=== PATIENT | female | born 1955 | race Caucasian/White ===

== ENCOUNTER → 2016-10-19 | Outpatient (CLI) | payer OTHER ==
[~2016-10-19] MED LIST: ADVIN25/60 INH; ALBU1AER9 INH; ASPI81TA28 PO; CHOL100010 PO; COEN1CAP PO; LEVO50TA6 PO; LOSA1TAB38 PO; METF-383 PO; MONT1TAB3 PO; POTA20TA16 PO; PRAV80TA2 PO; TRIATAB3 PO
--- NOTE | 2016-10-19 13:24 | MAMMOGRAPHY REPORT ---
BILATERAL DIGITAL SCREENING MAMMOGRAM TOMOSYNTHESIS WITH CAD: 10/19/2016 CLINICAL HISTORY: Routine screening examination. TECHNIQUE: Breast tomosynthesis in addition to standard 2D mammography was performed. Current study was also evaluated with a Computer Aided Detection (CAD) system. COMPARISON: Comparison is made to exams dated: 06/24/2015 mammogram, 03/24/2014 mammogram, 05/26/2010 [facility], and 11/28/2007. BREAST COMPOSITION: The tissue of both breasts is heterogeneously dense, which may obscure small mas ses. FINDINGS: There are stable asymmetries in the medial and lateral left breast, medial right breast an d subareolar right breast. No new suspicious mass, architectural distortion or cluster of microcalcif ications is seen. IMPRESSION: ACR BI-RADS CATEGORY 2: BENIGN There is no mammographic evidence of malignancy. A 1 year screening mammogram is recommended. The pa tient will receive written notification of the results. Approximately 10% of breast cancers are not detected with mammography. A negative mammographic report should not delay biopsy if a clinically suggestive mass is present. Stephanie Worrell M.D. ay/:10/19/2016 09:33:59 Riverboat Captain: Salima REYES(Ej)(M), [facility] letter sent: Normal 1/2 BI-RADS Code: ACR BI-RADS Category 2: Benign
== END | disposition home or self-care (01) ==
LOC: C.MAMM 08:49
PROVIDERS: ATTEND Obstetrics & Gynecology
DX: Z12.31 Encounter for screening mammogram for malignant neoplasm of breast (principal)

== ENCOUNTER → 2017-02-05 | Outpatient (CLI) | payer OTHER | END | disposition home or self-care (01) | LOC: C.PAPS 18:27 | PROVIDERS: ATTEND Obstetrics & Gynecology | DX: Z01.419 Encounter for gynecological examination (general) (routine) without abnormal findings (principal) ==

== ENCOUNTER 2020-01-09 09:20 | Inpatient (IN) ==
[2020-01-09] MEDS ORDERED: LORazepam 1 MG TAB PO STA (09:40)
[2020-01-09 10:14] LABS: Basophils # (auto) 0.02 K/uL (0-0.2); Basophils % (auto) 0.4 %; Eosinophils # (auto) 0.04 K/uL (0-0.5); Eosinophils % (auto) 0.8 %; Hemoglobin 14.4 g/dL (12.0-16.0); Lymphocytes # (auto) 1.24 K/uL (1.2-3.4); Lymphocytes % (auto) 24.2 %; Mean Corpuscular Hemoglobin 29.8 pg (25-34); Mean Corpuscular Hgb Conc 32.7 g/dL (32-36); Mean Corpuscular Volume 91.1 fL (80-100); Mean Platelet Volume 9.2 fL (7.4-10.4); Monocytes # (auto) 0.54 K/uL (0.11-0.59); Monocytes % (auto) 10.5 %; Neutrophils # (auto) 3.29 K/uL (1.4-6.5); Neutrophils % (auto) 64.1 %; Platelet Count 331 K/uL (130-400); RDW Coefficient of Variation 14.1 % (11.5-14.5); RDW Standard Deviation 47.4 fL (36.4-46.3); Red Blood Count 4.83 M/uL (4.2-5.4); White Blood Count 5.13 K/uL (4.8-10.8)
[2020-01-09 10:48] LABS: Acetaminophen < 2 ug/ml (10-30)
[2020-01-09 10:49] LABS: Salicylate < 1.7 mg/dl (2.8-20)
[2020-01-09 10:55] LABS: Albumin Level 3.4 gm/dl (3.4-5.0); BUN Creatinine Ratio 9.2 (10-20); Calcium 9.8 mg/dl (8.5-10.1); Creatinine Clr Calc Pharmacy 48.7 ml/min; Est GFR (African American) 68.1; Est GFR (Non-African American) 58.8; Potassium 3.8 mmol/L (3.5-5.1)
[2020-01-09 11:02] LABS: Appearance Urine Cloudy (Clear); Bacteria Urine Automated 4+ (Negative); Blood Urine Negative (Negative); Color Urine Dark Yellow; Epithelial Cell Urine Auto >30 /lpf (0-5); Glucose Urine UA Negative (Negative); Ketones Urine Negative (Negative); Leukocyte Esterase Urine 2+ (Negative); Nitrite Urine Negative (Negative); Protein Urine Negative (Negative); Specific Gravity Urine 1.021 (1.000-1.030); Urobilinogen Urine Negative (Negative); WBC Urine Automated >30 /hpf (0-5); pH Urine 5.5 (4.5-7.5)
[2020-01-09 11:06] LABS: Bilirubin Urine Negative (Negative); Ictotest Urine Negative (Negative)
[2020-01-09 11:16] LABS: Bilirubin,Total 0.7 mg/dl (0.2-1); Globulin 3.3 gm/dl (2.5-4.0); Thyroid Stimulating Hormone 0.522 uIu/ml (0.300-4.500); Total Protein 6.7 gm/dl (6.4-8.2)
[2020-01-09] MEDS ORDERED: CEFDINIR 300 MG CAP PO STA (11:48)
[2020-01-09 12:54] LABS: Amphetamines+Metham, Urine Neg (Neg); Barbiturates, Urine Neg (Neg); Benzodiazepine, Urine Neg (Neg); Cocaine, Urine Neg (Neg); MDMA (Ecstacy), Urine Neg (Neg); Methadone, Urine Neg (Neg); Opiate, Urine Neg (Neg); Phencyclidine, Urine Neg (Neg)
--- NOTE | 2020-01-09 13:29 | Emergency Department Note ---
History of Present Illness General Chief complaint: Mental Health Evaluation Stated complaint: DEPRESSION Time Seen by Provider: 01/09/20 09:28 Source: patient, family (), RN notes reviewed and old records reviewed Mode of arrival: ambulatory Limitations: no limitations History of Present Illness Provider complaint: Not taking medications, depressed, pacing Onset (ago): month(s) 1 Associated symptoms: + denies other symptoms; no chest pain, no diaphoresis, no fever/chills, no headaches, no loss of appetite, no nausea/vomiting and no shortness of breath Treatments prior to arrival: none This is a 64-year-old female who was sent in by her PCPs office directly to the emergency department over concerns that the patient has not been taking her medications for the past month. In addition to that the patient is not sleeping at night. The patient's reports that the patient is pacing around her house nonstop. Upon arrival to the emergency department the patient only says that she is sad. Most of the interview was conducted with the patient's as the patient is reluctant to answer questions. The patient continues to pace around the room while the interview was conducted. Home Medications Home Medications Medication Instructions Recorded Confirmed Type pyridoxine (vitamin B6) 50 mg 50 mg PO DAILY 04/17/19 01/09/20 History capsule albuterol sulfate [ProAir HFA] 2 puff INHALATION QID PRN 01/09/20 01/09/20 History amlodipine 10 mg PO DAILY 01/09/20 01/09/20 History aripiprazole 5 mg PO BID 01/09/20 01/09/20 History aspirin [Aspir-81] 81 mg PO DAILY 01/09/20 01/09/20 History cholecalciferol (vitamin D3) 25 mcg PO DAILY 01/09/20 01/09/20 History ciclopirox 1 applic TOPICAL HS 01/09/20 01/09/20 History coenzyme Q10 [CoQ-10] 90 mg PO DAILY 01/09/20 01/09/20 History fluticasone propion-salmeterol 1 inh INHALATION BID 01/09/20 01/09/20 History [Advair Diskus] fluticasone propionate [Flonase] 1 spray INTRANASAL DAILY 01/09/20 01/09/20 History metformin 500 mg PO BID 01/09/20 01/09/20 History montelukast 10 mg PO HS 01/09/20 01/09/20 History mupirocin 1 applic TOPICAL TID 01/09/20 01/09/20 History nortriptyline 50 mg PO HS 01/09/20 01/09/20 History pravastatin 80 mg PO HS 01/09/20 01/09/20 History telmisartan 80 mg PO DAILY 01/09/20 01/09/20 History Allergies Allergy/AdvReac Type Severity Reaction Status Date / Time atorvastatin Allergy Unknown GI UPSET Verified 04/17/19 08:47 Past Med/Surg History Medical History Callus of foot Diabetic peripheral neuropathy associated with type 2 diabetes mellitus Dysesthesia History of asthma History of diabetes mellitus History of hyperlipidemia History of hypertension History of hypothyroidism History of postmenopausal bleeding Surgical History Hx of colonoscopy S/P dilation and curettage Status post hysteroscopy with resection for intrauterine polyp removal- 1999 Family History Mother Cervical dysplasia Colonic polyp Brother Colonic polyp Sister Endometriosis Social History Smoking Status: Never smoker Hx Alcohol Use: No Hx Substance Use: No Preferred Language: Cypriot Communication Ability: Effective Piping Drafter Required: No Beliefs That Will Affect Care: Taoist (Patient indicates that she was raised [facility], but she and her have recently attended a [facility] latter-day.) marital status: Feels Safe at Home: Yes Assistive Devices: Glasses Review of Systems A total of 10 systems reviewed and were otherwise negative Physical Exam Vital Signs Vital Signs - 24 hr 01/09/20 12:16 Pulse Rate [Radial] 74 Pulse Rhythm [Radial] Regular Pulse Strength [Radial] Normal Respiratory Rate 18 Respiratory Effort / Characteristics Non-Labored Spontaneous Respiratory Depth Normal Respiratory Pattern Regular Blood Pressure [Right Arm] 159/99 H Blood Pressure Mean [Right Arm] 119 Pulse Oximetry 99 Oxygen Delivery Method Room Air -VITAL SIGNS - Vital signs and nursing notes were reviewed. GENERAL - 64-year-old female appearing stated age who is in no acute distress. Paces nonstop around the room SKIN - Without rashes. HEAD - NC/AT. EYES - PERRL with EOMI bilaterally. Sclera anicteric. Palpebral conjunctiva pink and moist with no injection noted. EARS - No deformities of external structures noted on gross examination bilaterally. No pain elicited with palpation of the tragus bilaterally. External auditory canals without discharge or otorrhea. Tympanic membranes pearly meade wi thout retraction or bulging. No fluid or purulent material visualized behind the TM. Handle of malleus, umbo, cone of light, pars tensa/flaccid all easily visualized. NOSE - Midline and without cyanosis. No epistaxis or purulent drainage noted. Septum midline without deviation or septal hematoma noted. MOUTH/OROPHARYNX - Without perioral cyanosis. Buccal mucosa pink and moist and without leukoplakia. Tongue midline with equal elevation of palate bilaterally. No tonsillar hypertrophy, erythema, or exudates noted. dentition noted. NECK - Neck with FROM. Supple to palpation. lymphadenopathy noted. No nuchal rigidity. LUNGS - Chest wall symmetric without accessory muscle use, intercostals retractions, or central cyanosis. Normal vesicular breath sounds CTA B/L. No wheezes, rales, or rhonchi appreciated. CARDIAC - RRR with S1/S2. No murmur, rubs, or gallops appreciated. ABDOMEN - Abdominal contour without pulsations or visible masses. BS normoactive all four quadrants. No tenderness, palpable masses, hepatosplenomegaly, or ascites noted. EXTREMITIES - No clubbing or peripheral cyanosis. No pretibial edema present. +3/5 radial, posterior tibial, and dorsalis pedis pulses palpated throughout. +5/5 strength noted in UE/LE bilaterally. NEUROLOGIC - Cranial nerves II through XII grossly intact. Sensory intact to light touch throughout. Patellar reflexes +2/4. PSYCH - A&Ox3 and cooperates fully with examiner. Pt is very pleasant and interacts well with examiner. Course Administered Medications Cefdinir (Cefdinir 300 Mg Cap) 300 mg PO Q12H [facility] Stop: 01/16/20 18:29 Last Admin: 01/10/20 06:16 Dose: 300 mg Documented by: [id number] Admin: 01/09/20 20:54 Dose: 300 mg Documented by: [id number] Diazepam (Diazepam 2 Mg Tablet) 2 mg PO TID [facility] Stop: 02/08/20 20:59 Last Admin: 01/10/20 09:12 Dose: 2 mg Documented by: [id number] Admin: 01/09/20 20:54 Dose: 2 mg Documented by: [id number] Metformin HCl (Metformin Hcl Er 500 Mg Tabcr) 500 mg PO BIDM MOHIT Stop: 02/08/20 17:44 Last Admin: 01/10/20 09:12 Dose: 500 mg Documented by: [id number] Admin: 01/09/20 17:38 Dose: 500 mg Documented by: [id number] Venlafaxine HCl (Venlafaxine Hcl Xr 37.5 Mg Capxr) 37.5 mg PO QAM MOHIT Stop: 02/09/20 08:59 Last Admin: 01/10/20 09:12 Dose: 37.5 mg Documented by: [id number] Discontinued Medications Cefdinir (Cefdinir 300 Mg Cap) 300 mg PO ONE STA Stop: 01/09/20 11:49 Last Admin: 01/09/20 12:07 Dose: 300 mg Documented by: [id number] Diazepam (Diazepam 5 Mg Tablet) 5 mg PO NOW STA Stop: 01/09/20 16:47 Last Admin: 01/09/20 17:02 Dose: 5 mg Documented by: [id number] Lorazepam (Lorazepam 1 Mg Tab) 1 mg PO NOW STA Stop: 01/09/20 09:41 Last Admin: 01/09/20 10:15 Dose: 1 mg Documented by: [id number] Medical Decision Making Differential Diagnosis Mood disorder, infection, hypoglycemia, electrolyte abnormalities, cardiac sources, intracerebral event, toxicologic, trauma, neurologic, as well as other pathologies. Medical Records Attestation: I reviewed the patient's medical records. Home Medications Current Medication List: was personally reviewed by me Laboratory Data Attestation: I reviewed the patient's lab results. Result diagrams: 01/09/20 09:57 01/09/20 09:57 Lab Results 01/09/20 01/09/20 01/09/20 Range/Units 09:57 09:57 09:57 WBC 5.13 (4.8-10.8) K/uL RBC 4.83 (4.2-5.4) M/uL Hgb 14.4 (12.0-16.0) g/dL Hct 44.0 (37-47) % MCV 91.1 (80-100) fL MCH 29.8 (25-34) pg MCHC 32.7 (32-36) g/dL RDW Std Deviation 47.4 H (36.4-46.3) fL RDW Coeff of Americo 14.1 (11.5-14.5) % Plt Count 331 (130-400) K/uL MPV 9.2 (7.4-10.4) fL Immature Gran % (Auto) 0.0 % Neut % (Auto) 64.1 % Lymph % (Auto) 24.2 % Harding % (Auto) 10.5 % Eos % (Auto) 0.8 % Baso % (Auto) 0.4 % Neut # (Auto) 3.29 (1.4-6.5) K/uL Lymph # (Auto) 1.24 (1.2-3.4) K/uL Harding # (Auto) 0.54 (0.11-0.59) K/uL Eos # (Auto) 0.04 (0-0.5) K/uL Baso # (Auto) 0.02 (0-0.2) K/uL Immature Gran # (Auto) 0.00 (0.00-0.02) K/uL Sodium 139 (136-145) mmol/L Potassium 3.8 (3.5-5.1) mmol/L Chloride 106 (98-107) mmol/L Carbon Dioxide 26 (21-32) mmol/L Anion Gap 7.0 (3-11) BUN 9 (7-18) mg/dl Creatinine 1.01 (0.6-1.2) mg/dl Est Cr Clr Drug Dosing 48.7 ml/min Est GFR ( Amer) 68.1 Est GFR (Non-Af Amer) 58.8 BUN/Creatinine Ratio 9.2 L (10-20) Glucose 164 H (70-99) mg/dl Calcium 9.8 (8.5-10.1) mg/dl Total Bilirubin 0.7 (0.2-1) mg/dl AST 17 (15-37) U/L ALT 21 (12-78) U/L Alkaline Phosphatase 85 (45-117) U/L Total Protein 6.7 (6.4-8.2) gm/dl Albumin 3.4 (3.4-5.0) gm/dl Globulin 3.3 (2.5-4.0) gm/dl Albumin/Globulin Ratio 1.0 (0.9-2) TSH 0.522 (0.300-4.500) uIu/ml Urine Color Urine Appearance (Clear) Urine pH (4.5-7.5) Ur Specific Stanford (1.000-1.030) Urine Protein (Negative) Urine Glucose (UA) (Negative) Urine Ketones (Negative) Urine Blood (Negative) Urine Nitrite (Negative) Urine Bilirubin (Negative) Urine Urobilinogen (Negative) Ur Leukocyte Esterase (Negative) Urine WBC (Auto) (0-5) /hpf Urine RBC (Auto) (0-4) /hpf U Hyaline Cast (Auto) (0-5) /lpf U Epithel Cells (Auto) (0-5) /lpf Urine Bacteria (Auto) (Negative) Urine Crystals Salicylates < 1.7 L (2.8-20) mg/dl Urine Opiates Screen Ur Methadone, Qual Acetaminophen < 2 L (10-30) ug/ml Urine Barbiturates Ur Phencyclidine (PCP) U Amphetamin/Meth Scrn MDMA (Ecstasy) Screen U Benzodiazepines Scrn Ur Cocaine Metabolite U Marijuana (THC) Screen Ethyl Alcohol mg/dL (0-3) mg/dl COVID-19 Eval Order SARS-CoV-2, RNA, NAAT (NEGATIVE) 01/09/20 01/09/20 01/09/20 Range/Units 09:57 10:48 10:48 WBC (4.8-10.8) K/uL RBC (4.2-5.4) M/uL Hgb (12.0-16.0) g/dL Hct (37-47) % MCV (80-100) fL MCH (25-34) pg MCHC (32-36) g/dL RDW Std Deviation (36.4-46.3) fL RDW Coeff of Americo (11.5-14.5) % Plt Count (130-400) K/uL MPV (7.4-10.4) fL Immature Gran % (Auto) % Neut % (Auto) % Lymph % (Auto) % Harding % (Auto) % Eos % (Auto) % Baso % (Auto) % Neut # (Auto) (1.4-6.5) K/uL Lymph # (Auto) (1.2-3.4) K/uL Harding # (Auto) (0.11-0.59) K/uL Eos # (Auto) (0-0.5) K/uL Baso # (Auto) (0-0.2) K/uL Immature Gran # (Auto) (0.00-0.02) K/uL Sodium (136-145) mmol/L Potassium (3.5-5.1) mmol/L Chloride (98-107) mmol/L Carbon Dioxide (21-32) mmol/L Anion Gap (3-11) BUN (7-18) mg/dl Creatinine (0.6-1.2) mg/dl Est Cr Clr Drug Dosing ml/min Est GFR ( Amer) Est GFR (Non-Af Amer) BUN/Creatinine Ratio (10-20) Glucose (70-99) mg/dl Calcium (8.5-10.1) mg/dl Total Bilirubin (0.2-1) mg/dl AST (15-37) U/L ALT (12-78) U/L Alkaline Phosphatase (45-117) U/L Total Protein (6.4-8.2) gm/dl Albumin (3.4-5.0) gm/dl Globulin (2.5-4.0) gm/dl Albumin/Globulin Ratio (0.9-2) TSH (0.300-4.500) uIu/ml Urine Color Dark Yellow Urine Appearance Cloudy A (Clear) Urine pH 5.5 (4.5-7.5) Ur Specific Stanford 1.021 (1.000-1.030) Urine Protein Negative (Negative) Urine Glucose (UA) Negative (Negative) Urine Ketones Negative (Negative) Urine Blood Negative (Negative) Urine Nitrite Negative (Negative) Urine Bilirubin Negative (Negative) Urine Urobilinogen Negative (Negative) Ur Leukocyte Esterase 2+ H (Negative) Urine WBC (Auto) >30 H (0-5) /hpf Urine RBC (Auto) 5-10 H (0-4) /hpf U Hyaline Cast (Auto) 10-30 H (0-5) /lpf U Epithel Cells (Auto) >30 H (0-5) /lpf Urine Bacteria (Auto) 4+ H (Negative) Urine Crystals Not Reportable Salicylates (2.8-20) mg/dl Urine Opiates Screen Cancelled Ur Methadone, Qual Cancelled Acetaminophen (10-30) ug/ml Urine Barbiturates Cancelled Ur Phencyclidine (PCP) Cancelled U Amphetamin/Meth Scrn Cancelled MDMA (Ecstasy) Screen Cancelled U Benzodiazepines Scrn Cancelled Ur Cocaine Metabolite Cancelled U Marijuana (THC) Screen Cancelled Ethyl Alcohol mg/dL < 3.0 (0-3) mg/dl COVID-19 Eval Order SARS-CoV-2, RNA, NAAT (NEGATIVE) 01/09/20 01/09/20 01/09/20 Range/Units 12:05 12:16 12:16 WBC (4.8-10.8) K/uL RBC (4.2-5.4) M/uL Hgb (12.0-16.0) g/dL Hct (37-47) % MCV (80-100) fL MCH (25-34) pg MCHC (32-36) g/dL RDW Std Deviation (36.4-46.3) fL RDW Coeff of Americo (11.5-14.5) % Plt Count (130-400) K/uL MPV (7.4-10.4) fL Immature Gran % (Auto) % Neut % (Auto) % Lymph % (Auto) % Harding % (Auto) % Eos % (Auto) % Baso % (Auto) % Neut # (Auto) (1.4-6.5) K/uL Lymph # (Auto) (1.2-3.4) K/uL Harding # (Auto) (0.11-0.59) K/uL Eos # (Auto) (0-0.5) K/uL Baso # (Auto) (0-0.2) K/uL Immature Gran # (Auto) (0.00-0.02) K/uL Sodium (136-145) mmol/L Potassium (3.5-5.1) mmol/L Chloride (98-107) mmol/L Carbon Dioxide (21-32) mmol/L Anion Gap (3-11) BUN (7-18) mg/dl Creatinine (0.6-1.2) mg/dl Est Cr Clr Drug Dosing ml/min Est GFR ( Amer) Est GFR (Non-Af Amer) BUN/Creatinine Ratio (10-20) Glucose (70-99) mg/dl Calcium (8.5-10.1) mg/dl Total Bilirubin (0.2-1) mg/dl AST (15-37) U/L ALT (12-78) U/L Alkaline Phosphatase (45-117) U/L Total Protein (6.4-8.2) gm/dl Albumin (3.4-5.0) gm/dl Globulin (2.5-4.0) gm/dl Albumin/Globulin Ratio (0.9-2) TSH (0.300-4.500) uIu/ml Urine Color Urine Appearance (Clear) Urine pH (4.5-7.5) Ur Specific Stanford (1.000-1.030) Urine Protein (Negative) Urine Glucose (UA) (Negative) Urine Ketones (Negative) Urine Blood (Negative) Urine Nitrite (Negative) Urine Bilirubin (Negative) Urine Urobilinogen (Negative) Ur Leukocyte Esterase (Negative) Urine WBC (Auto) (0-5) /hpf Urine RBC (Auto) (0-4) /hpf U Hyaline Cast (Auto) (0-5) /lpf U Epithel Cells (Auto) (0-5) /lpf Urine Bacteria (Auto) (Negative) Urine Crystals Salicylates (2.8-20) mg/dl Urine Opiates Screen Neg Ur Methadone, Qual Neg Acetaminophen (10-30) ug/ml Urine Barbiturates Neg Ur Phencyclidine (PCP) Neg U Amphetamin/Meth Scrn Neg MDMA (Ecstasy) Screen Neg U Benzodiazepines Scrn Neg Ur Cocaine Metabolite Neg U Marijuana (THC) Screen Neg Ethyl Alcohol mg/dL (0-3) mg/dl COVID-19 Eval Order Covid19 [facility] SARS-CoV-2, RNA, NAAT NEGATIVE (NEGATIVE) MDM Narrative This 64-year-old female who presents emergency department complaining of pacing nonstop and not taking her medications for the past month. The patient was sent in by her primary care physician. Patient had been admitted to the [facility] approximately 2 months ago however per her they did nothing and did not change any of her medications. The patient was medically cleared by me. She is oliva negative. She does appear to have a urinary tract infection therefore was started on cefdinir here in the emergency department. She was independently evaluated by psychiatric case liaison. She does not have an elevation in her white blood cell count. Patient was seen and evaluated as above in room A5. Review was performed of nursing notes and vital signs. I did review pertinent previous visits and patient history. After obtaining a thorough history and physical examination the above work up was performed. Patient was then independently evaluated by 3 S. and was subsequently admitted. The patient was evaluated during the global COVID-19 pandemic, and that diagnosis was suspected/considered upon their initial presentation. Their evaluation, treatment and testing was consistent with current guidelines for patients who present with complaints or symptoms that may be related to COVID- 19. Impression & Plan UTI (urinary tract infection), Mood disorder Discharge Plan Visit Data Chief Complaint: Mental Health Evaluation Stated Complaint: DEPRESSION ED Provider: Sarkis Cantu Discharge Problem: UTI (urinary tract infection), Mood disorder Patient Disposition: Admitted As Inpatient Discharge Instructions Interventions: ED Discharge Assessment Last Done: 01/09/20 15:47 Discharge Problem: UTI (urinary tract infection) Qualifiers: Urinary tract infection type: site unspecified Hematuria presence: without hematuria Qualified Code(s): N39.0 - Urinary tract infection, site not specified
[2020-01-09] MEDS ORDERED: ACETAMINOPHEN 325 MG TAB PO PRN (14:08)
[2020-01-09] MEDS ORDERED: ALUMINUM/MAGNESIUM SUSP 30 ML UDC PO PRN (14:08)
[2020-01-09] MEDS ORDERED: SODIUM CHLORIDE 0.65% NA SOLN 45 ML (OCEAN) PRN (14:08)
[2020-01-09] MEDS ORDERED: MAGNESIUM HYDROXIDE SUSP 30 ML UDC PO PRN (14:08)
[2020-01-09] MEDS ORDERED: hydrOXYzine HCl 25 MG TAB PO PRN ×2 (14:08)
[2020-01-09] MEDS ORDERED: BISMUTH SUBSALICYLATE LIQD 236 ML PO PRN (14:08)
[2020-01-09] MEDS ORDERED: diazePAM 5 MG TABLET PO STA (16:46)
--- NOTE | 2020-01-09 17:29 | History & Physical ---
Date of Service January 09, 2020 Impression / Recommendations Impression This 64-year-old woman reportedly had no premorbid psychiatric history, and is recently as last year was described as being high functioning, "in charge," and happy. 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 She was hospitalized in October at the [facility], and was discharged for outpatient treatment with a psychiatrist, but has not followed through recently. Her symptoms of depression reportedly include depressed mood, and although the patient says "I cannot cry," she cried during the assessment today. She also notes that she has initial, intermittent and terminal insomnia. Further, the patient reports difficulty concentrating, ambivalence, apathy, anhedonia, anergia, irritable mood, and fretful ruminations and severe anxious distress. The patient says that her anxious distress includes feelings that something terrible is about to happen, that, for example, something might happen to her children and she will not be in a position to help them, and she feels extremely restless and unable to sit still for more than a matter of a few minutes. Her concentration has become so poor that she cannot stand to watch television or read. About a month ago, the patient stopped all of her medications, including her somatic medications as well as her psychiatric medications. She has a history of type 2 diabetes, hypertension, hyperlipidemia, and asthma, but notes that taking her medications for these conditions makes her "more anxious" and she worries about the negative effects they may have on her long-term health. Also, she has stopped all psychiatric medications which, most recently had been aripiprazole and nortriptyline. She has a tendency to catastrophize and make sleeping statements such as "nothing helps. Nothing ever well," but she also acknowledges that she finally did get some relief earlier today when she was given lorazepam 1 mg in the emergency room. She notes that the anxiety abated, but the improvement did not last and was rekindled when she learned that the recommendation was for her to be admitted to the psychiatric unit. It is not clear to what degree the patient has not been sleeping, but she may be experiencing akathisia associated with sleep deprivation. More likely, the patient is experiencing severe generalized anxiety and is simply overwhelmed by her fretful negative thoughts. Some of the patient's fears of border on the psychotic. For example, she tells me that she is constantly afraid that something "terrible" may happen to 1 of her children or 1 of her grandchildren and that she will not be in a position to rescue them." When asked what she is afraid could happen, she said "anything. This is not a safe world." Given the fact that the patient has reported that she has responded to benzodiazepines in the past, I have talked to her about the temporary use of a relatively long- acting benzodiazepine such as diazepam. Have also talked to her about various psychiatric medications that may help with both her depression and anxiety, such as venlafaxine or Lexapro. The patient tells us that she is able to trust us, but is deeply afraid that she will be turned into a "zombie" by which she means that she will be asleep or confined to a chair. 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 The patient states, "we did everything we could to raise them right. In a way I feel responsible for what happened." (Collateral information from the patient's in this regard will be important.) The biggest concern is the fact that the patient not only has not been taking her medicine, but has been eating poorly and is not sleeping or otherwise caring for her own physical needs (according to her ). In this case, the patient's depression and anxiety have rendered her gravely disabled and inpatient psychiatric hospitalization is currently in the least intensive, least restrictive level of care consistent with the patient's clinical needs and safety. Because the patient is very reluctant to take medications, we were withholding her antihypertensive medication because her blood pressure is not currently elevated and her oral intake has been poor. We will continue to monitor her blood pressure. We also are not ordering her statin because of the patient's current anxieties about taking medication and we feel that this is a medication that may be omitted safely, temporarily, until the patient's psychiatric condition improves. (1) Severe depression: 01/08 -The patient has been admitted to the inpatient psychiatric service at [facility], a [facility] behavioral health unit. She has been referred for individual, group, activity and family therapy. She is also being closely monitored. -Begin venlafaxine ER 37.5 mg twice a day. Present on Admission?: Yes (2) Severe anxiety: 01/08 -The patient has been given a medically necessary private room because of her extreme restlessness and need to pace. -Patient has been offered a trial of diazepam 5 mg by mouth. The context is that the patient's report that lorazepam 1 mg by mouth providers earlier in the day was helpful to her, but the benefit was not sustained. Accordingly, we will try diazepam because it is longer acting. -As tolerated, the patient will be given diazepam 2 mg 3 times daily as a standing dose medication. -Hydroxyzine is available as an as needed medication. She will also be eligible to receive hydroxyzine 50 mg at bedtime for sleep, and her third dose of diazepam 2 mg will be given near to the hours of sleep, and may serve as a soporific. (3) UTI (urinary tract infection): 01/08 -Although the patient does not complain of any urinary tract infection symptoms, there were 4+ bacteria in her urine sample, and it was recommended in the emergency department that she be treated with an antibiotic empirically. -We will continue to monitor for symptoms of urinary tract infection Present on Admission?: Yes (4) Callus of foot: 01/08 -This is currently being monitored. No intervention is believed to be necessary at the present time. Present on Admission?: Yes Inventory Assets Strengths: Positive premorbid history. Strong supportive marriage. Intelligent. Needs: Improved mood. Risk Factors Assessment Severe depression. Multiple psychosocial stressors. Male: No : Yes Do You Have Access To A Gun?: No Health Problems: Yes Mental Health Diagnoses: Yes Substance Use Disorders: No Previous Attempt: No Family History of Suicide: No Previous Psychiatric Hospitalization: Yes Hopelessness: Yes Smoker: No Protective Factors Assessment Nondenominational Beliefs: Yes : Yes Responsible for Young Children: No Employed: No Stable Relationships: Yes Supportive Family: Yes Good Rapport with Provider: No Absence of Any Risk Factors Above: No Psychiatric History Identifying Data DELMI RAMIREZ is a 64-year-old F who currently lives in the [place] area with her . Has a history of anxiety and depression, and was admitted on 01/09/20 14:08 on a 201 voluntary commitment for intractable anxiety, inability to adequately care for her own physical needs, and severe depression.. Chief Complaint " I am so nervous!" History of Present Illness The patient is a 64-year-old woman who had been referred to the emergency room from her primary care physician's office because she disclosed that she had stopped taking all of her medications (somatic and psychiatric) approximately a month ago because of severe anxiety and feelings of impending doom. History is gathered both from the patient and, and directly, from her . The patient reports that until she did not have a history of any psychiatric illnesses. However, in the past 3 or 4 months the patient has developed the fairly rapid onset of severe symptoms of depression and anxiety. 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 Once later, when the business restrictions were revised and it would have been possible for her to reopen her business, she said that she had lost all of her customers and did not know how to go about reestablishing herself. The closure of the business represented a personal defeat for the patient and, also, placed a financial hardship on the family (at least according to the patient). Also, the patient notes that for about the past year she and her have been attempting to assist their 3 adult childrenall 3 of which reportedly have various problems, including marital difficulties and other problems that the patient declines to identify. Within this context, the patient became aware that her anxiety was worsening. She reports that her mood became very depressed, and she experienced other symptoms of depression including apathy, anergia, anhedonia, poor concentration ("I cannot even watch television") and severe anxious distress with a tendency to fret, catastrophize, and ruminate excessively. The patient describes her anxiety as feeling "extremely jumpy," and she notes that it is extremely difficult for her to sit still. Her notes that she is not sleeping very well, and seems to pace almost continuously at home. There is no cogwheeling on examination and, as above, the patient reports that she had stopped all of her medications approximately a month ago. She was hospitalized psychiatrically at [place], and was placed on several psychiatric medications, including but not limited to sertraline and Abilify. The patient reported these medications did not help, and she states, "nothing has helped!" According to the , this time last year the patient was a high functioning woman who ran a successful business and was a source of emotional support for a number of other people. The patient, herself, says that this time last year she "had the world by the tail," but now she is "barely able to function." Within this context, the patient notes that she has lost approximately 35 pounds because she has had no appetite. She notes that the reason that she is not taking medications is that she is afraid of him because she is afraid that they will turn her into a "zombie," and that she will end up "1 of those people who sleeps all the time and just stares at the torres." Past Psychiatric History Previous Psych History: Patient reports no premorbid psychiatric history. There is no previous episode of depression or anxiety. She reports that the current episode began approximately 3 or 4 months ago and included [facility]. She also is being followed on an outpatient basis by a local psychiatrist, and indicates that she has been tried on "lots of medications." She recalls that she took Zoloft at one point in the past, but stopped it because "it seemed like it made me worse." She most recently has been prescribed aripiprazole and nortriptyline, but also says that she does not feel that these were helpful medications and, as above, stopped taking them in November 2019. Current Psychiatric Diagnosis: Major Depressive Disorder Outpatient Services: Patient has been followed on an outpatient basis by a local psychiatrist, but she reports that she dropped out of treatment. Previous Psych Admissions: [place], for an unspecified period of time in October 2019. Do You Have Access To A Gun?: No History of Previous Suicide Attempt: No Past Medication Trials: Sertraline, aripiprazole, nortriptyline, and others that the patient cannot name or recall. Although the patient reported during the admission assessment that "nothing has ever helped," she later allowed that a dose of lorazepam that she had received in the emergency department did help significantly, but the relief was short-lived and dissipated after learning that she was going to be admitted to the psychiatric service. Past Head Trauma/Neuro History History of Concussion/Seizure: No Allergies Allergy/AdvReac Type Severity Reaction Status Date / Time atorvastatin Allergy Unknown GI UPSET Verified 04/17/19 08:47 Home Medications Home Medications Medication Instructions Recorded Confirmed Type pyridoxine (vitamin B6) 50 mg 50 mg PO DAILY 04/17/19 01/09/20 History capsule albuterol sulfate [ProAir HFA] 2 puff INHALATION QID PRN 01/09/20 01/09/20 History amlodipine 10 mg PO DAILY 01/09/20 01/09/20 History aripiprazole 5 mg PO BID 01/09/20 01/09/20 History aspirin [Aspir-81] 81 mg PO DAILY 01/09/20 01/09/20 History cholecalciferol (vitamin D3) 25 mcg PO DAILY 01/09/20 01/09/20 History ciclopirox 1 applic TOPICAL HS 01/09/20 01/09/20 History coenzyme Q10 [CoQ-10] 90 mg PO DAILY 01/09/20 01/09/20 History fluticasone propion-salmeterol 1 inh INHALATION BID 01/09/20 01/09/20 History [Advair Diskus] fluticasone propionate [Flonase] 1 spray INTRANASAL DAILY 01/09/20 01/09/20 History metformin 500 mg PO BID 01/09/20 01/09/20 History montelukast 10 mg PO HS 01/09/20 01/09/20 History mupirocin 1 applic TOPICAL TID 01/09/20 01/09/20 History nortriptyline 50 mg PO HS 01/09/20 01/09/20 History pravastatin 80 mg PO HS 01/09/20 01/09/20 History telmisartan 80 mg PO DAILY 01/09/20 01/09/20 History Family History Family History of: Bipolar Family Mental Health History Comment: The patient reports that her sister was diagnosed with bipolar disorder, but "outgrew it." At the same time, the patient reports that her sister has been actively encouraging her to seek psychiatric treatment and adhere with recommendations, including medication recommendations. Alcohol History Hx of Alcohol Use Over the Past 12 Months: No AUDIT Total Score: 0 Smoking Use Have You Smoked or Used Tobacco Products in the Last 30 Days: No Smoking Status: Never smoker Substance History Hx of Prescription Med Misuse Over the Past 12 Months: No Hx of Over the Counter Med Misuse Over the Past 12 Months: No Hx of Inhalent Misuse Over the Past 12 Months: No Hx of Organic Substance Use Over the Past 12 Months: No Hx of Illegal Substances/Street Drug Use Over Past 12 Months: No Problems as a Result of Past Substance Use: None Identified Personal History Living Arrangements: Home Living Arrangements Comments: The patient has been for approximately 44 years. She notes that she and her have a mutually supportive and happy marriage. The patient lives with her . Born In: [place]. 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 None of her children live in [place]. However, one her grandchildren lives with the patient's [id number] in [place]. Beliefs That Will Affect Care: Nondenominational (Patient indicates that she was raised [facility], but she and her have recently attended a [facility] baptism.) Current Legal Problems: No Hx Legal Problems: No Hx Traumatic Life Events: No Psychological Trauma History Comment: The patient reports that she had a happy childhood and there is no history of trauma. The loss of her business was a precipitating factor in her current depression Patient History Medical History Callus of foot Diabetic peripheral neuropathy associated with type 2 diabetes mellitus Dysesthesia History of asthma History of diabetes mellitus History of hyperlipidemia History of hypertension History of hypothyroidism History of postmenopausal bleeding Surgical History Hx of colonoscopy S/P dilation and curettage Status post hysteroscopy with resection for intrauterine polyp removal- 1999 Family History Mother Cervical dysplasia Colonic polyp Brother Colonic polyp Sister Endometriosis Social History Smoking Status: Never smoker Hx Alcohol Use: No Hx Substance Use: No Preferred Language: Amharic Communication Ability: Effective Manager Policy Required: No Beliefs That Will Affect Care: Nondenominational (Patient indicates that she was raised [facility], but she and her have recently attended a [employer] baptism.) marital status: Feels Safe at Home: Yes Assistive Devices: Glasses Review of Systems Review of Systems: All systems reviewed & are unremarkable except as noted in HPI & below The admission physical examination, somatic history and review of systems is completed by Dr. Sarkis Cantu of the emergency department has been reviewed and is excepted for purposes of medical clearance to the behavioral health unit. As part of the psychiatric admission assessment, at least 10 systems were reviewed with the patient. She initially said that she had "no" nonpsychiatric health problems. However, when confronted with the fact that she is taking metformin, or is supposed to be, she acknowledged type 2 diabetes, hypercholesterolemia, hypertension, and asthma. She also has painful bunions on both feet. Physical Exam Psychiatric: Orientation: alert, oriented x 3 and cooperative Apperance: appropriately dressed, appropriately groomed and appeared stated age Eye Contact: + fair eye contact Motor Behavior: + psychomotor agitation and + akathisia The patient is unable to sit still for more than a few minutes and paces almost constantly throughout the examination. The patient's speech is soft, slow, and generally not spontaneous. Affect: + depressed affect, + anxious affect and + tearful affect Mood: + depressed mood, + anxious mood and + irritable mood Thought Process: goal directed thought process and + perseveration Thought Content: reality based without delusions Suicidal Thoughts: denies suicidal thoughts Homicidal Thoughts: denies homicidal thoughts Hallucinations: no auditory hallucinations, no visual hallucinations, no tactile hallucinations and no gustatory hallucinations Cognition: recent memory grossly intact, remote memory grossly intact and language grossly intact; + attention not intact Estimated Intelligence: + above average estimated intelligence Insight: + poor insight Judgement: + poor judgement Vital Signs (Past 24 Hours): Last Vital Signs Temp 36.8 C 01/09/20 16:30 Pulse 101 H 01/09/20 16:30 Resp 22 01/09/20 16:30 BP 125/76 01/09/20 16:30 Pulse Ox 98 01/09/20 16:30 Results & Data ([facility]) Laboratory Results Laboratory Results - last 24 hr 01/09/20 01/09/20 01/09/20 09:57 09:57 09:57 WBC 5.13 RBC 4.83 Hgb 14.4 Hct 44.0 MCV 91.1 MCH 29.8 MCHC 32.7 RDW Std Deviation 47.4 H RDW Coeff of Americo 14.1 Plt Count 331 MPV 9.2 Immature Gran % (Auto) 0.0 Neut % (Auto) 64.1 Lymph % (Auto) 24.2 [place] % (Auto) 10.5 Eos % (Auto) 0.8 Baso % (Auto) 0.4 Neut # (Auto) 3.29 Lymph # (Auto) 1.24 [place] # (Auto) 0.54 Eos # (Auto) 0.04 Baso # (Auto) 0.02 Immature Gran # (Auto) 0.00 Sodium 139 Potassium 3.8 Chloride 106 Carbon Dioxide 26 Anion Gap 7.0 BUN 9 Creatinine 1.01 Est Cr Clr Drug Dosing 48.7 Est GFR ( Amer) 68.1 Est GFR (Non-Af Amer) 58.8 BUN/Creatinine Ratio 9.2 L Glucose 164 H Calcium 9.8 Total Bilirubin 0.7 AST 17 ALT 21 Alkaline Phosphatase 85 Total Protein 6.7 Albumin 3.4 Globulin 3.3 Albumin/Globulin Ratio 1.0 TSH 0.522 Urine Color Urine Appearance Urine pH Ur Specific Lynn Urine Protein Urine Glucose (UA) Urine Ketones Urine Blood Urine Nitrite Urine Bilirubin Urine Urobilinogen Ur Leukocyte Esterase Urine WBC (Auto) Urine RBC (Auto) U Hyaline Cast (Auto) U Epithel Cells (Auto) Urine Bacteria (Auto) Urine Crystals Salicylates < 1.7 L Urine Opiates Screen Ur Methadone, Qual Acetaminophen < 2 L Urine Barbiturates Ur Phencyclidine (PCP) U Amphetamin/Meth Scrn MDMA (Ecstasy) Screen U Benzodiazepines Scrn Ur Cocaine Metabolite U Marijuana (THC) Screen Ethyl Alcohol mg/dL COVID-19 Eval Order SARS-CoV-2, RNA, NAAT 01/09/20 01/09/20 01/09/20 09:57 10:48 10:48 WBC RBC Hgb Hct MCV MCH MCHC RDW Std Deviation RDW Coeff of Americo Plt Count MPV Immature Gran % (Auto) Neut % (Auto) Lymph % (Auto) [place] % (Auto) Eos % (Auto) Baso % (Auto) Neut # (Auto) Lymph # (Auto) [place] # (Auto) Eos # (Auto) Baso # (Auto) Immature Gran # (Auto) Sodium Potassium Chloride Carbon Dioxide Anion Gap BUN Creatinine Est Cr Clr Drug Dosing Est GFR ( Amer) Est GFR (Non-Af Amer) BUN/Creatinine Ratio Glucose Calcium Total Bilirubin AST ALT Alkaline Phosphatase Total Protein Albumin Globulin Albumin/Globulin Ratio TSH Urine Color Dark Yellow Urine Appearance Cloudy A Urine pH 5.5 Ur Specific Lynn 1.021 Urine Protein Negative Urine Glucose (UA) Negative Urine Ketones Negative Urine Blood Negative Urine Nitrite Negative Urine Bilirubin Negative Urine Urobilinogen Negative Ur Leukocyte Esterase 2+ H Urine WBC (Auto) >30 H Urine RBC (Auto) 5-10 H U Hyaline Cast (Auto) 10-30 H U Epithel Cells (Auto) >30 H Urine Bacteria (Auto) 4+ H Urine Crystals Not Reportable Salicylates Urine Opiates Screen Cancelled Ur Methadone, Qual Cancelled Acetaminophen Urine Barbiturates Cancelled Ur Phencyclidine (PCP) Cancelled U Amphetamin/Meth Scrn Cancelled MDMA (Ecstasy) Screen Cancelled U Benzodiazepines Scrn Cancelled Ur Cocaine Metabolite Cancelled U Marijuana (THC) Screen Cancelled Ethyl Alcohol mg/dL < 3.0 COVID-19 Eval Order SARS-CoV-2, RNA, NAAT 01/09/20 01/09/20 01/09/20 12:05 12:16 12:16 WBC RBC Hgb Hct MCV MCH MCHC RDW Std Deviation RDW Coeff of Americo Plt Count MPV Immature Gran % (Auto) Neut % (Auto) Lymph % (Auto) [place] % (Auto) Eos % (Auto) Baso % (Auto) Neut # (Auto) Lymph # (Auto) [place] # (Auto) Eos # (Auto) Baso # (Auto) Immature Gran # (Auto) Sodium Potassium Chloride Carbon Dioxide Anion Gap BUN Creatinine Est Cr Clr Drug Dosing Est GFR ( Amer) Est GFR (Non-Af Amer) BUN/Creatinine Ratio Glucose Calcium Total Bilirubin AST ALT Alkaline Phosphatase Total Protein Albumin Globulin Albumin/Globulin Ratio TSH Urine Color Urine Appearance Urine pH Ur Specific Lynn Urine Protein Urine Glucose (UA) Urine Ketones Urine Blood Urine Nitrite Urine Bilirubin Urine Urobilinogen Ur Leukocyte Esterase Urine WBC (Auto) Urine RBC (Auto) U Hyaline Cast (Auto) U Epithel Cells (Auto) Urine Bacteria (Auto) Urine Crystals Salicylates Urine Opiates Screen Neg Ur Methadone, Qual Neg Acetaminophen Urine Barbiturates Neg Ur Phencyclidine (PCP) Neg U Amphetamin/Meth Scrn Neg MDMA (Ecstasy) Screen Neg U Benzodiazepines Scrn Neg Ur Cocaine Metabolite Neg U Marijuana (THC) Screen Neg Ethyl Alcohol mg/dL COVID-19 [facility] SARS-[facility], RNA, NAAT NEGATIVE Current Inpatient Medications Current Inpatient Medications: Current Inpatient Medications Acetaminophen (Acetaminophen 325 Mg Tab) 650 mg PO Q4H PRN PRN Reason: Headache or Minor Fever Stop: 02/08/20 14:07 Al Hydrox/Mg Hydrox/Simethicone (Aluminum/Magnesium Susp 30 Ml Udc) 30 ml PO Q4H PRN PRN Reason: GI Upset Stop: 02/08/20 14:07 Bismuth Subsalicylate (Bismuth Subsalicylate Liqd 236 Ml) 15 ml PO PRN PRN PRN Reason: Loose Stool Stop: 02/08/20 14:07 Diazepam (Diazepam 2 Mg Tablet) 2 mg PO TID MOHIT Stop: 02/08/20 20:59 Hydroxyzine HCl (Hydroxyzine Hcl 25 Mg Tab) 50 mg PO HSZ PRN PRN Reason: Insomnia Stop: 02/08/20 14:07 Hydroxyzine HCl (Hydroxyzine Hcl 25 Mg Tab) 25 mg PO Q4H PRN PRN Reason: Anxiety Stop: 02/08/20 14:07 Magnesium Hydroxide (Magnesium Hydroxide Susp 30 Ml Udc) 30 ml PO DAILY PRN PRN Reason: Constipation Stop: 02/08/20 14:07 Metformin HCl (Metformin Hcl Er 500 Mg Tabcr) 500 mg PO BIDM MOHIT Stop: 02/08/20 17:44 Sodium Chloride (Sodium Chloride 0.65% Na Soln 45 Ml ([facility])) 1 - 2 sprays NA PRN PRN PRN Reason: Nasal Dryness/Congestion Stop: 02/08/20 14:07 Venlafaxine HCl (Venlafaxine Hcl Xr 37.5 Mg Capxr) 37.5 mg PO QAM MOHIT Stop: 02/09/20 08:59
[2020-01-09] MEDS: metFORMIN HCL ER 500 MG TABCR PO SCH (17:38)
[2020-01-09] MEDS: diazePAM 2 MG TABLET PO SCH (20:54)
[2020-01-09] MEDS: CEFDINIR 300 MG CAP PO SCH (20:54)
[2020-01-10] MEDS: CEFDINIR 300 MG CAP PO SCH ×2 (06:16→18:21)
[2020-01-10 08:39] LABS: Glucose Fasting 120 mg/dl (70-99)
[2020-01-10 08:45] LABS: Chol HDL Ratio 4; Cholesterol 222 mg/dl (0-200); HDL Cholesterol 59 mg/dl; LDL Cholesterol Calculated 129 mg/dl; Triglycerides 170 mg/dl (0-150); VLDL Cholesterol 34 mg/dl
[2020-01-10] MEDS: metFORMIN HCL ER 500 MG TABCR PO SCH ×2 (09:12→17:33)
[2020-01-10] MEDS: VENLAFAXINE HCL XR 37.5 MG CAPXR PO SCH (09:12)
[2020-01-10] MEDS: diazePAM 2 MG TABLET PO SCH ×3 (09:12→20:52)
--- NOTE | 2020-01-10 11:01 | Psychiatric Progress Note ---
Date of Service January 10, 2020 Impression / Recommendations Impression This 64-year-old woman reportedly had no premorbid psychiatric history, and is recently as last year was described as being high functioning, "in charge," and happy. 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 She was hospitalized in October at the [facility], and was discharged for outpatient treatment with a psychiatrist, but has not followed through recently. Her symptoms of depression reportedly include depressed mood, and although the patient says "I cannot cry," she cried during the assessment today. She also notes that she has initial, intermittent and terminal insomnia. Further, the patient reports difficulty concentrating, ambivalence, apathy, anhedonia, anergia, irritable mood, and fretful ruminations and severe anxious distress. The patient says that her anxious distress includes feelings that something terrible is about to happen, that, for example, something might happen to her children and she will not be in a position to help them, and she feels extremely restless and unable to sit still for more than a matter of a few minutes. Her concentration has become so poor that she cannot stand to watch television or read. About a month ago, the patient stopped all of her medications, including her somatic medications as well as her psychiatric medications. She has a history of type 2 diabetes, hypertension, hyperlipidemia, and asthma, but notes that taking her medications for these conditions makes her "more anxious" and she worries about the negative effects they may have on her long-term health. Also, she has stopped all psychiatric medications which, most recently had been aripiprazole and nortriptyline. She has a tendency to catastrophize and make sleeping statements such as "nothing helps. Nothing ever well," but she also acknowledges that she finally did get some relief earlier today when she was given lorazepam 1 mg in the emergency room. She notes that the anxiety abated, but the improvement did not last and was rekindled when she learned that the recommendation was for her to be admitted to the psychiatric unit. It is not clear to what degree the patient has not been sleeping, but she may be experiencing akathisia associated with sleep deprivation. More likely, the patient is experiencing severe generalized anxiety and is simply overwhelmed by her fretful negative thoughts. Some of the patient's fears of border on the psychotic. For example, she tells me that she is constantly afraid that something "terrible" may happen to 1 of her children or 1 of her grandchildren and that she will not be in a position to rescue them." When asked what she is afraid could happen, she said "anything. This is not a safe world." Given the fact that the patient has reported that she has responded to benzodiazepines in the past, I have talked to her about the temporary use of a relatively long- acting benzodiazepine such as diazepam. Have also talked to her about various psychiatric medications that may help with both her depression and anxiety, such as venlafaxine or Lexapro. The patient tells us that she is able to trust us, but is deeply afraid that she will be turned into a "zombie" by which she means that she will be asleep or confined to a chair. 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 The patient states, "we did everything we could to raise them right. In a way I feel responsible for what happened." (Collateral information from the patient's in this regard will be important.) The biggest concern is the fact that the patient not only has not been taking her medicine, but has been eating poorly and is not sleeping or otherwise caring for her own physical needs (according to her ). In this case, the patient's depression and anxiety have rendered her gravely disabled and inpatient psychiatric hospitalization is currently in the least intensive, least restrictive level of care consistent with the patient's clinical needs and safety. Because the patient is very reluctant to take medications, we were withholding her antihypertensive medication because her blood pressure is not currently elevated and her oral intake has been poor. We will continue to monitor her blood pressure. We also are not ordering her statin because of the patient's current anxieties about taking medication and we feel that this is a medication that may be omitted safely, temporarily, until the patient's psychiatric condition improves. 01/09--reviewed (1) Severe depression: 01/08 -The patient has been admitted to the inpatient psychiatric service at [facility], a locked behavioral health unit. She has been referred for individual, group, activity and family therapy. She is also being closely monitored. -Begin venlafaxine ER 37.5 mg twice a day. 01/09-reviewed, Effexor XR appears to have been ordered for qam, she is currently refusing increase. 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 Zamora. (2) Severe anxiety: 01/08 -The patient has been given a medically necessary private room because of her extreme restlessness and need to pace. -Patient has been offered a trial of diazepam 5 mg by mouth. The context is that the patient's report that lorazepam 1 mg by mouth providers earlier in the day was helpful to her, but the benefit was not sustained. Accordingly, we will try diazepam because it is longer acting. -As tolerated, the patient will be given diazepam 2 mg 3 times daily as a standing dose medication. -Hydroxyzine is available as an as needed medication. She will also be eligible to receive hydroxyzine 50 mg at bedtime for sleep, and her third dose of diazepam 2 mg will be given near to the hours of sleep, and may serve as a soporific. 01/09--Valium trial as per Dr. Zamora, monitor gait given age and fall risk. (3) UTI (urinary tract infection): 01/08 -Although the patient does not complain of any urinary tract infection symptoms, there were 4+ bacteria in her urine sample, and it was recommended in the emergency department that she be treated with an antibiotic empirically. -We will continue to monitor for symptoms of urinary tract infection 01/09--reviewed. pending. Inventory Assets Strengths: Positive premorbid history. Strong supportive marriage. Intelligent. Needs: Improved mood. Risk Factors Assessment Male: No : Yes Do You Have Access To A Gun?: No Health Problems: Yes Mental Health Diagnoses: Yes Substance Use Disorders: No Previous Attempt: No Family History of Suicide: No Previous Psychiatric Hospitalization: Yes Hopelessness: Yes Smoker: No Protective Factors Assessment Gnosticism Beliefs: Yes : Yes Responsible for Young Children: No Employed: No Stable Relationships: Yes Supportive Family: Yes Good Rapport with Provider: No Absence of Any Risk Factors Above: No Interval History Chief Complaint "I feel confused.". Review of Systems Sleep Information Total Hours of Sleep: 8 Meal Information Percent Meal Consumed - Breakfast: 40 Percent Meal Consumed - Dinner: 75 Subjective Subjective Patient was seen & assessed and interval progress reviewed with nursing and social work. She was restless yesterday and was lying in bed this am but started pacing around the room when I attempted to interact. She is not able to elaborate on her wants/needs, almost to the level of though blocking. She is upset with regards to medication and was irritable in discussing them, "I don't want them, I want out of here". Reviewed her rights and rationale for current meds as prescribed by Dr. Zamora and she is agreeable to ongoing treatment following discussion of 72 hr notice. She is not agreeing to any increase in Effexor XR at this time. She denies medication side effects. Gait improved when able to wear pants rather than oversized scrubs. Physical Exam Psychiatric Orientation: alert Apperance: + disheveled Eye Contact: + poor eye contact pacing non sponatneous Affect: + depressed affect Mood: + anxious mood and + irritable mood Thought Process: + thought blocking Thought Content: no delusions Suicidal Thoughts: denies suicidal thoughts Homicidal Thoughts: denies homicidal thoughts Hallucinations: no auditory hallucinations and no visual hallucinations Cognition: language grossly intact; + attention not intact Estimated Intelligence: consistent with education level Insight: + poor insight Judgement: + poor judgement Vital Signs (Past 24 Hours) Last Vital Signs Temp 36.6 C 01/10/20 06:19 Pulse 76 01/10/20 06:19 Resp 18 01/10/20 06:19 BP 121/84 01/10/20 06:19 Pulse Ox 98 01/09/20 16:30 Results & Data ([facility]) Laboratory Results Laboratory Results - last 24 hr 01/09/20 01/09/20 01/09/20 09:57 10:48 10:48 Fasting Glucose Total Bilirubin 0.7 AST 17 ALT 21 Alkaline Phosphatase 85 Total Protein 6.7 Globulin 3.3 Albumin/Globulin Ratio 1.0 Triglycerides Cholesterol LDL Cholesterol, Calc VLDL Cholesterol, Calc HDL Cholesterol Cholesterol/HDL Ratio TSH 0.522 Urine Color Dark Yellow Urine Appearance Cloudy A Urine pH 5.5 Ur Specific [place] 1.021 Urine Protein Negative Urine Glucose (UA) Negative Urine Ketones Negative Urine Blood Negative Urine Nitrite Negative Urine Bilirubin Negative Urine Urobilinogen Negative Ur Leukocyte Esterase 2+ H Urine WBC (Auto) >30 H Urine RBC (Auto) 5-10 H U Hyaline Cast (Auto) 10-30 H U Epithel Cells (Auto) >30 H Urine Bacteria (Auto) 4+ H Urine Crystals Not Reportable Urine Opiates Screen Cancelled Ur Methadone, Qual Cancelled Urine Barbiturates Cancelled Ur Phencyclidine (PCP) Cancelled U Amphetamin/Meth Scrn Cancelled MDMA (Ecstasy) Screen Cancelled U Benzodiazepines Scrn Cancelled Ur Cocaine Metabolite Cancelled U Marijuana (THC) Screen Cancelled COVID-19 Eval Order SARS-CoV-2, RNA, NAAT 01/09/20 01/09/20 01/09/20 12:05 12:16 12:16 Fasting Glucose Total Bilirubin AST ALT Alkaline Phosphatase Total Protein Globulin Albumin/Globulin Ratio Triglycerides Cholesterol LDL Cholesterol, Calc VLDL Cholesterol, Calc HDL Cholesterol Cholesterol/HDL Ratio TSH Urine Color Urine Appearance Urine pH Ur Specific [place] Urine Protein Urine Glucose (UA) Urine Ketones Urine Blood Urine Nitrite Urine Bilirubin Urine Urobilinogen Ur Leukocyte Esterase Urine WBC (Auto) Urine RBC (Auto) U Hyaline Cast (Auto) U Epithel Cells (Auto) Urine Bacteria (Auto) Urine Crystals Urine Opiates Screen Neg Ur Methadone, Qual Neg Urine Barbiturates Neg Ur Phencyclidine (PCP) Neg U Amphetamin/Meth Scrn Neg MDMA (Ecstasy) Screen Neg U Benzodiazepines Scrn Neg Ur Cocaine Metabolite Neg U Marijuana (THC) Screen Neg COVID-19 Eval Order Covid19 IDNow [facility] SARS-CoV-2, RNA, NAAT NEGATIVE 01/10/20 08:12 Fasting Glucose 120 H Total Bilirubin AST ALT Alkaline Phosphatase Total Protein Globulin Albumin/Globulin Ratio Triglycerides 170 H Cholesterol 222 H LDL Cholesterol, Calc 129 VLDL Cholesterol, Calc 34 HDL Cholesterol 59 Cholesterol/HDL Ratio 4 TSH Urine Color Urine Appearance Urine pH Ur Specific [place] Urine Protein Urine Glucose (UA) Urine Ketones Urine Blood Urine Nitrite Urine Bilirubin Urine Urobilinogen Ur Leukocyte Esterase Urine WBC (Auto) Urine RBC (Auto) U Hyaline Cast (Auto) U Epithel Cells (Auto) Urine Bacteria (Auto) Urine Crystals Urine Opiates Screen Ur Methadone, Qual Urine Barbiturates Ur Phencyclidine (PCP) U Amphetamin/Meth Scrn MDMA (Ecstasy) Screen U Benzodiazepines Scrn Ur Cocaine Metabolite U Marijuana (THC) Screen COVID-19 Eval Order SARS-CoV-2, RNA, NAAT Current Inpatient Medications Current Inpatient Medications: Current Inpatient Medications Acetaminophen (Acetaminophen 325 Mg Tab) 650 mg PO Q4H PRN PRN Reason: Headache or Minor Fever Stop: 02/08/20 14:07 Al Hydrox/Mg Hydrox/Simethicone (Aluminum/Magnesium Susp 30 Ml Udc) 30 ml PO Q4H PRN PRN Reason: GI Upset Stop: 02/08/20 14:07 Bismuth Subsalicylate (Bismuth Subsalicylate Liqd 236 Ml) 15 ml PO PRN PRN PRN Reason: Loose Stool Stop: 02/08/20 14:07 Cefdinir (Cefdinir 300 Mg Cap) 300 mg PO Q12H MOHIT Stop: 01/16/20 18:29 Last Admin: 01/10/20 06:16 Dose: 300 mg Documented by: Diazepam (Diazepam 2 Mg Tablet) 2 mg PO TID MOHIT Stop: 02/08/20 20:59 Last Admin: 01/10/20 09:12 Dose: 2 mg Documented by: Hydroxyzine HCl (Hydroxyzine Hcl 25 Mg Tab) 50 mg PO HSZ PRN PRN Reason: Insomnia Stop: 02/08/20 14:07 Hydroxyzine HCl (Hydroxyzine Hcl 25 Mg Tab) 25 mg PO Q4H PRN PRN Reason: Anxiety Stop: 02/08/20 14:07 Magnesium Hydroxide (Magnesium Hydroxide Susp 30 Ml Udc) 30 ml PO DAILY PRN PRN Reason: Constipation Stop: 02/08/20 14:07 Metformin HCl (Metformin Hcl Er 500 Mg Tabcr) 500 mg PO BIDM MOHIT Stop: 02/08/20 17:44 Last Admin: 01/10/20 09:12 Dose: 500 mg Documented by: Sodium Chloride (Sodium Chloride 0.65% Na Soln 45 Ml ([place])) 1 - 2 sprays NA PRN PRN PRN Reason: Nasal Dryness/Congestion Stop: 02/08/20 14:07 Venlafaxine HCl (Venlafaxine Hcl Xr 37.5 Mg Capxr) 37.5 mg PO QAM MOHIT Stop: 02/09/20 08:59 Last Admin: 01/10/20 09:12 Dose: 37.5 mg Documented by: Mental Health & Subst Abuse Tx Therapist Name of Therapist: Ric [employer] Operator Name of Investigations Chief: None Post Discharge Appointments Primary Care Physician Name Of Family Doctor: Dr. Mark Kellogg Primary Care Contact Information Discharge Discharge Address: [address] [place] [address] (1) UTI (urinary tract infection) Hematuria presence: without hematuria Urinary tract infection type: site unspecified Qualified Code(s): N39.0 - Urinary tract infection, site not specified
[2020-01-11] MEDS: CEFDINIR 300 MG CAP PO SCH ×2 (06:16→17:38)
[2020-01-11] MEDS: diazePAM 2 MG TABLET PO SCH (08:55)
[2020-01-11] MEDS: metFORMIN HCL ER 500 MG TABCR PO SCH ×2 (08:55→17:38)
[2020-01-11] MEDS: VENLAFAXINE HCL XR 37.5 MG CAPXR PO SCH (08:55)
--- NOTE | 2020-01-11 12:21 | Psychiatric Progress Note ---
Date of Service January 11, 2020 Impression / Recommendations Impression This 64-year-old woman reportedly had no premorbid psychiatric history, and is recently as last year was described as being high functioning, "in charge," and happy. 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 She was hospitalized in October at the [facility], and was discharged for outpatient treatment with a psychiatrist, but has not followed through recently. Her symptoms of depression reportedly include depressed mood, and although the patient says "I cannot cry," she cried during the assessment today. She also notes that she has initial, intermittent and terminal insomnia. Further, the patient reports difficulty concentrating, ambivalence, apathy, anhedonia, anergia, irritable mood, and fretful ruminations and severe anxious distress. The patient says that her anxious distress includes feelings that something terrible is about to happen, that, for example, something might happen to her children and she will not be in a position to help them, and she feels extremely restless and unable to sit still for more than a matter of a few minutes. Her concentration has become so poor that she cannot stand to watch television or read. About a month ago, the patient stopped all of her medications, including her somatic medications as well as her psychiatric medications. She has a history of type 2 diabetes, hypertension, hyperlipidemia, and asthma, but notes that taking her medications for these conditions makes her "more anxious" and she worries about the negative effects they may have on her long-term health. Also, she has stopped all psychiatric medications which, most recently had been aripiprazole and nortriptyline. She has a tendency to catastrophize and make sleeping statements such as "nothing helps. Nothing ever well," but she also acknowledges that she finally did get some relief earlier today when she was given lorazepam 1 mg in the emergency room. She notes that the anxiety abated, but the improvement did not last and was rekindled when she learned that the recommendation was for her to be admitted to the psychiatric unit. It is not clear to what degree the patient has not been sleeping, but she may be experiencing akathisia associated with sleep deprivation. More likely, the patient is experiencing severe generalized anxiety and is simply overwhelmed by her fretful negative thoughts. Some of the patient's fears of border on the psychotic. For example, she tells me that she is constantly afraid that something "terrible" may happen to 1 of her children or 1 of her grandchildren and that she will not be in a position to rescue them." When asked what she is afraid could happen, she said "anything. This is not a safe world." Given the fact that the patient has reported that she has responded to benzodiazepines in the past, I have talked to her about the temporary use of a relatively long- acting benzodiazepine such as diazepam. Have also talked to her about various psychiatric medications that may help with both her depression and anxiety, such as venlafaxine or Lexapro. The patient tells us that she is able to trust us, but is deeply afraid that she will be turned into a "zombie" by which she means that she will be asleep or confined to a chair. 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 The patient states, "we did everything we could to raise them right. In a way I feel responsible for what happened." (Collateral information from the patient's in this regard will be important.) The biggest concern is the fact that the patient not only has not been taking her medicine, but has been eating poorly and is not sleeping or otherwise caring for her own physical needs (according to her ). In this case, the patient's depression and anxiety have rendered her gravely disabled and inpatient psychiatric hospitalization is currently in the least intensive, least restrictive level of care consistent with the patient's clinical needs and safety. Because the patient is very reluctant to take medications, we were withholding her antihypertensive medication because her blood pressure is not currently elevated and her oral intake has been poor. We will continue to monitor her blood pressure. We also are not ordering her statin because of the patient's current anxieties about taking medication and we feel that this is a medication that may be omitted safely, temporarily, until the patient's psychiatric condition improves. 01/09--reviewed 01/10--improved but seems to have some sedation and confusion either from Valium or resolving delirium component, doesn't appear to be progressing to catatonia. Need to establish baseline with family, ?head imaging. (1) Severe depression: 01/08 -The patient has been admitted to the inpatient psychiatric service at [facility], a locked behavioral health unit. She has been referred for individual, group, activity and family therapy. She is also being closely monitored. -Begin venlafaxine ER 37.5 mg twice a day. 01/09-reviewed, Effexor XR appears to have been ordered for qam, she is currently refusing increase. 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 Zamora. 01/10--agreed to increase to 75 mg po qam. (2) Severe anxiety: 01/08 -The patient has been given a medically necessary private room because of her extreme restlessness and need to pace. -Patient has been offered a trial of diazepam 5 mg by mouth. The context is that the patient's report that lorazepam 1 mg by mouth providers earlier in the day was helpful to her, but the benefit was not sustained. Accordingly, we will try diazepam because it is longer acting. -As tolerated, the patient will be given diazepam 2 mg 3 times daily as a standing dose medication. -Hydroxyzine is available as an as needed medication. She will also be eligible to receive hydroxyzine 50 mg at bedtime for sleep, and her third dose of diazepam 2 mg will be given near to the hours of sleep, and may serve as a soporific. 01/09--Valium trial as per Dr. Zamora, monitor gait given age and fall risk. 01/10--patient is requesting something less sedating, will replace with Ativan 1 mg po BID starting tonight and as valium clears. (3) UTI (urinary tract infection): 01/08 -Although the patient does not complain of any urinary tract infection symptoms, there were 4+ bacteria in her urine sample, and it was recommended in the emergency department that she be treated with an antibiotic empirically. -We will continue to monitor for symptoms of urinary tract infection 01/09--reviewed. UC pending. 01/10--corynbacter, no sensitivities, tolerating antibiotic, no urinary symptoms. Inventory Assets Strengths: Positive premorbid history. Strong supportive marriage. Intelligent. Needs: Improved mood. Risk Factors Assessment Male: No : Yes Do You Have Access To A Gun?: No Health Problems: Yes Mental Health Diagnoses: Yes Substance Use Disorders: No Previous Attempt: No Family History of Suicide: No Previous Psychiatric Hospitalization: Yes Hopelessness: Yes Smoker: No Protective Factors Assessment Gnosticist Beliefs: Yes : Yes Responsible for Young Children: No Employed: No Stable Relationships: Yes Supportive Family: Yes Good Rapport with Provider: No Absence of Any Risk Factors Above: No Interval History Chief Complaint "What you are saying is just jumbled in my head". Review of Systems Sleep Information Total Hours of Sleep: 8 Meal Information Percent Meal Consumed - Breakfast: 50 Percent Meal Consumed - Lunch: 25 Percent Meal Consumed - Dinner: 75 Nutrition Comment: pt. has poor appetite; not able to identify any foods that sound appealing at this time. Subjective Subjective Patient was seen & assessed and interval progress reviewed with nursing and social work. Irritable yesterday with poor focus. She ate standing up and only 25%, spent day either walking the hallway or sleeping in room. She appeared calmer this am, steadier gait, but now c/o tiredness and ongoing confusion but can't elaborate. Less paranoid in appearance. Did get up to follow me out the door to find group. Able to sit through group this am. Hopes she can be dis charged soon but unable to verbalize plan. Physical Exam Psychiatric Orientation: alert, oriented to person, oriented to place and + guarded Apperance: appropriately groomed Eye Contact: + fair eye contact Motor Behavior: no abnormal motor movements; n akathisia speech is non spontaneous, answers briefly but appropriately Affect: + depressed affect Mood: + anxious mood Thought Process: + concrete thought process Thought Content: no delusions Suicidal Thoughts: denies suicidal thoughts Homicidal Thoughts: denies homicidal thoughts Hallucinations: no auditory hallucinations and no visual hallucinations Cognition: language grossly intact; + attention not intact Insight: + limited insight Judgement: + limited judgement Vital Signs (Past 24 Hours) Last Vital Signs Temp 36.6 C 01/11/20 06:00 Pulse 94 H 01/11/20 06:00 Resp 18 01/11/20 06:00 BP 148/94 H 01/11/20 06:18 Pulse Ox 98 01/09/20 16:30 Results & Data ([facility]) Laboratory Results Laboratory Results - last 24 hr 01/11/20 08:49 POC Glucose 121 H Current Inpatient Medications Current Inpatient Medications: Current Inpatient Medications Acetaminophen (Acetaminophen 325 Mg Tab) 650 mg PO Q4H PRN PRN Reason: Headache or Minor Fever Stop: 02/08/20 14:07 Al Hydrox/Mg Hydrox/Simethicone (Aluminum/Magnesium Susp 30 Ml Udc) 30 ml PO Q4H PRN PRN Reason: GI Upset Stop: 02/08/20 14:07 Bismuth Subsalicylate (Bismuth Subsalicylate Liqd 236 Ml) 15 ml PO PRN PRN PRN Reason: Loose Stool Stop: 02/08/20 14:07 Cefdinir (Cefdinir 300 Mg Cap) 300 mg PO Q12H MOHIT Stop: 01/16/20 18:29 Last Admin: 01/11/20 06:16 Dose: 300 mg Documented by: Hydroxyzine HCl (Hydroxyzine Hcl 25 Mg Tab) 50 mg PO HSZ PRN PRN Reason: Insomnia Stop: 02/08/20 14:07 Hydroxyzine HCl (Hydroxyzine Hcl 25 Mg Tab) 25 mg PO Q4H PRN PRN Reason: Anxiety Stop: 02/08/20 14:07 Lorazepam (Lorazepam 1 Mg Tab) 1 mg PO BID MOHIT Stop: 02/10/20 20:59 Magnesium Hydroxide (Magnesium Hydroxide Susp 30 Ml Udc) 30 ml PO DAILY PRN PRN Reason: Constipation Stop: 02/08/20 14:07 Metformin HCl (Metformin Hcl Er 500 Mg Tabcr) 500 mg PO BIDM MOHIT Stop: 02/08/20 17:44 Last Admin: 01/11/20 08:55 Dose: 500 mg Documented by: Sodium Chloride (Sodium Chloride 0.65% Na Soln 45 Ml (Inger)) 1 - 2 sprays NA PRN PRN PRN Reason: Nasal Dryness/Congestion Stop: 02/08/20 14:07 Venlafaxine HCl (Venlafaxine Hcl Xr 75 Mg Capxr) 75 mg PO QAM MOHIT Stop: 02/11/20 08:59 Mental Health & Subst Abuse Tx Psychiatrist Name of Psychiatrist: [facility] - Dr. Crum Psychiatrist's Psychiatric Appointment Comment: [address], [address], [place] [address] Therapist Name of Therapist: [facility] Therapist's Therapy Appointment Comment: [address] [place] [address] Statue Maker Name of Statue Maker: . Post Discharge Appointments Primary Care Physician Name Of Family Doctor: [facility] - Dr. Mark Kellogg Primary Care Provider Appointment Comment: [address], [address], [place] [address] Contact Information Discharge Discharge Address: [address] [place] [address] (1) UTI (urinary tract infection) Hematuria presence: without hematuria Urinary tract infection type: site unspecified Qualified Code(s): N39.0 - Urinary tract infection, site not specified
[2020-01-11] MEDS: LORazepam 1 MG TAB PO SCH (20:44)
[2020-01-12] MEDS: CEFDINIR 300 MG CAP PO SCH ×2 (06:24→18:18)
[2020-01-12] MEDS: LORazepam 1 MG TAB PO SCH ×2 (09:09→20:02)
[2020-01-12] MEDS: metFORMIN HCL ER 500 MG TABCR PO SCH ×2 (09:09→17:28)
[2020-01-12] MEDS: VENLAFAXINE HCL XR 75 MG CAPXR PO SCH (09:09)
--- NOTE | 2020-01-12 09:13 | Psychiatric Progress Note ---
Date of Service January 12, 2020 Impression / Recommendations Impression 64-year-old female admitted medically on 01/09/2020 after presenting to the ED with her due to concern for worsening depression, intractable anxiety, and inability to adequately care for self. 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 It is also reported that some recent stressors have been related to discord between the family, involving her 3 adult children. Pt was admitted to the [facility][1] in 10/2019 and was discharged to outpatient treatment, but is clearly again demonstrating an inability to care for self. Pt has been demonstrating concerns at home which include: difficult with concentration, anxious ruminations, delayed responses to questions, ambivalence with decision-making, and increased irritability. It is reported that patient had been very high functioning prior to the past year, and that this behavior is very out of character. Previous psychiatric history has not been identified. Recently, she has had a reported 35lb weight loss, has not been able to care for herself at home, is not attending to ADLs, and continuous pacing. On admission, patient was started on diazepam TID to target significant anxiety. She was also started on venlafaxine to target depressive symptoms. Pt has demonstrated less pacing behavior, but continues to have delayed responses and reports ongoing anxiety preventing her from actively participating in group programming. Pt did admit that she felt overly sedated and diazepam was stopped in favor of a trial of lorazepam, to be given BID. Venlafaxine is also being titrated as tolerated. Pt will require a family meeting with her when she is able to participate appropriately. In the interim, inpatient psychiatric treatment is medically necessary as patient is still not attending to ADLs and is not able to tolerate the stress associated with community re-entry at this time. (1) Severe depression: 01/08 -The patient has been admitted to the inpatient psychiatric service at [facility] [place] [facility]. She has been referred for individual, group, activity and family therapy. She is also being closely monitored. -Begin venlafaxine ER 37.5 mg twice a day. 01/09-reviewed, Effexor XR appears to have been ordered for qam, she is currently refusing increase. 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 Zamora. 01/10--improved but seems to have some sedation and confusion either from Valium or resolving delirium component, doesn't appear to be progressing to catatonia. Need to establish baseline with family, ?head imaging. - agreed to increase to 75 mg po qam. 01/11 - Continue current medication regimen - venlafaxine 75mg increased this morning, and lorazepam 1mg BID. - Pt remains withdrawn and anxious, has not been attending to ADLs and requires significant encouragement to attend group programming. She has not showered, is still eating poorly, and has been dressing somewhat bizarrely (still wearing paper scrub shirt, but over other clothing - two layers of socks, etc). - Will gather collateral information and update sister, who has provided written collateral - patient has signed BRISA - Continue to update , patient will require family meeting when she is better able to participate - Continue MNPR for now (2) Severe anxiety: 01/08 -The patient has been given a medically necessary private room because of her extreme restlessness and need to pace. -Patient has been offered a trial of diazepam 5 mg by mouth. The context is that the patient's report that lorazepam 1 mg by mouth providers earlier in the day was helpful to her, but the benefit was not sustained. Accordingly, we will try diazepam because it is longer acting. -As tolerated, the patient will be given diazepam 2 mg 3 times daily as a standing dose medication. -Hydroxyzine is available as an as needed medication. She will also be eligible to receive hydroxyzine 50 mg at bedtime for sleep, and her third dose of diazepam 2 mg will be given near to the hours of sleep, and may serve as a soporific. 01/09--Valium trial as per Dr. Zamora, monitor gait given age and fall risk. 01/10--patient is requesting something less sedating, will replace with Ativan 1 mg po BID starting tonight and as valium clears. 01/11 - Continue as above - patient continues to be very anxious, delayed responses to questions. (3) UTI (urinary tract infection): 01/08 -Although the patient does not complain of any urinary tract infection symptoms, there were 4+ bacteria in her urine sample, and it was recommended in the emergency department that she be treated with an antibiotic empirically. -We will continue to monitor for symptoms of urinary tract infection 01/09--reviewed. UC pending. 01/10--corynbacter, no sensitivities, tolerating antibiotic, no urinary symptoms. Inventory Assets Strengths: Positive premorbid history. Strong supportive marriage. Intelligent. Needs: Improved mood. Risk Factors Assessment Male: No : Yes Do You Have Access To A Gun?: No Health Problems: Yes Mental Health Diagnoses: Yes Substance Use Disorders: No Previous Attempt: No Family History of Suicide: No Previous Psychiatric Hospitalization: Yes Hopelessness: Yes Smoker: No Protective Factors Assessment Evangelical Beliefs: Yes : Yes Responsible for Young Children: No Employed: No Stable Relationships: Yes Supportive Family: Yes Good Rapport with Provider: No Absence of Any Risk Factors Above: No Interval History Identifying Information DELMI RAMIREZ is a 64-year-old F who currently lives in the [place] area with her . Has a history of anxiety and depression, and was admitted on 01/09/20 14:08 on a 201 voluntary commitment for intractable anxiety, inability to adequately care for her own physical needs, and severe depression. Chief Complaint "Not so well." Review of Systems Notes Constitutional: denied Cardiovascular: denied Respiratory: denied Gastrointestinal: denied Neurological: denied Psychiatric: denies symptoms other than stated above Total of at least 10 systems reviewed, pertinent positives as above and in HPI. Sleep Information Total Hours of Sleep: 8 Meal Information Percent Meal Consumed - Breakfast: 50 Percent Meal Consumed - Lunch: 50 Percent Meal Consumed - Dinner: 50 Nutrition Comment: pt. has poor appetite; not able to identify any foods that s ound appealing at this time. Subjective Subjective Patient was seen & assessed and interval progress reviewed with treatment team. Staff report the patient has been present at a few groups, but participation is limited. She often has required for conversations to be repeated, as it seems concentration continues to be poor and she requires ongoing explanations when discussing treatment. Pt did rate her mood a 5/10 and "overwhelmed" last evening. Staff states she has been pacing a bit less, but still appears very anxious. Received written letter from patient's sister regarding patient's symptoms and hopes that head imaging could be completed to rule out organic causes - will plan to follow-up with sister via phone. Pt was seen today to assess progress since admission. Pt states she is "not so well" today. Pt inquires "how do I go home?" even after explaining that she feels she is "getting worse" since her initial day of admission. Pt is unable to provide information about what she feels may be leading to the ongoing deterioration, even in the supportive inpatient setting. Most of our conversation was spent re iterating our usual treatment plan, specifically encouraging patient to attend groups on a regular basis - even if feeling unable to fully participate at this time. Pt offers no response when this explanation is provided. Pt does admit to poor concentration, and states her thoughts are "somewhere between no thoughts at all and just wanting to get out of here." Pt is unable to clarify if this means simply thoughts of discharge or if she implies thoughts to escape the unit. She reports feeling anxious and "restless, like I can't sit still", though her presentation is very withdrawn and she is not fidgeting, but rather curled up in bed under the covers. Pt did not answer several of this provider's questions, but instead demonstrated prolonged starting. She was not able to offer any thoughts at this time regarding the switch from diazepam to lorazepam in order to reduce daytime sedation. She also did not respond to questions about perceived side effects related to venlafaxine. She admits she has not showered or done laundry since her admission. Pt was encouraged to attend groups consistently today, even if she feels she may not be able to fully participate just yet. Pt denied other needs at this time. She was informed that this provider would be reaching out to her sister (for whom pt has signed BRISA) to provide updates. Physical Exam Psychiatric Orientation: alert and + guarded (participation in interview is limited, likely by level of anxiety) Apperance: + disheveled; + inappropriately dressed and + inappropriately groomed Pt is dressed somewhat bizarrely, as she is still wearing her paper scrub top but over another set of clothing. She is wearing two pairs of socks. Pt has likely not showered since admission and does appear unkempt, though not yet malodorous. Eye Contact: + fair eye contact (prolonged staring) Motor Behavior: no abnormal motor movements (observed while laying in bed ) Speech: + abnormal rate/rhythm/volume of speech (very brief responses to questions, quiet volume) Responses to questions are generally delayed, if given at all - as patient often stares at this provider without ever providing a answer to questions asked Affect: + depressed affect, + anxious affect and + constricted affect Mood: + anxious mood Thought Process: + perseveration (focused on "getting out") and + concrete thought process Thought Content: + hopelessness Suicidal Thoughts: denies suicidal thoughts Cognition: language grossly intact; + attention not intact Insight: + impaired insight Judgement: + impaired judgement Vital Signs (Past 24 Hours) Last Vital Signs Temp 36.7 C 01/12/20 06:31 Pulse 86 01/12/20 06:32 Resp 16 01/12/20 06:31 BP 132/86 01/12/20 06:32 Pulse Ox 98 01/09/20 16:30 Results & Data ([facility]) Laboratory Results Laboratory Results - last 24 hr 01/12/20 08:41 POC Glucose 109 H Current Inpatient Medications Current Inpatient Medications: Current Inpatient Medications Acetaminophen (Acetaminophen 325 Mg Tab) 650 mg PO Q4H PRN PRN Reason: Headache or Minor Fever Stop: 02/08/20 14:07 Al Hydrox/Mg Hydrox/Simethicone (Aluminum/Magnesium Susp 30 Ml Udc) 30 ml PO Q4H PRN PRN Reason: GI Upset Stop: 02/08/20 14:07 Bismuth Subsalicylate (Bismuth Subsalicylate Liqd 236 Ml) 15 ml PO PRN PRN PRN Reason: Loose Stool Stop: 02/08/20 14:07 Cefdinir (Cefdinir 300 Mg Cap) 300 mg PO Q12H MOHIT Stop: 01/16/20 18:29 Last Admin: 01/12/20 06:24 Dose: 300 mg Documented by: Hydroxyzine HCl (Hydroxyzine Hcl 25 Mg Tab) 50 mg PO HSZ PRN PRN Reason: Insomnia Stop: 02/08/20 14:07 Hydroxyzine HCl (Hydroxyzine Hcl 25 Mg Tab) 25 mg PO Q4H PRN PRN Reason: Anxiety Stop: 02/08/20 14:07 Lorazepam (Lorazepam 1 Mg Tab) 1 mg PO BID MOHIT Stop: 02/10/20 20:59 Last Admin: 01/11/20 20:44 Dose: 1 mg Documented by: Magnesium Hydroxide (Magnesium Hydroxide Susp 30 Ml Udc) 30 ml PO DAILY PRN PRN Reason: Constipation Stop: 02/08/20 14:07 Metformin HCl (Metformin Hcl Er 500 Mg Tabcr) 500 mg PO BIDM MOHIT Stop: 02/08/20 17:44 Last Admin: 01/11/20 17:38 Dose: 500 mg Documented by: Sodium Chloride (Sodium Chloride 0.65% Na Soln 45 Ml ([place])) 1 - 2 sprays NA PRN PRN PRN Reason: Nasal Dryness/Congestion Stop: 02/08/20 14:07 Venlafaxine HCl (Venlafaxine Hcl Xr 75 Mg Capxr) 75 mg PO QAM MOHIT Stop: 02/11/20 08:59 Mental Health & Subst Abuse Tx Psychiatrist Name of Psychiatrist: [facility] - Dr. 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 Post Discharge Appointments Primary Care Physician Name Of Family Doctor: [facility] - Dr. Mark Kellogg Primary Care Provider Appointment Comment: [address], [address], [place] [address] Contact Information Discharge Discharge Address: [address] [place] [address],[place] [address] (1) UTI (urinary tract infection) Hematuria presence: without hematuria Urinary tract infection type: site unspecified Qualified Code(s): N39.0 - Urinary tract infection, site not specified
[2020-01-13] MEDS: CEFDINIR 300 MG CAP PO SCH ×2 (06:21→18:14)
[2020-01-13] MEDS: VENLAFAXINE HCL XR 75 MG CAPXR PO SCH (08:43)
[2020-01-13] MEDS: LORazepam 1 MG TAB PO SCH ×2 (08:43→21:18)
[2020-01-13] MEDS: metFORMIN HCL ER 500 MG TABCR PO SCH ×2 (08:44→17:24)
--- NOTE | 2020-01-13 08:59 | Psychiatric Progress Note ---
Date of Service January 13, 2020 Impression / Recommendations Impression 64-year-old female admitted voluntarily on 01/09/2020 after presenting to the ED with worsening depression,anxiety, and inability to care for herself. 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 She also reported stress related to family discord involving her 3 adult children. Pt was admitted to the [facility] in 10/2019 and was discharged to outpatient treatment, but symptoms worsened to the point that she is unable to care for herself at home, even with supportive family. She has had multiple medication adjustments/trials here. Inpatient psychiatric treatment is medically necessary as patient is still not attending to ADLs, is not eating or bathing, is unable to function and is not able to tolerate the stress associated with community re-entry at this time. (1) Severe depression: 01/08 -The patient has been admitted to the inpatient psychiatric service at [facility], a [facility] behavioral health unit. She has been referred for individual, group, activity and family therapy. She is also being closely monitored. -Begin venlafaxine ER 37.5 mg twice a day. 01/09-reviewed, Effexor XR appears to have been ordered for qam, she is currently refusing increase. 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 Zamora. 01/10--improved but seems to have some sedation and confusion either from Valium or resolving delirium component, doesn't appear to be progressing to catatonia. Need to establish baseline with family, ?head imaging. - agreed to increase to 75 mg po qam. 01/11 - Continue current medication regimen - venlafaxine 75mg increased this morning, and lorazepam 1mg BID. - Pt remains withdrawn and anxious, has not been attending to ADLs and requires significant encouragement to attend group programming. She has not showered, is still eating poorly, and has been dressing somewhat bizarrely (still wearing paper scrub shirt, but over other clothing - two layers of socks, etc). - Will gather collateral information and update sister, who has provided written collateral - patient has signed BRISA - Continue to update , patient will require family meeting when she is better able to participate - Continue MNPR for now 01/12 -Increase venlafaxine ER to 112.5 mg. -Reduce lorazepam to 0.5 mg every morning and 1 mg at bedtime to try to reduce daytime somnolence. Initiate risperidone 1 mg twice daily to target psychotic depression and thought blocking. Fasting labs ordered for tomorrow for monitoring on an atypical antipsychotic, as well as folate acid and vitamin B12 levels as part of her organic work-up for psychosis. Refer to PCP for brain MRI after discharge. -Continue private room due to psychosis, not yet ready to tolerate family meeting with . (2) Severe anxiety: 01/08 -The patient has been given a medically necessary private room because of her extreme restlessness and need to pace. -Patient has been offered a trial of diazepam 5 mg by mouth. The context is that the patient's report that lorazepam 1 mg by mouth providers earlier in the day was helpful to her, but the benefit was not sustained. Accordingly, we will try diazepam because it is longer acting. -As tolerated, the patient will be given diazepam 2 mg 3 times daily as a standing dose medication. -Hydroxyzine is available as an as needed medication. She will also be eligible to receive hydroxyzine 50 mg at bedtime for sleep, and her third dose of diazepam 2 mg will be given near to the hours of sleep, and may serve as a soporific. 01/09--Valium trial as per Dr. Zamora, monitor gait given age and fall risk. 01/10--patient is requesting something less sedating, will replace with Ativan 1 mg po BID starting tonight and as valium clears. 01/11 - Continue as above - patient continues to be very anxious, delayed responses to questions. 01/12 -patient has spent the last 2 days in bed, refusing groups, and reports lethargy and sedation. Will decrease lorazepam as above, and start risperidone. (3) UTI (urinary tract infection): 01/08 -Although the patient does not complain of any urinary tract infection symptoms, there were 4+ bacteria in her urine sample, and it was recommended in the emergency department that she be treated with an antibiotic empirically. -We will continue to monitor for symptoms of urinary tract infection 01/09--reviewed. UC pending. 01/10--corynbacter, no sensitivities, tolerating antibiotic, no urinary symptoms. Inventory Assets Strengths: Positive premorbid history. Strong supportive marriage. Intelligent. Needs: Improved mood. Risk Factors Assessment Male: No : Yes Do You Have Access To A Gun?: No Health Problems: Yes Mental Health Diagnoses: Yes Substance Use Disorders: No Previous Attempt: No Family History of Suicide: No Previous Psychiatric Hospitalization: Yes Hopelessness: Yes Smoker: No Protective Factors Assessment Yarsani Beliefs: Yes : Yes Responsible for Young Children: No Employed: No Stable Relationships: Yes Supportive Family: Yes Good Rapport with Provider: No Absence of Any Risk Factors Above: No Interval History Identifying Information DELMI RAMIREZ is a 64-year-old F who currently lives in the [place] area with her . Has a history of anxiety and depression, and was admitted on 01/09/20 14:08 on a 201 voluntary commitment for intractable anxiety, inability to adequately care for her own physical needs, and severe depression. Chief Complaint "Not real good". Review of Systems Sleep Information Total Hours of Sleep: 9.5 Meal Information Percent Meal Consumed - Breakfast: 10 Percent Meal Consumed - Lunch: 10 Percent Meal Consumed - Dinner: 25 Nutrition Comment: pt. has poor appetite; not able to identify any foods that sound appealing at this time. Subjective Subjective Patient was seen & assessed and interval progress reviewed with nursing and social work. Staff report she stayed in her room in bed all day, refused all groups, and appeared thought blocked, not responding to questions. Her and sister were contacted and provided collateral information, stating she is far from baseline and has been unable to function, is not bathing, not interacting with others. On my assessment, she was seen in her room, where she remains in bed midday, but is easily awakened. She states that mood is "not good," tired and lethargic, "sad." She is unable to state whether the lethargy is a change since hospitalization, at one point stating she was feeling that way at home, but at another point stating it was since starting medication. She states she is spending most of her time sleeping, and is not going to groups because "I don't know what to say." She says she did go to 2 groups yesterday, but is unable to tell me what they were about. She denies suicidal thoughts, but is unable to engage in a plan to be out of bed, completing ADLs, and interacting with others. Appetite is poor, and does not want to eat. She endorses thought blocking, stating she has long pauses prior to answering questions because she is trying to think of what to say, or does not know what to say. She says she has spoken with her family, and understands that her family is very concerned about her. Related medication adjustments being made, and recommendations to see PCP after discharge for brain MRI and any additional medical work-up he deems necessary. She states her main treatment goal is to "go home," but cannot give any input into what will help her be able to function so that she can be discharged. Physical Exam Psychiatric Orientation: alert and cooperative (Partially, often does not answer questions at all, or gives vague answers) Overweight, short meade hair that appears greasy/unwashed, wearing scrub pants and a longsleeved shirt with a paper scrub top over it. Lying in bed in no acute distress. Eye Contact: + fair eye contact At times stares unblinkingly, other times gazes averted to the side. Motor Behavior: no abnormal motor movements Minimal, delayed, monotone Affect: + constricted affect Blunted/flat, "Sad." Thought Process: + thought blocking Suicidal Thoughts: denies suicidal thoughts Homicidal Thoughts: denies homicidal thoughts Hallucinations: no auditory hallucinations and no visual hallucinations Cognition: + recent memory not intact and + attention not intact Insight: + impaired insight Judgement: + impaired judgement Vital Signs (Past 24 Hours) Last Vital Signs Temp 36.3 C L 01/13/20 06:42 Pulse 110 H 01/13/20 06:43 Resp 16 01/13/20 06:42 BP 95/63 L 01/13/20 06:43 Pulse Ox 98 01/09/20 16:30 Results & Data ([facility]) Laboratory Results Laboratory Results - last 24 hr 01/13/20 08:19 POC Glucose 102 H Current Inpatient Medications Current Inpatient Medications: Current Inpatient Medications Acetaminophen (Acetaminophen 325 Mg Tab) 650 mg PO Q4H PRN PRN Reason: Headache or Minor Fever Stop: 02/08/20 14:07 Al Hydrox/Mg Hydrox/Simethicone (Aluminum/Magnesium Susp 30 Ml Udc) 30 ml PO Q4H PRN PRN Reason: GI Upset Stop: 02/08/20 14:07 Bismuth Subsalicylate (Bismuth Subsalicylate Liqd 236 Ml) 15 ml PO PRN PRN PRN Reason: Loose Stool Stop: 02/08/20 14:07 Cefdinir (Cefdinir 300 Mg Cap) 300 mg PO Q12H MOHIT Stop: 01/16/20 18:29 Last Admin: 01/13/20 06:21 Dose: 300 mg Documented by: Hydroxyzine HCl (Hydroxyzine Hcl 25 Mg Tab) 50 mg PO HSZ PRN PRN Reason: Insomnia Stop: 02/08/20 14:07 Hydroxyzine HCl (Hydroxyzine Hcl 25 Mg Tab) 25 mg PO Q4H PRN PRN Reason: Anxiety Stop: 02/08/20 14:07 Lorazepam (Lorazepam 1 Mg Tab) 1 mg PO BID MOHIT Stop: 02/10/20 20:59 Last Admin: 01/13/20 08:43 Dose: 1 mg Documented by: Magnesium Hydroxide (Magnesium Hydroxide Susp 30 Ml Udc) 30 ml PO DAILY PRN PRN Reason: Constipation Stop: 02/08/20 14:07 Metformin HCl (Metformin Hcl Er 500 Mg Tabcr) 500 mg PO BIDM MOHIT Stop: 02/08/20 17:44 Last Admin: 01/13/20 08:44 Dose: 500 mg Documented by: Sodium Chloride (Sodium Chloride 0.65% Na Soln 45 Ml ([place])) 1 - 2 sprays NA PRN PRN PRN Reason: Nasal Dryness/Congestion Stop: 02/08/20 14:07 Venlafaxine HCl (Venlafaxine Hcl Xr 75 Mg Capxr) 75 mg PO QAM MOHIT Stop: 02/11/20 08:59 Last Admin: 01/13/20 08:43 Dose: 75 mg Documented by: Mental Health & Subst Abuse Tx Psychiatrist Name of Psychiatrist: [facility] - Dr. 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 Post Discharge Appointments Primary Care Physician Name Of Family Doctor: [facility] - Dr. Mark Kellogg Primary Care Provider Appointment Comment: [address], [address], [place] [address] Contact Information Discharge Discharge Address: [address] [place] [address] (1) UTI (urinary tract infection) Hematuria presence: without hematuria Urinary tract infection type: site unspecified Qualified Code(s): N39.0 - Urinary tract infection, site not specified
[2020-01-13] MEDS: risperiDONE 0.5 MG TABLET PO SCH ×2 (09:42→21:18)
[2020-01-14] MEDS: CEFDINIR 300 MG CAP PO SCH ×2 (07:37→17:30)
[2020-01-14 08:54] LABS: Glucose Fasting 107 mg/dl (70-99)
--- NOTE | 2020-01-14 09:00 | Psychiatric Progress Note ---
Date of Service January 14, 2020 Impression / Recommendations Impression 64-year-old female admitted voluntarily on 01/09/2020 after presenting to the ED with worsening depression,anxiety, and inability to care for herself. 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 She also reported stress related to family discord involving her 3 adult children. Pt was admitted to the [facility] in 10/2019 and was discharged to outpatient treatment, but symptoms worsened to the point that she is unable to care for herself at home, even with supportive family. She has had multiple medication adjustments/trials here. Inpatient psychiatric treatment is medically necessary as patient is still not attending to ADLs, is not eating or bathing, is unable to function and is not able to tolerate the stress associated with community re-entry at this time. (1) Severe depression: 01/08 -The patient has been admitted to the inpatient psychiatric service at [facility]. She has been referred for individual, group, activity and family therapy. She is also being closely monitored. -Begin venlafaxine ER 37.5 mg twice a day. 01/09-reviewed, Effexor XR appears to have been ordered for qam, she is currently refusing increase. 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 Zamora. 01/10--improved but seems to have some sedation and confusion either from Valium or resolving delirium component, doesn't appear to be progressing to catatonia. Need to establish baseline with family, ?head imaging. - agreed to increase to 75 mg po qam. 01/11 - Continue current medication regimen - venlafaxine 75mg increased this morning, and lorazepam 1mg BID. - Pt remains withdrawn and anxious, has not been attending to ADLs and requires significant encouragement to attend group programming. She has not showered, is still eating poorly, and has been dressing somewhat bizarrely (still wearing paper scrub shirt, but over other clothing - two layers of socks, etc). - Will gather collateral information and update sister, who has provided written collateral - patient has signed BRISA - Continue to update , patient will require family meeting when she is better able to participate - Continue MNPR for now 01/12 -Increase venlafaxine ER to 112.5 mg. -Reduce lorazepam to 0.5 mg every morning and 1 mg at bedtime to try to reduce daytime somnolence. Initiate risperidone 1 mg twice daily to target psychotic depression and thought blocking. Fasting labs ordered for tomorrow for monitoring on an atypical antipsychotic, as well as folate acid and vitamin B12 levels as part of her organic work-up for psychosis. Refer to PCP for brain MRI after discharge. -Continue private room due to psychosis, not yet ready to tolerate family meeting with . 01/13 -Continue venlafaxine ER 112.5 mg and risperidone 0.5 mg twice daily. If she can tolerate risperidone better without significant fatigue, then risperidone will be titrated further up to 1 mg twice a day. -Fasting lab results reviewed with the patient. Fasting glucose elevated at 107, triglycerides at 157 and cholesterol at 241 but all other values are WNL. Folate and vitamin B12 level are still pending. -Continue MNPR. (2) Severe anxiety: 01/08 -The patient has been given a medically necessary private room because of her extreme restlessness and need to pace. -Patient has been offered a trial of diazepam 5 mg by mouth. The context is that the patient's report that lorazepam 1 mg by mouth providers earlier in the day was helpful to her, but the benefit was not sustained. Accordingly, we will try diazepam because it is longer acting. -As tolerated, the patient will be given diazepam 2 mg 3 times daily as a standing dose medication. -Hydroxyzine is available as an as needed medication. She will also be eligible to receive hydroxyzine 50 mg at bedtime for sleep, and her third dose of diazepam 2 mg will be given near to the hours of sleep, and may serve as a soporific. 01/09--Valium trial as per Dr. Zamora, monitor gait given age and fall risk. 01/10--patient is requesting something less sedating, will replace with Ativan 1 mg po BID starting tonight and as valium clears. 01/11 - Continue as above - patient continues to be very anxious, delayed responses to questions. 01/12 -patient has spent the last 2 days in bed, refusing groups, and reports lethargy and sedation. Will decrease lorazepam as above, and start risperidone. 01/13 - Patient is spent more time outside to her room and reports she feels still anxious without any improvement. - Lorazepam 0.5 mg every morning and 1 mg nightly will be continued. (3) UTI (urinary tract infection): 01/08 -Although the patient does not complain of any urinary tract infection symptoms, there were 4+ bacteria in her urine sample, and it was recommended in the emergency department that she be treated with an antibiotic empirically. -We will continue to monitor for symptoms of urinary tract infection 01/09--reviewed. UC pending. 01/10--corynbacter, no sensitivities, tolerating antibiotic, no urinary symptoms. Inventory Assets Strengths: Positive premorbid history. Strong supportive marriage. Intelligent. Needs: Improved mood. Risk Factors Assessment Male: No : Yes Do You Have Access To A Gun?: No Health Problems: Yes Mental Health Diagnoses: Yes Substance Use Disorders: No Previous Attempt: No Family History of Suicide: No Previous Psychiatric Hospitalization: Yes Hopelessness: Yes Smoker: No Protective Factors Assessment Adventist Beliefs: Yes : Yes Responsible for Young Children: No Employed: No Stable Relationships: Yes Supportive Family: Yes Good Rapport with Provider: No Absence of Any Risk Factors Above: No Interval History Identifying Information DELMI RAMIREZ is a 64-year-old F who currently lives in the [place] area with her . Has a history of anxiety and depression, and was admitted on 01/09/20 14:08 on a 201 voluntary commitment for intractable anxiety, inability to adequately care for her own physical needs, and severe depression. Chief Complaint "I'd like to go back to my room". Review of Systems Notes Constitutional: feeling tired cardiovascular: denied Respiratory: denied GI: denied Neurologic: denied Psychiatric: denies symptoms other than stated above Remainder of 10 body systems also reviewed and denied other than noted above. Sleep Information Total Hours of Sleep: 11.75 Sleep Comments: Patient slept 4.75 hours prior to 0000. Meal Information Percent Meal Consumed - Breakfast: 40 Percent Meal Consumed - Lunch: 40 Percent Meal Consumed - Dinner: 70 Nutrition Comment: pt. has poor appetite; not able to identify any foods that sound appealing at this time. Subjective Subjective Patient was seen & assessed and interval progress reviewed with treatment team. Staff report the patient has been refusing to participate in group program due to feeling tired and has been staying in her bed all day long without attending to ADLs. She did't show significant thought blocking when she made phone calls to family members last night, and she looked better communicating with them. She ate more at supper last evening. Due to her inactivity, patient's room was locked to make her stay longer outside of her room. Patient was seen today to assess progress since admission. Patient states that she does not feel good at all and feels even upset today because she cannot go back to her room. She was in the community meeting but she states that there was anything she could share with other people. She feels more tired after taking Risperdal 0.5 mg twice a day and once again she mentions she needs to go back to her room. However she agrees to continue current medication regimen and to titrate further if it is necessary. She reports that she has been experiencing vegetative symptoms for the past 1 month after her [id number] business was forced to be closed and she has not left her bedroom much at home either because she felt like she lost everything. However she responded quicker today than expected and she did not show significant signs of thought blocking on today's assessment. She states that she still feels as anxious as she used to be and does not see improvement in her mood and anxiety. When she was asked if there was anything we can do for her, she says she just wants to go back to her room. She was asked by nursing staff to take a shower after the assessment and when she was seen again in a day room afterwards, she states that she feels much better even though she doesn't recall if I saw her this morning. Physical Exam Psychiatric Orientation: alert and oriented x 3 Apperance: appropriately dressed (after taking a shower), appropriately groomed (after taking a shower) and + disheveled Eye Contact: + fair eye contact Motor Behavior: + psychomotor agitation slow speech Affect: + flat affect and + blunted affect Mood: + depressed mood and + anxious mood Thought Process: + thought blocking (not significant ) Thought Content: + preoccupation (going back to her room and going home), + hopelessness and + worthlessness Suicidal Thoughts: denies suicidal thoughts and denies suicidal intent Homicidal Thoughts: denies homicidal thoughts Hallucinations: no auditory hallucinations and no visual hallucinations Cognition: remote memory grossly intact; + recent memory not intact (she doesn't recall she met this provider this morning) Estimated Intelligence: average estimated intelligence Insight: + poor insight Judgement: + poor judgement Vital Signs (Past 24 Hours) Last Vital Signs Temp 36.6 C 01/14/20 06:38 Pulse 106 H 01/14/20 06:38 Resp 16 01/14/20 06:38 BP 134/85 01/14/20 06:38 Pulse Ox 98 01/09/20 16:30 Results & Data ([facility]) Laboratory Results Laboratory Results - last 24 hr 01/13/20 01/14/20 01/14/20 15:10 07:40 08:17 POC Glucose 183 H 96 Fasting Glucose 107 H Triglycerides Pending Cholesterol Pending LDL Cholesterol, Calc Pending VLDL Cholesterol, Calc Pending HDL Cholesterol Pending Cholesterol/HDL Ratio Pending Vitamin B12 Folate 01/14/20 08:17 POC Glucose Fasting Glucose Triglycerides Cholesterol LDL Cholesterol, Calc VLDL Cholesterol, Calc HDL Cholesterol Cholesterol/HDL Ratio Vitamin B12 Pending Folate Pending Current Inpatient Medications Current Inpatient Medications: Current Inpatient Medications Acetaminophen (Acetaminophen 325 Mg Tab) 650 mg PO Q4H PRN PRN Reason: Headache or Minor Fever Stop: 02/08/20 14:07 Al Hydrox/Mg Hydrox/Simethicone (Aluminum/Magnesium Susp 30 Ml Udc) 30 ml PO Q4H PRN PRN Reason: GI Upset Stop: 02/08/20 14:07 Bismuth Subsalicylate (Bismuth Subsalicylate Liqd 236 Ml) 15 ml PO PRN PRN PRN Reason: Loose Stool Stop: 02/08/20 14:07 Cefdinir (Cefdinir 300 Mg Cap) 300 mg PO Q12H MOHIT Stop: 01/16/20 18:29 Last Admin: 01/14/20 07:37 Dose: 300 mg Documented by: Hydroxyzine HCl (Hydroxyzine Hcl 25 Mg Tab) 50 mg PO HSZ PRN PRN Reason: Insomnia Stop: 02/08/20 14:07 Hydroxyzine HCl (Hydroxyzine Hcl 25 Mg Tab) 25 mg PO Q4H PRN PRN Reason: Anxiety Stop: 02/08/20 14:07 Lorazepam (Lorazepam 1 Mg Tab) 1 mg PO HS MOHIT Stop: 02/12/20 21:59 Last Admin: 01/13/20 21:18 Dose: 1 mg Documented by: Lorazepam (Lorazepam 0.5 Mg Tab) 0.5 mg PO DAILY MOHIT Stop: 02/13/20 08:59 Magnesium Hydroxide (Magnesium Hydroxide Susp 30 Ml Udc) 30 ml PO DAILY PRN PRN Reason: Constipation Stop: 02/08/20 14:07 Metformin HCl (Metformin Hcl Er 500 Mg Tabcr) 500 mg PO BIDM MOHIT Stop: 02/08/20 17:44 Last Admin: 01/13/20 17:24 Dose: 500 mg Documented by: Risperidone (Risperidone 0.5 Mg Tablet) 0.5 mg PO BID MOHIT Stop: 02/12/20 09:29 Last Admin: 01/13/20 21:18 Dose: 0.5 mg Documented by: Sodium Chloride (Sodium Chloride 0.65% Na Soln 45 Ml ([place])) 1 - 2 sprays NA PRN PRN PRN Reason: Nasal Dryness/Congestion Stop: 02/08/20 14:07 Venlafaxine HCl (Venlafaxine Hcl Xr 75 Mg Capxr) 75 mg PO QAM MOHIT Stop: 02/11/20 08:59 Last Admin: 01/13/20 08:43 Dose: 75 mg Documented by: Mental Health & Subst Abuse Tx Psychiatrist Name of Psychiatrist: [facility] - Dr. Crum Psychiatrist's Psychiatric Appointment Comment: [address], [address], [place] [address] Therapist Name of Therapist: [facility]'s Date of Therapist Appointment: 01/23/20 Time of Therapist Appointment: 10:30 Therapy Appointment Comment: [address] [place] [address] Policy Writer Name of Policy Writer: . Post Discharge Appointments Primary Care Physician Name Of Family Doctor: [facility] - Dr. Mark Kellogg Primary Care Provider Appointment Comment: [address], [address], [place] [address] Contact Information Discharge Discharge Address: [address] [place] [address] (1) UTI (urinary tract infection) Hematuria presence: without hematuria Urinary tract infection type: site unspecified Qualified Code(s): N39.0 - Urinary tract infection, site not specified
[2020-01-14] MEDS: metFORMIN HCL ER 500 MG TABCR PO SCH ×2 (09:02→17:30)
[2020-01-14] MEDS: VENLAFAXINE HCL XR 75 MG CAPXR PO SCH (09:02)
[2020-01-14] MEDS: risperiDONE 0.5 MG TABLET PO SCH ×2 (09:02→20:49)
[2020-01-14 09:03] LABS: Chol HDL Ratio 5; Cholesterol 241 mg/dl (0-200); HDL Cholesterol 54 mg/dl; LDL Cholesterol Calculated 156 mg/dl; Triglycerides 157 mg/dl (0-150); VLDL Cholesterol 31 mg/dl
[2020-01-14] MEDS: LORazepam 0.5 MG TAB PO SCH (09:03)
[2020-01-14] MEDS: VENLAFAXINE HCL XR 37.5 MG CAPXR PO SCH (11:02)
--- NOTE | 2020-01-14 11:11 | Communication Note ---
Date of Service: January 14, 2020 Called and spoke with patient's sister, Aimee Shanks, at her request. Reviewed the patient's current diagnosis, history of her illness per the patient sister, current medications, and expectations for response to treatment, including that given that her symptoms have been going on for months and are severe, that it will take weeks to months for recovery. Aimee is frustrated as the patient has been getting worse for some time, and she has been trying to provide information to her PCP, encouraging treatment, and had made recommendations to the patient's which she does not feel were followed. She states the patient wants to go home so that she can "hide in her house," as she has been isolating there, spending days alone, lying on the couch, not eating or functioning. Aimee feels the patient needs to be pushed to do things, and would like her to have some in- home caregivers. She states the patient will not take her medications, and her won't make her take them. Her "lyly by going to work," and the patient is left home alone where she does not eat or do ADLs. She thinks the patient would do better if she was living with somebody who would make her meals several times a day, get her out of bed, and engage her in activities, and has considered asking the patient to move in with her 85-year-old mother, who lives near [place] (several hours away from [place]). She does not feel the patient's is willing or able to provide the care she needs now. She has multiple questions about what services would be available in the community for in-home treatment. She also reported concerns about the patient's cognitive abilities, stating she was making statements that were not true, for example saying she could not find a therapy office downtown when the patient's sister wanted her to have an appointment there, even though she knows where it is. 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 Her sister wondered if this meant she was developing dementia. Educated her about symptoms of severe depression, specifically depression that progresses to psychosis, and that the patient's symptoms are most likely due to her depression, but that of cognitive impairment continues after depression is in remission, then a neurological work-up would be indicated. Also discussed the indications for each of her medications, and that we are still adjusting medications to try to find effective, well-tolerated ones. She also reported the patient has been stressed due to issues with her 3 adult children: Her oldest son has been struggling with substance abuse and has been in and out of half-way, has called family members leaving harassing messages, and is now estranged and "basically disowned" from the family. Her daughter Benita lives in [place] and went through a divorce, during which time the patient was going back and forth to help support her, but now Benita "has a new life and doesn't need mom," so she has lost that role. Her youngest son lives in [place] and is also going through a divorce, and the patient has not been able to visit to help support him due to the pandemic. Aimee feels the patient has "lost her identity," and that is part of her current struggle. She would like to be involved in any discharge planning meetings and would like assistance in setting up increased supports prior to discharge if the patient stays in [facility].
[2020-01-14 14:29] LABS: Folate (Folic Acid) 6.61 ng/ml (>5.38)
[2020-01-14] MEDS: LORazepam 1 MG TAB PO SCH (20:49)
[2020-01-15] MEDS: CEFDINIR 300 MG CAP PO SCH ×2 (06:08→18:20)
[2020-01-15] MEDS: risperiDONE 0.5 MG TABLET PO SCH (09:47)
[2020-01-15] MEDS: VENLAFAXINE HCL XR 37.5 MG CAPXR PO SCH (09:47)
[2020-01-15] MEDS: VENLAFAXINE HCL XR 75 MG CAPXR PO SCH (09:47)
[2020-01-15] MEDS: metFORMIN HCL ER 500 MG TABCR PO SCH ×2 (09:47→17:31)
[2020-01-15] MEDS: LORazepam 0.5 MG TAB PO SCH (09:47)
--- NOTE | 2020-01-15 11:20 | Psychiatric Progress Note ---
Date of Service January 15, 2020 Impression / Recommendations Impression 64-year-old female admitted voluntarily on 01/09/2020 after presenting to the ED with worsening depression, anxiety, and inability to care for herself. 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 She also reported stress related to family discord involving her 3 adult children. She was admitted to [facility] in 10/2019 and was discharged with outpatient treatment, but symptoms worsened to the point that she is unable to care for herself at home, even with support from her family. She has had multiple medication adjustments/trials here. Inpatient psychiatric treatment is medically necessary as patient is still not attending to ADLs, has poor p.o. intake, is unable to function, and is not able to tolerate the stress associated with community re-entry at this time. Her family have expressed concerns that they are unable to manage her independently at home, and she may require additional in-home supports. (1) Severe depression: 01/08 -The patient has been admitted to the inpatient psychiatric service at [facility], a locked behavioral health unit. She has been referred for individual, group, activity and family therapy. She is also being closely monitored. -Begin venlafaxine ER 37.5 mg twice a day. 01/09-reviewed, Effexor XR appears to have been ordered for qam, she is currently refusing increase. 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 Zamora. 01/10--improved but seems to have some sedation and confusion either from Valium or resolving delirium component, doesn't appear to be progressing to catatonia. Need to establish baseline with family, ?head imaging. - agreed to increase to 75 mg po qam. 01/11 - Continue current medication regimen - venlafaxine 75mg increased this morning, and lorazepam 1mg BID. - Pt remains withdrawn and anxious, has not been attending to ADLs and requires significant encouragement to attend group programming. She has not showered, is still eating poorly, and has been dressing somewhat bizarrely (still wearing paper scrub shirt, but over other clothing - two layers of socks, etc). - Will gather collateral information and update sister, who has provided written collateral - patient has signed BRISA - Continue to update , patient will require family meeting when she is better able to participate - Continue MNPR for now 01/12 -Increase venlafaxine ER to 112.5 mg. -Reduce lorazepam to 0.5 mg every morning and 1 mg at bedtime to try to reduce daytime somnolence. Initiate risperidone 1 mg twice daily to target psychotic depression and thought blocking. Fasting labs ordered for tomorrow for monitoring on an atypical antipsychotic, as well as folate acid and vitamin B12 levels as part of her organic work-up for psychosis. Refer to PCP for brain MRI after discharge. -Continue private room due to psychosis, not yet ready to tolerate family meeting with . 01/13 -Continue venlafaxine ER 112.5 mg and risperidone 0.5 mg twice daily. If she can tolerate risperidone better without significant fatigue, then risperidone will be titrated further up to 1 mg twice a day. -Fasting lab results reviewed with the patient. Fasting glucose elevated at 10 7, triglycerides at 157 and cholesterol at 241 but all other values are WNL. Folate and vitamin B12 level are still pending. -Continue MNPR. 01/14 -Consolidate risperidone to bedtime to minimize daytime sedation. Continue to encourage patient to be out of her room participating in groups -Schedule family meeting with her and sister to begin discharge planning. Sister indicated interest in additional supports in the home, possibly mobile psych rehab or psych home health nursing. She would benefit from a PHP or IOP, unfortunately not available in our community. (2) Severe anxiety: 01/08 -The patient has been given a medically necessary private room because of her extreme restlessness and need to pace. -Patient has been offered a trial of diazepam 5 mg by mouth. The context is that the patient's report that lorazepam 1 mg by mouth providers earlier in the day was helpful to her, but the benefit was not sustained. Accordingly, we will try diazepam because it is longer acting. -As tolerated, the patient will be given diazepam 2 mg 3 times daily as a standing dose medication. -Hydroxyzine is available as an as needed medication. She will also be eligible to receive hydroxyzine 50 mg at bedtime for sleep, and her third dose of diazepam 2 mg will be given near to the hours of sleep, and may serve as a soporific. 01/09--Valium trial as per Dr. Zamora, monitor gait given age and fall risk. 01/10--patient is requesting something less sedating, will replace with Ativan 1 mg po BID starting tonight and as valium clears. 01/11 - Continue as above - patient continues to be very anxious, delayed responses to questions. 01/12 -patient has spent the last 2 days in bed, refusing groups, and reports lethargy and sedation. Will decrease lorazepam as above, and start risperidone. 01/13 - Patient is spent more time outside to her room and reports she feels still anxious without any improvement. - Lorazepam 0.5 mg every morning and 1 mg nightly will be continued. 01/14 -Anxiety much improved, decrease lorazepam to 1 mg at bedtime. (3) UTI (urinary tract infection): 01/08 -Although the patient does not complain of any urinary tract infection symptoms, there were 4+ bacteria in her urine sample, and it was recommended in the e mergency department that she be treated with an antibiotic empirically. -We will continue to monitor for symptoms of urinary tract infection 01/09--reviewed. UC pending. 01/10--corynbacter, no sensitivities, tolerating antibiotic, no urinary symptoms. Inventory Assets Strengths: Positive premorbid history. Strong supportive marriage. Intelligent. Needs: Improved mood. Risk Factors Assessment Male: No : Yes Do You Have Access To A Gun?: No Health Problems: Yes Mental Health Diagnoses: Yes Substance Use Disorders: No Previous Attempt: No Family History of Suicide: No Previous Psychiatric Hospitalization: Yes Hopelessness: Yes Smoker: No Protective Factors Assessment Episcopal Beliefs: Yes : Yes Responsible for Young Children: No Employed: No Stable Relationships: Yes Supportive Family: Yes Good Rapport with Provider: No Absence of Any Risk Factors Above: No Interval History Identifying Information DELMI RAMIREZ is a 64-year-old F who currently lives in the [place] area with her . Has a history of anxiety and depression, and was admitted on 01/09/20 14:08 on a 201 voluntary commitment for intractable anxiety, inability to adequately care for her own physical needs, and severe depression. Chief Complaint "Okay". Review of Systems Sleep Information Total Hours of Sleep: 8.25 Sleep Comments: Patient slept 4.75 hours prior to 0000. Meal Information Percent Meal Consumed - Breakfast: 35 Percent Meal Consumed - Lunch: 25 Percent Meal Consumed - Dinner: 50 Nutrition Comment: pt. has poor appetite; not able to identify any foods that sound appealing at this time. Subjective Subjective Patient was seen & assessed and interval progress reviewed with nursing and social work. Staff report patient was out of her room and attended groups yesterday, was able to sit through them without pacing, showered and dressed, but returned to her bed during free time. On my assessment she was seen in her room where she had returned to bed in between groups. She states her mood is unchanged from admission, rates it a 2/10, and says she is only going to groups because "they told me I needed to." She admits that it is helpful for her to "be with others, know I'm not alone," but does not think anything that was discussed in groups applies to her. She continues to focus on "going home," stating "it's my comfort zone." She admits she was not caring for herself or "doing my normal routine" at home, and cannot give any suggestions for how she might improve self-care. She admits she was not taking her medications, but cannot explain why other than "sometimes I forget." She denies suicidal thoughts, but cannot give any suggestions for how she would manage her daily needs at home. She reports appetite is improving but still suboptimal, and energy and motivation remain low. Records were reviewed from [facility] family medicine in [place]. Patient saw Jens Crum, PhD (no DR, but it was signed 01/02/2020). She presented with her , reported history of a brief episode of depression but no other mental health issues until the pandemic/shutdown in spring 2019. Current episode appeared to be triggered by the pandemic and resulting lockdown, with negative impact on her job, social isolation, and increased family stress. She reported poor medication adherence, was not seen a psychiatrist, but was in therapy with Lakia Ortiz and had met with her for the past 3 weeks. She was diagnosed with major depressive disorder, recurrent, severe with melancholic features. confirmed that guns were not accessible to her, and although she reported thoughts she denied any plan or intent to harm herself. Another appointment was scheduled for 1 week, and a plan was reported to refer her for psychiatric consultation through collaborative [facility] and to contact her therapist for treatment planning. Physical Exam Psychiatric Orientation: alert and cooperative (Partially, sometimes stares blankly and gives evasive answers) Apperance: appropriately dressed and appropriately groomed Hair has been washed, wearing street clothes. Lying in bed awake in no acute distress. Stares blankly at times Motor Behavior: steady gait and station and no abnormal motor movements Monotone, slight delay but improved from earlier in hospitalization. Affect: + depressed affect, + constricted affect and mood congruent with affect Mood: + depressed mood Thought Process: + concrete thought process Thought Content: + hopelessness Homicidal Thoughts: denies homicidal thoughts Hallucinations: no auditory hallucinations Insight: + impaired insight Judgement: + impaired judgement Vital Signs (Past 24 Hours) Last Vital Signs Temp 36.6 C 01/15/20 06:16 Pulse 77 01/15/20 06:16 Resp 17 01/15/20 06:16 BP 110/77 01/15/20 06:16 Pulse Ox 98 01/09/20 16:30 Results & Data ([facility]) Laboratory Results Laboratory Results - last 24 hr 01/14/20 08:17 Vitamin B12 181 L Folate 6.61 Current Inpatient Medications Current Inpatient Medications: Current Inpatient Medications Acetaminophen (Acetaminophen 325 Mg Tab) 650 mg PO Q4H PRN PRN Reason: Headache or Minor Fever Stop: 02/08/20 14:07 Al Hydrox/Mg Hydrox/Simethicone (Aluminum/Magnesium Susp 30 Ml Udc) 30 ml PO Q4H PRN PRN Reason: GI Upset Stop: 02/08/20 14:07 Bismuth Subsalicylate (Bismuth Subsalicylate Liqd 236 Ml) 15 ml PO PRN PRN PRN Reason: Loose Stool Stop: 02/08/20 14:07 Cefdinir (Cefdinir 300 Mg Cap) 300 mg PO Q12H MOHIT Stop: 01/16/20 18:29 Last Admin: 01/15/20 06:08 Dose: 300 mg Documented by: Hydroxyzine HCl (Hydroxyzine Hcl 25 Mg Tab) 50 mg PO HSZ PRN PRN Reason: Insomnia Stop: 02/08/20 14:07 Hydroxyzine HCl (Hydroxyzine Hcl 25 Mg Tab) 25 mg PO Q4H PRN PRN Reason: Anxiety Stop: 02/08/20 14:07 Lorazepam (Lorazepam 1 Mg Tab) 1 mg PO HS MOHIT Stop: 02/12/20 21:59 Last Admin: 01/14/20 20:49 Dose: 1 mg Documented by: Lorazepam (Lorazepam 0.5 Mg Tab) 0.5 mg PO DAILY MOHIT Stop: 02/13/20 08:59 Last Admin: 01/15/20 09:47 Dose: 0.5 mg Documented by: Magnesium Hydroxide (Magnesium Hydroxide Susp 30 Ml Udc) 30 ml PO DAILY PRN PRN Reason: Constipation Stop: 02/08/20 14:07 Metformin HCl (Metformin Hcl Er 500 Mg Tabcr) 500 mg PO BIDM MOHIT Stop: 02/08/20 17:44 Last Admin: 01/15/20 09:47 Dose: 500 mg Documented by: Risperidone (Risperidone 0.5 Mg Tablet) 0.5 mg PO BID MOHIT Stop: 02/12/20 09:29 Last Admin: 01/15/20 09:47 Dose: 0.5 mg Documented by: Sodium Chloride (Sodium Chloride 0.65% Na Soln 45 Ml (Regal)) 1 - 2 sprays NA PRN PRN PRN Reason: Nasal Dryness/Congestion Stop: 02/08/20 14:07 Venlafaxine HCl (Venlafaxine Hcl Xr 75 Mg Capxr) 75 mg PO QAM MOHIT Stop: 02/11/20 08:59 Last Admin: 01/15/20 09:47 Dose: 75 mg Documented by: Venlafaxine HCl (Venlafaxine Hcl Xr 37.5 Mg Capxr) 37.5 mg PO QAM MOHIT Stop: 02/13/20 09:59 Last Admin: 01/15/20 09:47 Dose: 37.5 mg Documented by: Mental Health & Subst Abuse [facility] Psychiatrist Name of Psychiatrist: Shubham Power PA-C Psychiatrist's Date of Appointment with Psychiatrist: 01/21/20 Time of Appointment with Psychiatrist: 11:00 a.m. Psychiatric Appointment Comment: [place] [id number] Therapist Name of Therapist: Ric Ortiz Therapist's Date of Therapist Appointment: 01/23/20 Time of Therapist Appointment: 10:30 a.m. 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 Post Discharge Appointments Primary Care Physician Name Of Family Doctor: [facility] - Dr. Mark Kellogg Primary Care Provider Appointment Comment: [address], [address], [place] [address] Contact Information Discharge Discharge [address]: [address] [place] [address],[place] [id number] (1) UTI (urinary tract infection) Hematuria presence: without hematuria Urinary tract infection type: site unspecified Qualified Code(s): N39.0 - Urinary tract infection, site not specified
[2020-01-15] MEDS: LORazepam 1 MG TAB PO SCH (20:22)
[2020-01-15] MEDS ORDERED: risperiDONE 1 MG TABLET PO SCH (22:00)
[2020-01-16] MEDS: CEFDINIR 300 MG CAP PO SCH (06:06)
[2020-01-16] MEDS: VENLAFAXINE HCL XR 37.5 MG CAPXR PO SCH (10:07)
[2020-01-16] MEDS: VENLAFAXINE HCL XR 75 MG CAPXR PO SCH (10:07)
[2020-01-16] MEDS: metFORMIN HCL ER 500 MG TABCR PO SCH ×2 (10:07→18:20)
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
[2020-01-16] MEDS ORDERED: IOVERSOL 100ml IV ONE (17:35)
--- NOTE | 2020-01-16 17:46 | CT Scan Report ---
CT head/brain wo/w con HISTORY: Progressive ataxia with right pronator drift. TECHNIQUE: Multiaxial CT images of the head were performed both before and after the intravenous admi nistration of 93 cc of Optiray 320. COMPARISON STUDY: None. FINDINGS: The paranasal sinuses and mastoid air cells are clear. The calvarium and skull base are int act. There is no mass, hematoma, midline shift, acute infarct. The ventricles and sulci are within no rmal limits. Postcontrast sequences show no areas of abnormal enhancement. IMPRESSION: Normal head CT. ACT 112: Negative or not required by law. Electronically signed by: Srikanth Vega M.D. 01/16/2020 5:45 PM
[2020-01-16] MEDS: LORazepam 1 MG TAB PO SCH (20:17)
[2020-01-16] MEDS: risperiDONE 0.5 MG TABLET PO SCH (20:17)
[2020-01-16] MEDS ORDERED: risperiDONE 0.5 MG TABLET PO SCH (21:00)
[2020-01-17] MEDS ORDERED: risperiDONE 0.5 MG TABLET PO SCH (07:00)
[2020-01-17] MEDS: OLANZAPINE 2.5 MG TAB PO SCH ×2 (10:25→14:37)
[2020-01-17] MEDS: VENLAFAXINE HCL XR 150 MG CAPXR PO SCH (10:25)
--- NOTE | 2020-01-17 11:54 | Psychiatric Progress Note ---
Date of Service January 17, 2020 Impression / Recommendations Impression Per admitting provider: 64-year-old female admitted voluntarily on 01/09/2020 after presenting to the ED with worsening depression, anxiety, and inability to care for herself. 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 She also reported stress related to family discord involving her 3 adult children. She was admitted to [facility] in 10/2019 and was discharged with outpatient treatment, but symptoms worsened to the point that she is unable to care for herself at home, even with support from her family. She has had multiple medication adjustments/trials here. Inpatient psychiatric treatment is medically necessary as patient is still not attending to ADLs, has poor p.o. intake, is unable to function, and is not able to tolerate the stress associated with community re-entry at this time. Her family have expressed concerns that they are unable to manage her independently at home, and she may require additional in-home supports. Patient has demonstrated modest recompensation but remains severely impaired by her depression and unable to independently adequately meet her daily needs without significant direction and support. She is certainly at high risk of harm if discharged prematurely. (1) Severe depression: 01/08 -The patient has been admitted to the inpatient psychiatric service at [facility], a locked behavioral health unit. She has been referred for individual, group, activity and family therapy. She is also being closely monitored. -Begin venlafaxine ER 37.5 mg twice a day. 01/09-reviewed, Effexor XR appears to have been ordered for qam, she is currently refusing increase. 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 Zamora. 01/10--improved but seems to have some sedation and confusion either from Valium or resolving delirium component, doesn't appear to be progressing to catatonia. Need to establish baseline with family, ?head imaging. - agreed to increase to 75 mg po qam. 01/11 - Continue current medication regimen - venlafaxine 75mg increased this morning, and lorazepam 1mg BID. - Pt remains withdrawn and anxious, has not been attending to ADLs and requires significant encouragement to attend group programming. She has not showered, is still eating poorly, and has been dressing somewhat bizarrely (still wearing paper scrub shirt, but over other clothing - two layers of socks, etc). - Will gather collateral information and update sister, who has provided written collateral - patient has signed BRISA - Continue to update , patient will require family meeting when she is be tter able to participate - Continue MNPR for now 01/12 -Increase venlafaxine ER to 112.5 mg. -Reduce lorazepam to 0.5 mg every morning and 1 mg at bedtime to try to reduce daytime somnolence. Initiate risperidone 1 mg twice daily to target psychotic depression and thought blocking. Fasting labs ordered for tomorrow for monitoring on an atypical antipsychotic, as well as folate acid and vitamin B12 levels as part of her organic work-up for psychosis. Refer to PCP for brain MRI after discharge. -Continue private room due to psychosis, not yet ready to tolerate family meeting with . 01/13 -Continue venlafaxine ER 112.5 mg and risperidone 0.5 mg twice daily. If she can tolerate risperidone better without significant fatigue, then risperidone will be titrated further up to 1 mg twice a day. -Fasting lab results reviewed with the patient. Fasting glucose elevated at 107, triglycerides at 157 and cholesterol at 241 but all other values are WNL. Folate and vitamin B12 level are still pending. -Continue MNPR. 01/14 -Consolidate risperidone to bedtime to minimize daytime sedation. Continue to encourage patient to be out of her room participating in groups -Schedule family meeting with her and sister to begin discharge planning. Sister indicated interest in additional supports in the home, possibly mobile psych rehab or psych home health nursing. She would benefit from a PHP or IOP, unfortunately not available in our community. 01/15 -The patient numbers that she is feeling "more depressed" today, but adds that overall she knows that she is getting better and has been generally less depressed than at the time of admission. The patient also reports that she is tolerating her medications, including venlafaxine, well without any noted adverse effects. -Today, we will increase her dose of venlafaxine to venlafaxine XL 150 mg a day, first dose in the morning. -We are also changing her dose schedule for risperidone from 1 mg at bedtime to 0.25 mg twice a day and 0.5 mg at bedtime because today the patient says that she is feeling more depressed and somewhat more prone to rumination and excessive worrying than she had yesterday. -The patient appears to be responding favorably to a combination of venlafaxine and risperidone. We are in the process of making various adjustments and titrations to these medications. Her sleep is improved and her anxiety levels have diminished. However, the patient continues to tell us that she is depressed, and continues to require assistance encouragement to perform basic activities of daily living such as showering. 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 twice daily today and discontinue her daytime Risperdal. If we see evidence of improved response, we will plan to discontinue the nighttime Risperdal and continue with the olanzapine instead tomorrow. Reviewed history of diabetes and metabolic risks associated with atypical antipsychotics with patient. She reports her diabetes is typically well controlled at home. She has recently suffered a significant weight loss associated with her depression. She will need to watch weight trend on olanzapine however hopefully this is only a temporary intervention until her depression more adequately remits -She will continue the increased dose of Effexor as above with plan to continue titration pending need and tolerability. (2) Severe anxiety: 01/08 -The patient has been given a medically necessary private room because of her extreme restlessness and need to pace. -Patient has been offered a trial of diazepam 5 mg by mouth. The context is that the patient's report that lorazepam 1 mg by mouth providers earlier in the day was helpful to her, but the benefit was not sustained. Accordingly, we will try diazepam because it is longer acting. -As tolerated, the patient will be given diazepam 2 mg 3 times daily as a standing dose medication. -Hydroxyzine is available as an as needed medication. She will also be eligible to receive hydroxyzine 50 mg at bedtime for sleep, and her third dose of diazepam 2 mg will be given near to the hours of sleep, and may serve as a soporific. 01/09--Valium trial as per Dr. Zamora, monitor gait given age and fall risk. 01/10--patient is requesting something less sedating, will replace with Ativan 1 mg po BID starting tonight and as valium clears. 01/11 - Continue as above - patient continues to be very anxious, delayed responses to questions. 01/12 -patient has spent the last 2 days in bed, refusing groups, and reports lethargy and sedation. Will decrease lorazepam as above, and start risperidone. 01/13 - Patient is spent more time outside to her room and reports she feels still anxious without any improvement. - Lorazepam 0.5 mg every morning and 1 mg nightly will be continued. 01/14 -Anxiety much improved, decrease lorazepam to 1 mg at bedtime. 01/15 -The patient reports that she feels that her anxiety and tendency to obsessively ruminate has seemed a bit today. She attributes this to being "homesick," but it may be that the consolidation of risperidone to 1 mg at bedtime (with no daytime dosages) may be contributing. The plan will be to continue lorazepam 1 mg at bedtime, and, as above, we are changing her schedule for risperidone from 1 mg at bedtime with no daytime coverage to risperidone 0.25 mg twice a day, 7 and 1400, and 0.5 mg at bedtime. 01/16 -Trial olanzapine as above which may be more effective for anxiolysis and reduced risk for akathisia as compared to the Risperdal (3) UTI (urinary tract infection): 01/08 -Although the patient does not complain of any urinary tract infection symptoms, there were 4+ bacteria in her urine sample, and it was recommended in the emergency department that she be treated with an antibiotic empirically. -We will continue to monitor for symptoms of urinary tract infection 01/09--reviewed. UC pending. 01/10--corynbacter, no sensitivities, tolerating antibiotic, no urinary symptoms. 01/15 -No UTI symptoms noted or reported. Inventory Assets Strengths: Positive premorbid history. Strong supportive marriage. Intelligent. Needs: Improved mood. Risk Factors Assessment Male: No : Yes Do You Have Access To A Gun?: No Health Problems: Yes Mental Health Diagnoses: Yes Substance Use Disorders: No Previous Attempt: No Family History of Suicide: No Previous Psychiatric Hospitalization: Yes Hopelessness: Yes Smoker: No Protective Factors Assessment Catholic Beliefs: Yes : Yes Responsible for Young Children: No Employed: No Stable Relationships: Yes Supportive Family: Yes Good Rapport with Provider: No Absence of Any Risk Factors Above: No Interval History Identifying Information DELMI RAMIREZ is a 64-year-old F who currently lives in the [place] area with her . Has a history of anxiety and depression, and was admitted on 01/09/20 14:08 on a 201 voluntary commitment for intractable anxiety, inability to adequately care for her own physical needs, and severe depression. Chief Complaint "I am no better". Review of Systems Notes Denies dystonia Sleep Information Total Hours of Sleep: 10 Sleep Comments: Patient slept 4.75 hours prior to 0000. Meal Information Percent Meal Consumed - Breakfast: 30 Percent Meal Consumed - Lunch: 25 Percent Meal Consumed - Dinner: 30 Nutrition Comment: pt. has poor appetite; not able to identify any foods that sound appealing at this time. Subjective Subjective Patient was seen & assessed and interval progress reviewed with treatment team. Patient underwent head CT yesterday to rule out acute intracranial pathology that might explain altered mental status which was negative on review. Metformin will be held for 2 days as she received contrast dye. She is eating a little better and attending groups with prompting and behavioral planning but with limited participation. She rated her mood as a 2 out of 10 last evening. On interview this morning she states that she feels no better since time of arrival. Complains of continued feelings of internal restlessness and she demonstrates frequent shifting of position and some myoclonic jerks as she sits on her bed. Denies recent pacing. She denies thought racing or busy mindedness. Is sleeping during the day. She denies overt side effects associated with psychotropics started here. Reviewed Effexor increased to 150 mg to start this morning and Risperdal redivided as she complained of increased obsessional thought content yesterday with consolidated dose at bedtime. Physical Exam Psychiatric Orientation: alert, oriented x 3 and cooperative Apperance: + disheveled Eye Contact: + fair eye contact Motor Behavior: + psychomotor agitation (Restless, fidgety); n tremor Speech: + abnormal rate/rhythm/volume of speech (Minimally spontaneous) Affect: + depressed affect Mood: + depressed mood and + anxious mood Thought Process: goal directed thought process Thought Content: + preoccupation and + hopelessness Suicidal Thoughts: denies suicidal thoughts Homicidal Thoughts: denies homicidal thoughts Hallucinations: no auditory hallucinations and no visual hallucinations Cognition: recent memory grossly intact Insight: + fair insight Judgement: + limited judgement Vital Signs (Past 24 Hours) Last Vital Signs Temp 36.7 C 01/17/20 06:33 Pulse 91 H 01/17/20 06:33 Resp 18 01/17/20 06:33 BP 131/88 01/17/20 06:33 Pulse Ox 98 01/09/20 16:30 Results & Data ([facility]) Laboratory Results Laboratory Results - last 24 hr 01/17/20 08:51 POC Glucose 108 H Diagnostic Findings Head CT 01/16/2020 unremarkable Current Inpatient Medications Current Inpatient Medications: Current Inpatient Medications Acetaminophen (Acetaminophen 325 Mg Tab) 650 mg PO Q4H PRN PRN Reason: Headache or Minor Fever Stop: 02/08/20 14:07 Al Hydrox/Mg Hydrox/Simethicone (Aluminum/Magnesium Susp 30 Ml Udc) 30 ml PO Q4H PRN PRN Reason: GI Upset Stop: 02/08/20 14:07 Bismuth Subsalicylate (Bismuth Subsalicylate Liqd 236 Ml) 15 ml PO PRN PRN PRN Reason: Loose Stool Stop: 02/08/20 14:07 Hydroxyzine HCl (Hydroxyzine Hcl 25 Mg Tab) 50 mg PO HSZ PRN PRN Reason: Insomnia Stop: 02/08/20 14:07 Hydroxyzine HCl (Hydroxyzine Hcl 25 Mg Tab) 25 mg PO Q4H PRN PRN Reason: Anxiety Stop: 02/08/20 14:07 Lorazepam (Lorazepam 1 Mg Tab) 1 mg PO HS MOHIT Stop: 02/12/20 21:59 Last Admin: 01/16/20 20:17 Dose: 1 mg Documented by: Magnesium Hydroxide (Magnesium Hydroxide Susp 30 Ml Udc) 30 ml PO DAILY PRN PRN Reason: Constipation Stop: 02/08/20 14:07 Metformin HCl (Metformin Hcl Er 500 Mg Tabcr) 500 mg PO BIDM MOHIT Stop: 02/08/20 17:44 Last Admin: 01/16/20 18:20 Dose: Not Given Documented by: Olanzapine (Olanzapine 2.5 Mg Tab) 2.5 mg PO [id number] MOHIT Stop: 02/16/20 09:39 Last Admin: 01/17/20 10:25 Dose: 2.5 mg Documented by: Risperidone (Risperidone 0.5 Mg Tablet) 0.5 mg PO HS MOHIT Stop: 02/15/20 21:59 Last Admin: 01/16/20 20:17 Dose: 0.5 mg Documented by: Sodium Chloride (Sodium Chloride 0.65% Na Soln 45 Ml ([place])) 1 - 2 sprays NA PRN PRN PRN Reason: Nasal Dryness/Congestion Stop: 02/08/20 14:07 Venlafaxine HCl (Venlafaxine Hcl Xr 150 Mg Capxr) 150 mg PO QAM MOHIT Stop: 02/16/20 08:59 Last Admin: 01/17/20 10:25 Dose: 150 mg Documented by: Mental Health & Subst Abuse Tx Psychiatrist Name of Psychiatrist: Shubham Power PA-C Psychiatrist's Date of Appointment with Psychiatrist: 01/21/20 Time of Appointment with Psychiatrist: 11:00 a.m. Psychiatric Appointment Comment: [address] [place] [address] Therapist Name of Therapist: Ric Ortiz Therapist's Date of Therapist Appointment: 01/23/20 Time of Therapist Appointment: 10:30 a.m. Therapy Appointment Comment: [address] [place] [address] Hand Stapler Name of Hand Stapler: . Post Discharge Appointments Primary Care Physician Name Of Family Doctor: [facility] - Dr. Mark Kellogg Primary Care Provider Appointment Comment: [address], [address], [place] [address] Contact Information Discharge Discharge Address: [address] [place] [address] (1) UTI (urinary tract infection) Hematuria presence: without hematuria Urinary tract infection type: site unspecified Qualified Code(s): N39.0 - Urinary tract infection, site not specified
[2020-01-17] MEDS: LORazepam 1 MG TAB PO SCH (20:17)
[2020-01-17] MEDS: risperiDONE 0.5 MG TABLET PO SCH (20:17)
[2020-01-18] MEDS: OLANZAPINE 2.5 MG TAB PO SCH ×2 (06:33→21:10)
[2020-01-18] MEDS: VENLAFAXINE HCL XR 150 MG CAPXR PO SCH (08:54)
--- NOTE | 2020-01-18 15:40 | Psychiatric Progress Note ---
Date of Service January 18, 2020 Impression / Recommendations Impression Per admitting provider: 64-year-old female admitted voluntarily on 01/09/2020 after presenting to the ED with worsening depression, anxiety, and inability to care for herself. 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 She also reported stress related to family discord involving her 3 adult children. She was admitted to [facility] in 10/2019 and was discharged with outpatient treatment, but symptoms worsened to the point that she is unable to care for herself at home, even with support from her family. She has had multiple medication adjustments/trials here. Inpatient psychiatric treatment is medically necessary as patient is still not attending to ADLs, has poor p.o. intake, is unable to function, and is not able to tolerate the stress associated with community re-entry at this time. Her family have expressed concerns that they are unable to manage her independently at home, and she may require additional in-home supports. Patient has demonstrated modest recompensation but remains severely impaired by her depression and unable to independently adequately meet her daily needs without significant direction and support. She is certainly at high risk of harm if discharged prematurely. (1) Severe depression: 01/08 -The patient has been admitted to the inpatient psychiatric service at [facility], a locked behavioral health unit. She has been referred for individual, group, activity and family therapy. She is also being closely monitored. -Begin venlafaxine ER 37.5 mg twice a day. 01/09-reviewed, Effexor XR appears to have been ordered for qam, she is currently refusing increase. 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 Zamora. 01/10--improved but seems to have some sedation and confusion either from Valium or resolving delirium component, doesn't appear to be progressing to catatonia. Need to establish baseline with family, ?head imaging. - agreed to increase to 75 mg po qam. 01/11 - Continue current medication regimen - venlafaxine 75mg increased this morning, and lorazepam 1mg BID. - Pt remains withdrawn and anxious, has not been attending to ADLs and requires significant encouragement to attend group programming. She has not showered, is still eating poorly, and has been dressing somewhat bizarrely (still wearing paper scrub shirt, but over other clothing - two layers of socks, etc). - Will gather collateral information and update sister, who has provided written collateral - patient has signed BRISA - Continue to update , patient will require family meeting when she is be tter able to participate - Continue MNPR for now 01/12 -Increase venlafaxine ER to 112.5 mg. -Reduce lorazepam to 0.5 mg every morning and 1 mg at bedtime to try to reduce daytime somnolence. Initiate risperidone 1 mg twice daily to target psychotic depression and thought blocking. Fasting labs ordered for tomorrow for monitoring on an atypical antipsychotic, as well as folate acid and vitamin B12 levels as part of her organic work-up for psychosis. Refer to PCP for brain MRI after discharge. -Continue private room due to psychosis, not yet ready to tolerate family meeting with . 01/13 -Continue venlafaxine ER 112.5 mg and risperidone 0.5 mg twice daily. If she can tolerate risperidone better without significant fatigue, then risperidone will be titrated further up to 1 mg twice a day. -Fasting lab results reviewed with the patient. Fasting glucose elevated at 107, triglycerides at 157 and cholesterol at 241 but all other values are WNL. Folate and vitamin B12 level are still pending. -Continue MNPR. 01/14 -Consolidate risperidone to bedtime to minimize daytime sedation. Continue to encourage patient to be out of her room participating in groups -Schedule family meeting with her and sister to begin discharge planning. Sister indicated interest in additional supports in the home, possibly mobile psych rehab or psych home health nursing. She would benefit from a PHP or IOP, unfortunately not available in our community. 01/15 -The patient numbers that she is feeling "more depressed" today, but adds that overall she knows that she is getting better and has been generally less depressed than at the time of admission. The patient also reports that she is tolerating her medications, including venlafaxine, well without any noted adverse effects. -Today, we will increase her dose of venlafaxine to venlafaxine XL 150 mg a day, first dose in the morning. -We are also changing her dose schedule for risperidone from 1 mg at bedtime to 0.25 mg twice a day and 0.5 mg at bedtime because today the patient says that she is feeling more depressed and somewhat more prone to rumination and excessive worrying than she had yesterday. -The patient appears to be responding favorably to a combination of venlafaxine and risperidone. We are in the process of making various adjustments and titrations to these medications. Her sleep is improved and her anxiety levels have diminished. However, the patient continues to tell us that she is depressed, and continues to require assistance encouragement to perform basic activities of daily living such as showering. 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 twice daily today and discontinue her daytime Risperdal. If we see evidence of improved response, we will plan to discontinue the nighttime Risperdal and continue with the olanzapine instead tomorrow. Reviewed history of diabetes and metabolic risks associated with atypical antipsychotics with patient. She reports her diabetes is typically well controlled at home. She has recently suffered a significant weight loss associated with her depression. She will need to watch weight trend on olanzapine however hopefully this is only a temporary intervention until her depression more adequately remits -She will continue the increased dose of Effexor as above with plan to continue titration pending need and tolerability. 01/17 -Affect modestly brighter today and appears a little less catastrophic and thought content. Additionally she is pending slowly increasing amounts of time in activities outside of room -She looks less restless and reports decreased rumination today, will discontinue the Risperdal completely and continue the olanzapine at 2.5 mg p.o. twice daily moving to morning and bedtime -Discussed consideration for dose further escalation of Effexor which remains well-tolerated but will defer decision to tomorrow at her request (2) Severe anxiety: 01/08 -The patient has been given a medically necessary private room because of her extreme restlessness and need to pace. -Patient has been offered a trial of diazepam 5 mg by mouth. The context is that the patient's report that lorazepam 1 mg by mouth providers earlier in the day was helpful to her, but the benefit was not sustained. Accordingly, we will try diazepam because it is longer acting. -As tolerated, the patient will be given diazepam 2 mg 3 times daily as a standing dose medication. -Hydroxyzine is available as an as needed medication. She will also be eligible to receive hydroxyzine 50 mg at bedtime for sleep, and her third dose of diazepam 2 mg will be given near to the hours of sleep, and may serve as a soporific. 01/09--Valium trial as per Dr. Zamora, monitor gait given age and fall risk. 01/10--patient is requesting something less sedating, will replace with Ativan 1 mg po BID starting tonight and as valium clears. 01/11 - Continue as above - patient continues to be very anxious, delayed responses to questions. 01/12 -patient has spent the last 2 days in bed, refusing groups, and reports lethargy and sedation. Will decrease lorazepam as above, and start risperidone. 01/13 - Patient is spent more time outside to her room and reports she feels still anxious without any improvement. - Lorazepam 0.5 mg every morning and 1 mg nightly will be continued. 01/14 -Anxiety much improved, decrease lorazepam to 1 mg at bedtime. 01/15 -The patient reports that she feels that her anxiety and tendency to obsessively ruminate has seemed a bit today. She attributes this to being "homesick," but it may be that the consolidation of risperidone to 1 mg at bedtime (with no daytime dosages) may be contributing. The plan will be to continue lorazepam 1 mg at bedtime, and, as above, we are changing her schedule for risperidone from 1 mg at bedtime with no daytime coverage to risperidone 0.25 mg twice a day, 7 and 1400, and 0.5 mg at bedtime. 01/16 -Trial olanzapine as above which may be more effective for anxiolysis and reduced risk for akathisia as compared to the Risperdal 01/17 -Reporting mild improvement in anxiety yesterday. Continuing olanzapine as alternative to Risperdal as above. -As anxiety improves, will consider tapering of benzodiazepine to reduce sedation (3) UTI (urinary tract infection): 01/08 -Although the patient does not complain of any urinary tract infection symptoms, there were 4+ bacteria in her urine sample, and it was recommended in the emergency department that she be treated with an antibiotic empirically. -We will continue to monitor for symptoms of urinary tract infection 01/09--reviewed. UC pending. 01/10--corynbacter, no sensitivities, tolerating antibiotic, no urinary symptoms. 01/15 -No UTI symptoms noted or reported. Inventory Assets Strengths: Positive premorbid history. Strong supportive marriage. Intelligent. Needs: Improved mood. Risk Factors Assessment Male: No : Yes Do You Have Access To A Gun?: No Health Problems: Yes Mental Health Diagnoses: Yes Substance Use Disorders: No Previous Attempt: No Family History of Suicide: No Previous Psychiatric Hospitalization: Yes Hopelessness: Yes Smoker: No Protective Factors Assessment Holiness Beliefs: Yes : Yes Responsible for Young Children: No Employed: No Stable Relationships: Yes Supportive Family: Yes Good Rapport with Provider: No Absence of Any Risk Factors Above: No Interval History Identifying Information DELMI RAMIREZ is a 64-year-old F who currently lives in the [place] area with her . Has a history of anxiety and depression, and was admitted on 01/09/20 14:08 on a 201 voluntary commitment for intractable anxiety, inability to adequately care for her own physical needs, and severe depression. Chief Complaint "The same". Review of Systems Sleep Information Total Hours of Sleep: 8.75 Sleep Comments: Patient slept 4.75 hours prior to 0000. Meal Information Percent Meal Consumed - Breakfast: 50 Percent Meal Consumed - Lunch: 50 Percent Meal Consumed - Dinner: 60 Nutrition Comment: pt. has poor appetite; not able to identify any foods that sound appealing at this time. Subjective Subjective Patient was seen & assessed and interval progress reviewed with treatment team. Yesterday daytime Risperdal was discontinued and olanzapine substituted. Staff report little outward change in demeanor or level of alertness however she has been out of her room more and attended group this morning. This morning she describes her mood as "the same." Denies that the olanzapine was sedating and indicates that she felt perhaps a little less ruminative yesterday. Also feeling less restless today. She brightens a bit conversationally and smiles a few times while she speaks today. She acknowledges likelihood that the restrictions and economic effects of COVID-19 are likely transient and she states that she expects to be able to open her business again in the future. She denies any side effects subjectively associated with the olanzapine or Effexor presently. Physical Exam Psychiatric Orientation: alert and cooperative Apperance: + disheveled Eye Contact: good eye contact Motor Behavior: no psychomotor agitation and n tremor Speech: + abnormal rate/rhythm/volume of speech (Remains minimal but clear) Affect: + blunted affect (Smiles briefly today) "The same" Thought Process: goal directed thought process Thought Content: + preoccupation Suicidal Thoughts: denies suicidal thoughts Homicidal Thoughts: denies homicidal thoughts Hallucinations: no auditory hallucinations and no visual hallucinations Cognition: recent memory grossly intact Estimated Intelligence: average estimated intelligence Insight: + fair insight Judgement: + limited judgement Vital Signs (Past 24 Hours) Last Vital Signs Temp 36.6 C 01/18/20 06:37 Pulse 92 H 01/18/20 06:37 Resp 16 01/18/20 06:37 BP 132/92 01/18/20 06:37 Pulse Ox 98 01/09/20 16:30 Results & Data ([facility]) Laboratory Results Laboratory Results - last 24 hr 01/18/20 08:42 POC Glucose 107 H Current Inpatient Medications Current Inpatient Medications: Current Inpatient Medications Acetaminophen (Acetaminophen 325 Mg Tab) 650 mg PO Q4H PRN PRN Reason: Headache or Minor Fever Stop: 02/08/20 14:07 Al Hydrox/Mg Hydrox/Simethicone (Aluminum/Magnesium Susp 30 Ml Udc) 30 ml PO Q4H PRN PRN Reason: GI Upset Stop: 02/08/20 14:07 Bismuth Subsalicylate (Bismuth Subsalicylate Liqd 236 Ml) 15 ml PO PRN PRN PRN Reason: Loose Stool Stop: 02/08/20 14:07 Hydroxyzine HCl (Hydroxyzine Hcl 25 Mg Tab) 50 mg PO HSZ PRN PRN Reason: Insomnia Stop: 02/08/20 14:07 Hydroxyzine HCl (Hydroxyzine Hcl 25 Mg Tab) 25 mg PO Q4H PRN PRN Reason: Anxiety Stop: 02/08/20 14:07 Lorazepam (Lorazepam 1 Mg Tab) 1 mg PO HS MOHIT Stop: 02/12/20 21:59 Last Admin: 01/17/20 20:17 Dose: 1 mg Documented by: Magnesium Hydroxide (Magnesium Hydroxide Susp 30 Ml Udc) 30 ml PO DAILY PRN PRN Reason: Constipation Stop: 02/08/20 14:07 Metformin HCl (Metformin Hcl Er 500 Mg Tabcr) 500 mg PO BIDM MOHIT Stop: 02/08/20 17:44 Last Admin: 01/16/20 18:20 Dose: Not Given Documented by: Olanzapine (Olanzapine 2.5 Mg Tab) 2.5 mg PO BID MOHIT Stop: 02/17/20 20:59 Sodium Chloride (Sodium Chloride 0.65% Na Soln 45 Ml ([place])) 1 - 2 sprays NA PRN PRN PRN Reason: Nasal Dryness/Congestion Stop: 02/08/20 14:07 Venlafaxine HCl (Venlafaxine Hcl Xr 150 Mg Capxr) 150 mg PO QAM MOHIT Stop: 02/16/20 08:59 Last Admin: 01/18/20 08:54 Dose: 150 mg Documented by: Mental Health & Subst Abuse Tx Psychiatrist Name of Psychiatrist: Shubham Power PA-C Psychiatrist's Date of Appointment with Psychiatrist: 01/21/20 Time of Appointment with Psychiatrist: 11:00 a.m. Psychiatric Appointment Comment: [address] [place] [id number] Therapist Name of Therapist: Ric Ortiz Therapist's Date of Therapist Appointment: 01/23/20 Time of Therapist Appointment: 10:30 a.m. 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 Post Discharge Appointments Primary Care Physician Name Of Family Doctor: [facility] - Dr. Mark Kellogg Primary Care Provider Appointment Comment: [address], [address], [place] [address] Contact Information Discharge Discharge Address: [address] [place] [address] (1) UTI (urinary tract infection) Hematuria presence: without hematuria Urinary tract infection type: site unspecified Qualified Code(s): N39.0 - Urinary tract infection, site not specified
[2020-01-18] MEDS: metFORMIN HCL ER 500 MG TABCR PO SCH (17:36)
[2020-01-18] MEDS: LORazepam 1 MG TAB PO SCH (21:07)
[2020-01-19] MEDS: metFORMIN HCL ER 500 MG TABCR PO SCH ×2 (08:43→17:25)
[2020-01-19] MEDS: VENLAFAXINE HCL XR 150 MG CAPXR PO SCH (08:43)
--- NOTE | 2020-01-19 09:13 | Psychiatric Progress Note ---
Date of Service January 19, 2020 Impression / Recommendations Impression Per admitting provider: 64-year-old female admitted voluntarily on 01/09/2020 after presenting to the ED with worsening depression, anxiety, and inability to care for herself. 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 She also reported stress related to family discord involving her 3 adult children. She was admitted to [facility] in 10/2019 and was discharged with outpatient treatment, but symptoms worsened to the point that she is unable to care for herself at home, even with support from her family. She has had multiple medication adjustments/trials here. Inpatient psychiatric treatment is medically necessary as patient is still not attending to ADLs, has poor p.o. intake, is unable to function, and is not able to tolerate the stress associated with community re-entry at this time. Her family have expressed concerns that they are unable to manage her independently at home, and she may require additional in-home supports. Patient has demonstrated modest recompensation but remains severely impaired by her depression and unable to independently adequately meet her daily needs without significant direction and support. Pt did participate in a family support meeting via phone, which included her and sister - additional meeting may be necessary when p atient approaches readiness for discharge. She is certainly still unable to tolerate the stress of community re-entry, and remains at high risk of harm if discharged prematurely. (1) Severe depression: 01/08 -The patient has been admitted to the inpatient psychiatric service at [facility], a locked behavioral health unit. She has been referred for individual, group, activity and family therapy. She is also being closely monitored. -Begin venlafaxine ER 37.5 mg twice a day. 01/09-reviewed, Effexor XR appears to have been ordered for qam, she is currently refusing increase. 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 Zamora. 01/10--improved but seems to have some sedation and confusion either from Valium or resolving delirium component, doesn't appear to be progressing to catatonia. Need to establish baseline with family, ?head imaging. - agreed to increase to 75 mg po qam. 01/11 - Continue current medication regimen - venlafaxine 75mg increased this morning, and lorazepam 1mg BID. - Pt remains withdrawn and anxious, has not been attending to ADLs and requires significant encouragement to attend group programming. She has not showered, is still eating poorly, and has been dressing somewhat bizarrely (still wearing paper scrub shirt, but over other clothing - two layers of socks, etc). - Will gather collateral information and update sister, who has provided written collateral - patient has signed BRISA - Continue to update , patient will require family meeting when she is better able to participate - Continue MNPR for now 01/12 -Increase venlafaxine ER to 112.5 mg. -Reduce lorazepam to 0.5 mg every morning and 1 mg at bedtime to try to reduce daytime somnolence. Initiate risperidone 1 mg twice daily to target psychotic depression and thought blocking. Fasting labs ordered for tomorrow for monitoring on an atypical antipsychotic, as well as folate acid and vitamin B12 levels as part of her organic work-up for psychosis. Refer to PCP for brain MRI after discharge. -Continue private room due to psychosis, not yet ready to tolerate family meeting with . 01/13 -Continue venlafaxine ER 112.5 mg and risperidone 0.5 mg twice daily. If she can tolerate risperidone better without significant fatigue, then risperidone will be titrated further up to 1 mg twice a day. -Fasting lab results reviewed with the patient. Fasting glucose elevated at 107, triglycerides at 157 and cholesterol at 241 but all other values are WNL. Folate and vitamin B12 level are still pending. -Continue MNPR. 01/14 -Consolidate risperidone to bedtime to minimize daytime sedation. Continue to encourage patient to be out of her room participating in groups -Schedule family meeting with her and sister to begin discharge planning. Sister indicated interest in additional supports in the home, possibly mobile psych rehab or psych home health nursing. She would benefit from a PHP or IOP, unfortunately not available in our community. 01/15 -The patient numbers that she is feeling "more depressed" today, but adds that overall she knows that she is getting better and has been generally less depressed than at the time of admission. The patient also reports that she is tolerating her medications, including venlafaxine, well without any noted adverse effects. -Today, we will increase her dose of venlafaxine to venlafaxine XL 150 mg a day, first dose in the morning. -We are also changing her dose schedule for risperidone from 1 mg at bedtime to 0.25 mg twice a day and 0.5 mg at bedtime because today the patient says that she is feeling more depressed and somewhat more prone to rumination and excessive worrying than she had yesterday. -The patient appears to be responding favorably to a combination of venlafaxine and risperidone. We are in the process of making various adjustments and titrations to these medications. Her sleep is improved and her anxiety levels have diminished. However, the patient continues to tell us that she is depressed, and continues to require assistance encouragement to perform basic activities of daily living such as showering. 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 twice daily today and discontinue her daytime Risperdal. If we see evidence of improved response, we will plan to discontinue the nighttime Risperdal and continue with the olanzapine instead tomorrow. Reviewed history of diabetes and metabolic risks associated with atypical antipsychotics with patient. She reports her diabetes is typically well controlled at home. She has recently suffered a significant weight loss associated with her depression. She will need to watch weight trend on olanzapine however hopefully this is only a temporary intervention until her depression more adequately remits -She will continue the increased dose of Effexor as above with plan to continue titration pending need and tolerability. 01/17 -Affect modestly brighter today and appears a little less catastrophic and thought content. Additionally she is pending slowly increasing amounts of time in activities outside of room -She looks less restless and reports decreased rumination today, will discontinue the Risperdal completely and continue the olanzapine at 2.5 mg p.o. twice daily moving to morning and bedtime -Discussed consideration for dose further escalation of Effexor which remains well-tolerated but will defer decision to tomorrow at her request 01/18 - Will titrate venlafaxine to 187.5mg tomorrow morning. Continue olanzapine at 2.5mg BID at this time. Continue lorazepam at HS, though may consider ability to gradually taper dose as tolerated. - Family meeting via phone with and sister today. Pt reports it was anxiety-provoking, but has difficulty giving in-depth information regarding topics discussed - Pt does appear to be less thought blocked and is observed to be attending more spontaneously to ADLs, however it seems that she would still have great difficulty tolerating community re-entry at this time. (2) Severe anxiety: 01/08 -The patient has been given a medically necessary private room because of her extreme restlessness and need to pace. -Patient has been offered a trial of diazepam 5 mg by mouth. The context is that the patient's report that lorazepam 1 mg by mouth providers earlier in the day was helpful to her, but the benefit was not sustained. Accordingly, we will try diazepam because it is longer acting. -As tolerated, the patient will be given diazepam 2 mg 3 times daily as a standing dose medication. -Hydroxyzine is available as an as needed medication. She will also be eligible to receive hydroxyzine 50 mg at bedtime for sleep, and her third dose of diazepam 2 mg will be given near to the hours of sleep, and may serve as a soporific. 01/09--Valium trial as per Dr. Zamora, monitor gait given age and fall risk. 01/10--patient is requesting something less sedating, will replace with Ativan 1 mg po BID starting tonight and as valium clears. 01/11 - Continue as above - patient continues to be very anxious, delayed responses to questions. 01/12 -patient has spent the last 2 days in bed, refusing groups, and reports lethargy and sedation. Will decrease lorazepam as above, and start risperidone. 01/13 - Patient is spent more time outside to her room and reports she feels still anxious without any improvement. - Lorazepam 0.5 mg every morning and 1 mg nightly will be continued. 01/14 -Anxiety much improved, decrease lorazepam to 1 mg at bedtime. 01/15 -The patient reports that she feels that her anxiety and tendency to obsessively ruminate has seemed a bit today. She attributes this to being "homesick," but it may be that the consolidation of risperidone to 1 mg at bedtime (with no daytime dosages) may be contributing. The plan will be to continue lorazepam 1 mg at bedtime, and, as above, we are changing her schedule for risperidone from 1 mg at bedtime with no daytime coverage to risperidone 0.25 mg twice a day, 7 and 1400, and 0.5 mg at bedtime. 01/16 -Trial olanzapine as above which may be more effective for anxiolysis and reduced risk for akathisia as compared to the Risperdal 01/17 -Reporting mild improvement in anxiety yesterday. Continuing olanzapine as alternative to Risperdal as above. -As anxiety improves, will consider tapering of benzodiazepine to reduce sedation 01/18 - Continue as above - patient reporting increased anxiety today, specifically as it relates to her family meeting (3) UTI (urinary tract infection): 01/08 -Although the patient does not complain of any urinary tract infection symptoms, there were 4+ bacteria in her urine sample, and it was recommended in the emergency department that she be treated with an antibiotic empirically. -We will continue to monitor for symptoms of urinary tract infection 01/09--reviewed. UC pending. 01/10--corynbacter, no sensitivities, tolerating antibiotic, no urinary symptoms. 01/15 -No UTI symptoms noted or reported. Inventory Assets Strengths: Positive premorbid history. Strong supportive marriage. Intelligent. Needs: Improved mood. Risk Factors Assessment Male: No : Yes Do You Have Access To A Gun?: No Health Problems: Yes Mental Health Diagnoses: Yes Substance Use Disorders: No Previous Attempt: No Family History of Suicide: No Previous Psychiatric Hospitalization: Yes Hopelessness: Yes Smoker: No Protective Factors Assessment Uatsdin Beliefs: Yes : Yes Responsible for Young Children: No Employed: No Stable Relationships: Yes Supportive Family: Yes Good Rapport with Provider: No Absence of Any Risk Factors Above: No Interval History Identifying Information DELMI RAMIREZ is a 64-year-old F who currently lives in the [facility] with her . Has a history of anxiety and depression, and was admitted on 01/09/20 14:08 on a 201 voluntary commitment for intractable anxiety, inability to adequately care for her own physical needs, and severe depression. Chief Complaint "Just a little weary after that meeting." Review of Systems Notes Constitutional: admits to feeling tired after her family meeting Cardiovascular: denied Respiratory: denied Gastrointestinal: denied Neurological: denied Psychiatric: denies symptoms other than stated above Total of at least 10 systems reviewed, pertinent positives as above and in HPI. Sleep Information Total Hours of Sleep: 7.75 Sleep Comments: Patient slept 4.75 hours prior to 0000. Meal Information Percent Meal Consumed - Breakfast: 50 Percent Meal Consumed - Lunch: 50 Percent Meal Consumed - Dinner: 40 Nutrition Comment: pt. has poor appetite; not able to identify any foods that sound appealing at this time. Subjective Subjective Patient was seen & assessed and interval progress reviewed with treatment team. Staff report the patient is making improvements when compared to her significantly decompensated state at admission. The patient, on the other hand, is suggesting she is not able to observe much difference in her current condition. Pt participated in a family meeting via phone this morning, which included her and sister. Pt was seen following that meeting to assess progress since admission. Pt states she is feeling "just a little weary." She admits to feeling more anxious after the meeting, though had difficult describing some of the topics discussed in any meaningful detail. Pt did state one topic included, "having someone check in on me during the day." She had difficulty elaborating on this idea further. Only after she was asked about willingness for a immigration case manager did she begin to discuss the referrals that will be made on her behalf to offer additional support. Pt did not provide any other clear details from the meeting, but frequently stated she is now feeling "tired" and "weary." Pt did appear rather distracted during our conversation. Although she did respond to questions appropriately, she was frequently leaving the table to refill her water cup or throw away items. Pt did participate in discussion regarding medications. She reported willingness to continue titration of venlafaxine. She denied any concerns at this time regarding her medication regimen. Pt denied SI or other negative thoughts. She did admit "[the staff] says I look better, but I feel things are just the same." Pt was provided with several concrete examples verbalized by staff, in hopes she would be able to hear information from specific improvements. She had limited reaction to this information. Pt did sit back down at the table, and then stated "am I able to go rest now, I'm feeling very tired after that meeting." Pt was encouraged to seek staff to process events of the meeting or for answers to any questions that may develop. She denied other needs or concerns at this time. Physical Exam Psychiatric Orientation: alert, oriented x 3 and + guarded (appearing hesitant and somewhat disengaged/distracted) Apperance: appropriately dressed, appropriately groomed and appeared stated age Eye Contact: + fair eye contact Motor Behavior: steady gait and station, no abnormal motor movements and + psychomotor agitation frequently up and walking around during our conversation. Was up refilling her water cup several times, distracted with other activities Speech: normal rate/rhythm/volume of speech (brief responses to questions, limited spontaneous input) Affect: + depressed affect, + anxious affect and mood congruent with affect Mood: + depressed mood and + anxious mood Thought Process: clear/coherent thought process and + concrete thought process Thought blocking is no longer significant; however, patient's participation in conversation is rather concrete Thought Content: reality based without delusions Suicidal Thoughts: denies suicidal thoughts and denies suicidal intent Homicidal Thoughts: denies homicidal thoughts Hallucinations: no auditory hallucinations and no visual hallucinations Cognition: attention grossly intact (though seems somewhat distracted) and language grossly intact Estimated Intelligence: consistent with education level Insight: + impaired insight Judgement: + impaired judgement Vital Signs (Past 24 Hours) Last Vital Signs Temp 36.8 C 01/19/20 06:33 Pulse 81 01/19/20 06:33 Resp 16 01/19/20 06:33 BP 130/84 01/19/20 06:33 Pulse Ox 98 01/09/20 16:30 Results & Data ([facility]) Laboratory Results Laboratory Results - last 24 hr 01/19/20 08:35 POC Glucose 101 H Current Inpatient Medications Current Inpatient Medications: Current Inpatient Medications Acetaminophen (Acetaminophen 325 Mg Tab) 650 mg PO Q4H PRN PRN Reason: Headache or Minor Fever Stop: 02/08/20 14:07 Al Hydrox/Mg Hydrox/Simethicone (Aluminum/Magnesium Susp 30 Ml Udc) 30 ml PO Q4H PRN PRN Reason: GI Upset Stop: 02/08/20 14:07 Bismuth Subsalicylate (Bismuth Subsalicylate Liqd 236 Ml) 15 ml PO PRN PRN PRN Reason: Loose Stool Stop: 02/08/20 14:07 Hydroxyzine HCl (Hydroxyzine Hcl 25 Mg Tab) 50 mg PO HSZ PRN PRN Reason: Insomnia Stop: 02/08/20 14:07 Hydroxyzine HCl (Hydroxyzine Hcl 25 Mg Tab) 25 mg PO Q4H PRN PRN Reason: Anxiety Stop: 02/08/20 14:07 Lorazepam (Lorazepam 1 Mg Tab) 1 mg PO HS MOHIT Stop: 02/12/20 21:59 Last Admin: 01/18/20 21:07 Dose: 1 mg Documented by: Magnesium Hydroxide (Magnesium Hydroxide Susp 30 Ml Udc) 30 ml PO DAILY PRN PRN Reason: Constipation Stop: 02/08/20 14:07 Metformin HCl (Metformin Hcl Er 500 Mg Tabcr) 500 mg PO BIDM MOHIT Stop: 02/08/20 17:44 Last Admin: 01/19/20 08:43 Dose: 500 mg Documented by: Olanzapine (Olanzapine 2.5 Mg Tab) 2.5 mg PO BID MOHIT Stop: 02/17/20 20:59 Last Admin: 01/18/20 21:10 Dose: 2.5 mg Documented by: Sodium Chloride (Sodium Chloride 0.65% Na Soln 45 Ml ([place])) 1 - 2 sprays NA PRN PRN PRN Reason: Nasal Dryness/Congestion Stop: 02/08/20 14:07 Venlafaxine HCl (Venlafaxine Hcl Xr 150 Mg Capxr) 150 mg PO QAM MOHIT Stop: 02/16/20 08:59 Last Admin: 01/19/20 08:43 Dose: 150 mg Documented by: Mental Health & Subst Abuse Tx Psychiatrist Name of Psychiatrist: Shubham Power PA-C Psychiatrist's Date of Appointment with Psychiatrist: 01/21/20 Time of Appointment with Psychiatrist: 11:00 a.m. Psychiatric Appointment Comment: [address] [place] [address] Therapist Name of Therapist: Ric Ortiz Therapist's Date of Therapist Appointment: 01/23/20 Time of Therapist Appointment: 10:30 a.m. Therapy Appointment Comment: [address] [place] [address] Mercerizer Machine Operator Name of Mercerizer Machine Operator: . Post Discharge Appointments Primary Care Physician Name Of Family Doctor: [facility] - Dr. Mark Kellogg Primary Care Provider Appointment Comment: [address], [address], [place] [address] Contact Information Discharge Discharge Address: [address] [place] [address],[place] [address] (1) UTI (urinary tract infection) Hematuria presence: without hematuria Urinary tract infection type: site unspecified Qualified Code(s): N39.0 - Urinary tract infection, site not specified
[2020-01-19] MEDS: OLANZAPINE 2.5 MG TAB PO SCH ×2 (10:11→20:34)
[2020-01-19] MEDS: LORazepam 1 MG TAB PO SCH (20:34)
[2020-01-20] MEDS: VENLAFAXINE HCL XR 37.5 MG CAPXR PO SCH (08:47)
[2020-01-20] MEDS: VENLAFAXINE HCL XR 150 MG CAPXR PO SCH (08:47)
[2020-01-20] MEDS: metFORMIN HCL ER 500 MG TABCR PO SCH ×2 (08:47→17:18)
[2020-01-20] MEDS: OLANZAPINE 2.5 MG TAB PO SCH ×2 (08:48→21:13)
[2020-01-20] MEDS ORDERED: VENLAFAXINE HCL XR 75 MG CAPXR PO SCH (09:00)
--- NOTE | 2020-01-20 09:08 | Psychiatric Progress Note ---
Date of Service January 20, 2020 Impression / Recommendations Impression Per admitting provider: 64-year-old female admitted voluntarily on 01/09/2020 after presenting to the ED with worsening depression, anxiety, and inability to care for herself. 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 She also reported stress related to family discord involving her 3 adult children. She was admitted to [facility] in 10/2019 and was discharged with outpatient treatment, but symptoms worsened to the point that she is unable to care for herself at home, even with support from her family. She has had multiple medication adjustments/trials here. Inpatient psychiatric treatment is medically necessary as patient is still not attending to ADLs, has poor p.o. intake, is unable to function, and is not able to tolerate the stress associated with community re-entry at this time. Her family have expressed concerns that they are unable to manage her independently at home, and she may require additional in-home supports. Patient has demonstrated modest recompensation but remains severely impaired by her depression and unable to independently adequately meet her daily needs without significant direction and support. Pt did participate in a family support meeting via phone, which included her and sister - additional meeting may be necessary when p atient approaches readiness for discharge. She is certainly still unable to tolerate the stress of community re-entry, and remains at high risk of harm if discharged prematurely. (1) Severe depression: 01/08 -The patient has been admitted to the inpatient psychiatric service at [facility], a locked behavioral health unit. She has been referred for individual, group, activity and family therapy. She is also being closely monitored. -Begin venlafaxine ER 37.5 mg twice a day. 01/09-reviewed, Effexor XR appears to have been ordered for qam, she is currently refusing increase. 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 Zamora. 01/10--improved but seems to have some sedation and confusion either from Valium or resolving delirium component, doesn't appear to be progressing to catatonia. Need to establish baseline with family, ?head imaging. - agreed to increase to 75 mg po qam. 01/11 - Continue current medication regimen - venlafaxine 75mg increased this morning, and lorazepam 1mg BID. - Pt remains withdrawn and anxious, has not been attending to ADLs and requires significant encouragement to attend group programming. She has not showered, is still eating poorly, and has been dressing somewhat bizarrely (still wearing paper scrub shirt, but over other clothing - two layers of socks, etc). - Will gather collateral information and update sister, who has provided written collateral - patient has signed BRISA - Continue to update , patient will require family meeting when she is better able to participate - Continue MNPR for now 01/12 -Increase venlafaxine ER to 112.5 mg. -Reduce lorazepam to 0.5 mg every morning and 1 mg at bedtime to try to reduce daytime somnolence. Initiate risperidone 1 mg twice daily to target psychotic depression and thought blocking. Fasting labs ordered for tomorrow for monitoring on an atypical antipsychotic, as well as folate acid and vitamin B12 levels as part of her organic work-up for psychosis. Refer to PCP for brain MRI after discharge. -Continue private room due to psychosis, not yet ready to tolerate family meeting with . 01/13 -Continue venlafaxine ER 112.5 mg and risperidone 0.5 mg twice daily. If she can tolerate risperidone better without significant fatigue, then risperidone will be titrated further up to 1 mg twice a day. -Fasting lab results reviewed with the patient. Fasting glucose elevated at 107, triglycerides at 157 and cholesterol at 241 but all other values are WNL. Folate and vitamin B12 level are still pending. -Continue MNPR. 01/14 -Consolidate risperidone to bedtime to minimize daytime sedation. Continue to encourage patient to be out of her room participating in groups -Schedule family meeting with her and sister to begin discharge planning. Sister indicated interest in additional supports in the home, possibly mobile psych rehab or psych home health nursing. She would benefit from a PHP or IOP, unfortunately not available in our community. 01/15 -The patient numbers that she is feeling "more depressed" today, but adds that overall she knows that she is getting better and has been generally less depressed than at the time of admission. The patient also reports that she is tolerating her medications, including venlafaxine, well without any noted adverse effects. -Today, we will increase her dose of venlafaxine to venlafaxine XL 150 mg a day, first dose in the morning. -We are also changing her dose schedule for risperidone from 1 mg at bedtime to 0.25 mg twice a day and 0.5 mg at bedtime because today the patient says that she is feeling more depressed and somewhat more prone to rumination and excessive worrying than she had yesterday. -The patient appears to be responding favorably to a combination of venlafaxine and risperidone. We are in the process of making various adjustments and titrations to these medications. Her sleep is improved and her anxiety levels have diminished. However, the patient continues to tell us that she is depressed, and continues to require assistance encouragement to perform basic activities of daily living such as showering. 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 twice daily today and discontinue her daytime Risperdal. If we see evidence of improved response, we will plan to discontinue the nighttime Risperdal and continue with the olanzapine instead tomorrow. Reviewed history of diabetes and metabolic risks associated with atypical antipsychotics with patient. She reports her diabetes is typically well controlled at home. She has recently suffered a significant weight loss associated with her depression. She will need to watch weight trend on olanzapine however hopefully this is only a temporary intervention until her depression more adequately remits -She will continue the increased dose of Effexor as above with plan to continue titration pending need and tolerability. 01/17 -Affect modestly brighter today and appears a little less catastrophic and thought content. Additionally she is pending slowly increasing amounts of time in activities outside of room -She looks less restless and reports decreased rumination today, will discontinue the Risperdal completely and continue the olanzapine at 2.5 mg p.o. twice daily moving to morning and bedtime -Discussed consideration for dose further escalation of Effexor which remains well-tolerated but will defer decision to tomorrow at her request 01/18 - Will titrate venlafaxine to 187.5mg tomorrow morning. Continue olanzapine at 2.5mg BID at this time. Continue lorazepam at HS, though may consider ability to gradually taper dose as tolerated. - Family meeting via phone with and sister today. Pt reports it was anxiety-provoking, but has difficulty giving in-depth information regarding topics discussed - Pt does appear to be less thought blocked and is observed to be attending more spontaneously to ADLs, however it seems that she would still have great difficulty tolerating community re-entry at this time. 01/19 - Continue titrated dose of venlafaxine 187.5mg qAM - continue scheduled olanzapine 2.5mg BID, offering prn dose of olanzapine if needed for acute anxiety - Family meeting yesterday, overall positive - family supportive, patient willing for case management referral (2) Severe anxiety: 01/08 -The patient has been given a medically necessary private room because of her extreme restlessness and need to pace. -Patient has been offered a trial of diazepam 5 mg by mouth. The context is th at the patient's report that lorazepam 1 mg by mouth providers earlier in the day was helpful to her, but the benefit was not sustained. Accordingly, we will try diazepam because it is longer acting. -As tolerated, the patient will be given diazepam 2 mg 3 times daily as a standing dose medication. -Hydroxyzine is available as an as needed medication. She will also be eligible to receive hydroxyzine 50 mg at bedtime for sleep, and her third dose of diazepam 2 mg will be given near to the hours of sleep, and may serve as a soporific. 01/09--Valium trial as per Dr. Zamora, monitor gait given age and fall risk. 01/10--patient is requesting something less sedating, will replace with Ativan 1 mg po BID starting tonight and as valium clears. 01/11 - Continue as above - patient continues to be very anxious, delayed responses to questions. 01/12 -patient has spent the last 2 days in bed, refusing groups, and reports lethargy and sedation. Will decrease lorazepam as above, and start risperidone. 01/13 - Patient is spent more time outside to her room and reports she feels still anxious without any improvement. - Lorazepam 0.5 mg every morning and 1 mg nightly will be continued. 01/14 -Anxiety much improved, decrease lorazepam to 1 mg at bedtime. 01/15 -The patient reports that she feels that her anxiety and tendency to obsessively ruminate has seemed a bit today. She attributes this to being "homesick," but it may be that the consolidation of risperidone to 1 mg at bedtime (with no daytime dosages) may be contributing. The plan will be to continue lorazepam 1 mg at bedtime, and, as above, we are changing her schedule for risperidone from 1 mg at bedtime with no daytime coverage to risperidone 0.25 mg twice a day, 7 and 1400, and 0.5 mg at bedtime. 01/16 -Trial olanzapine as above which may be more effective for anxiolysis and reduced risk for akathisia as compared to the Risperdal 01/17 -Reporting mild improvement in anxiety yesterday. Continuing olanzapine as alternative to Risperdal as above. -As anxiety improves, will consider tapering of benzodiazepine to reduce sedation 01/18 - Continue as above - patient reporting increased anxiety today, specifically as it relates to her family meeting 01/19 - Continue olanzapine 2.5mg BID scheduled, will have an additional prn dose available for acute anxiety as needed (3) UTI (urinary tract infection): 01/08 -Although the patient does not complain of any urinary tract infection symptoms, there were 4+ bacteria in her urine sample, and it was recommended in the emergency department that she be treated with an antibiotic empirically. -We will continue to monitor for symptoms of urinary tract infection 01/09--reviewed. UC pending. 01/10--corynbacter, no sensitivities, tolerating antibiotic, no urinary symptoms. 01/15 -No UTI symptoms noted or reported. Inventory Assets Strengths: Positive premorbid history. Strong supportive marriage. Intelligent. Needs: Improved mood. Risk Factors Assessment Male: No : Yes Do You Have Access To A Gun?: No Health Problems: Yes Mental Health Diagnoses: Yes Substance Use Disorders: No Previous Attempt: No Family History of Suicide: No Previous Psychiatric Hospitalization: Yes Hopelessness: Yes Smoker: No Protective Factors Assessment Adventist Beliefs: Yes : Yes Responsible for Young Children: No Employed: No Stable Relationships: Yes Supportive Family: Yes Good Rapport with Provider: No Absence of Any Risk Factors Above: No Interval History Identifying Information DELMI RAMIREZ is a 64-year-old F who currently lives in the [place] area with her . Has a history of anxiety and depression, and was admitted on 01/09/20 14:08 on a 201 voluntary commitment for intractable anxiety, inability to adequately care for her own physical needs, and severe depression. Chief Complaint "I'm tired. Tired and anxious, so I was just taking a break." Review of Systems Notes Constitutional: reports fatigue Cardiovascular: denied Respiratory: denied Gastrointestinal: denied Neurological: denied Psychiatric: denies symptoms other than stated above Total of at least 10 systems reviewed, pertinent positives as above and in HPI. Sleep Information Total Hours of Sleep: 7.75 Sleep Comments: pt on q-15 minute checks Meal Information Percent Meal Consumed - Breakfast: 50 Percent Meal Consumed - Lunch: 100 Percent Meal Consumed - Dinner: 25 Nutrition Comment: pt. has poor appetite; not able to identify any foods that sound appealing at this time. Subjective Subjective Patient was seen & assessed and interval progress reviewed with nursing and social work. Staff report the patient has been attending more groups, but with limited participation. She reported 'feeling she needed some downtime' last evening, so did not attend self-awareness group. It is anticipated that a U intake will occur today in order to begin case management services. Pt was seen today to assess progress since admission. Pt states she is feeling "tired" today. She reports "tired and anxious, so I was just taking a break." Pt states that she has been participating in groups so far this morning, but needed a rest. Pt is not able to identify a specific source of the anxiety. We did discuss potential to titrate olanzapine to offer an additional dose of 2.5mg in the afternoon. Pt was hesitant to make the dose scheduled, but did agree to having a prn dose available for acute anxiety as needed. Pt denies SI/HI and reports improvement in attendance to ADLs, but continues to be rather reserved and withdrawn during the day. Pt denied other needs or concerns at this time. Physical Exam Psychiatric Orientation: alert, oriented x 3 and + guarded (superficially cooperative ) Apperance: appropriately dressed, appropriately groomed and appeared stated age Eye Contact: + fair eye contact Motor Behavior: no abnormal motor movements (observed while laying in bed) Speech: normal rate/rhythm/volume of speech (but rather brief responses to questions) Affect: + depressed affect, + anxious affect and mood congruent with affect Mood: + depressed mood and + anxious mood Thought Process: goal directed thought process and + concrete thought process Thought Content: reality based without delusions; no hopelessness Suicidal Thoughts: denies suicidal thoughts and denies suicidal intent Homicidal Thoughts: denies homicidal thoughts Hallucinations: no auditory hallucinations and no visual hallucinations Cognition: attention grossly intact and language grossly intact Estimated Intelligence: consistent with education level Insight: + impaired insight Judgement: + impaired judgement Vital Signs (Past 24 Hours) Last Vital Signs Temp 36.7 C 01/20/20 06:37 Pulse 85 01/20/20 06:37 Resp 16 01/20/20 06:37 BP 121/83 01/20/20 06:37 Pulse Ox 98 01/09/20 16:30 Results & Data ([facility]) Laboratory Results Laboratory Results - last 24 hr 01/20/20 08:16 POC Glucose 106 H Current Inpatient Medications Current Inpatient Medications: Current Inpatient Medications Acetaminophen (Acetaminophen 325 Mg Tab) 650 mg PO Q4H PRN PRN Reason: Headache or Minor Fever Stop: 02/08/20 14:07 Al Hydrox/Mg Hydrox/Simethicone (Aluminum/Magnesium Susp 30 Ml Udc) 30 ml PO Q4H PRN PRN Reason: GI Upset Stop: 02/08/20 14:07 Bismuth Subsalicylate (Bismuth Subsalicylate Liqd 236 Ml) 15 ml PO PRN PRN PRN Reason: Loose Stool Stop: 02/08/20 14:07 Hydroxyzine HCl (Hydroxyzine Hcl 25 Mg Tab) 50 mg PO HSZ PRN PRN Reason: Insomnia Stop: 02/08/20 14:07 Hydroxyzine HCl (Hydroxyzine Hcl 25 Mg Tab) 25 mg PO Q4H PRN PRN Reason: Anxiety Stop: 02/08/20 14:07 Lorazepam (Lorazepam 1 Mg Tab) 1 mg PO HS MOHIT Stop: 02/12/20 21:59 Last Admin: 01/19/20 20:34 Dose: 1 mg Documented by: Magnesium Hydroxide (Magnesium Hydroxide Susp 30 Ml Udc) 30 ml PO DAILY PRN PRN Reason: Constipation Stop: 02/08/20 14:07 Metformin HCl (Metformin Hcl Er 500 Mg Tabcr) 500 mg PO BIDM MOHIT Stop: 02/08/20 17:44 Last Admin: 01/20/20 08:47 Dose: 500 mg Documented by: Olanzapine (Olanzapine 2.5 Mg Tab) 2.5 mg PO BID MOHIT Stop: 02/17/20 20:59 Last Admin: 01/20/20 08:48 Dose: 2.5 mg Documented by: Sodium Chloride (Sodium Chloride 0.65% Na Soln 45 Ml (Angelina)) 1 - 2 sprays NA PRN PRN PRN Reason: Nasal Dryness/Congestion Stop: 02/08/20 14:07 Venlafaxine HCl (Venlafaxine Hcl Xr 37.5 Mg Capxr) 37.5 mg PO QAM MOHIT Stop: 02/19/20 08:59 Last Admin: 01/20/20 08:47 Dose: 37.5 mg Documented by: Venlafaxine HCl (Venlafaxine Hcl Xr 150 Mg Capxr) 150 mg PO QAM MOHIT Stop: 02/19/20 08:59 Last Admin: 01/20/20 08:47 Dose: 150 mg Documented by: Mental Health & Subst Abuse Tx Psychiatrist Name of Psychiatrist: Shubham Power PA-C Psychiatrist's Date of Appointment with Psychiatrist: 01/21/20 Time of Appointment with Psychiatrist: 11:00 a.m. Psychiatric Appointment Comment: [address] [place] [address] Therapist Name of Therapist: Ric Ortiz Therapist's Date of Therapist Appointment: 01/23/20 Time of Therapist Appointment: 10:30 a.m. Therapy Appointment Comment: [address] [facility] [address] [place], [place] [address] Chief Medical Technologist Name of Chief Medical Technologist: . Post Discharge Appointments Primary Care Physician Name Of Family Doctor: [facility] - Dr. Mark Kellogg Primary Care Provider Appointment Comment: [address], [address], [place], [place] [address] Contact Information Discharge Discharge Address: [address] [place] [address] (1) UTI (urinary tract infection) Hematuria presence: without hematuria Urinary tract infection type: site unspecified Qualified Code(s): N39.0 - Urinary tract infection, site not specified
[2020-01-20] MEDS ORDERED: OLANZAPINE 2.5 MG TAB PO PRN (11:27)
[2020-01-20] MEDS: LORazepam 1 MG TAB PO SCH (21:13)
[2020-01-21] MEDS: VENLAFAXINE HCL XR 37.5 MG CAPXR PO SCH (09:01)
[2020-01-21] MEDS: OLANZAPINE 2.5 MG TAB PO SCH ×2 (09:01→21:15)
[2020-01-21] MEDS: VENLAFAXINE HCL XR 150 MG CAPXR PO SCH (09:01)
[2020-01-21] MEDS: metFORMIN HCL ER 500 MG TABCR PO SCH ×2 (09:01→17:30)
--- NOTE | 2020-01-21 09:07 | Psychiatric Progress Note ---
Date of Service January 21, 2020 Impression / Recommendations Impression Per admitting provider: 64-year-old female admitted voluntarily on 01/09/2020 after presenting to the ED with worsening depression, anxiety, and inability to care for herself. 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 She also reported stress related to family discord involving her 3 adult children. She was admitted to [facility] in 10/2019 and was discharged with outpatient treatment, but symptoms worsened to the point that she is unable to care for herself at home, even with support from her family. She has had multiple medication adjustments/trials here. Inpatient psychiatric treatment is medically necessary as patient is still not attending to ADLs, has poor p.o. intake, is unable to function, and is not able to tolerate the stress associated with community re-entry at this time. Her family have expressed concerns that they are unable to manage her independently at home, and she may require additional in-home supports. Patient has demonstrated modest recompensation but remains severely impaired by her depression and unable to independently adequately meet her daily needs without significant direction and support. Pt did participate in a family support meeting via phone, which included her and sister - additional meeting may be necessary when p atient approaches readiness for discharge, as patient is now declining the case management services she initially agreed to. She is certainly still unable to tolerate the stress of community re-entry, and remains at high risk of harm if discharged prematurely. (1) Severe depression: 01/08 -The patient has been admitted to the inpatient psychiatric service at [facility], a locked behavioral health unit. She has been referred for individual, group, activity and family therapy. She is also being closely monitored. -Begin venlafaxine ER 37.5 mg twice a day. 01/09-reviewed, Effexor XR appears to have been ordered for qam, she is currently refusing increase. 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 Zamora. 01/10--improved but seems to have some sedation and confusion either from Valium or resolving delirium component, doesn't appear to be progressing to catatonia. Need to establish baseline with family, ?head imaging. - agreed to increase to 75 mg po qam. 01/11 - Continue current medication regimen - venlafaxine 75mg increased this morning, and lorazepam 1mg BID. - Pt remains withdrawn and anxious, has not been attending to ADLs and requires significant encouragement to attend group programming. She has not showered, is still eating poorly, and has been dressing somewhat bizarrely (still wearing paper scrub shirt, but over other clothing - two layers of socks, etc). - Will gather collateral information and update sister, who has provided written collateral - patient has signed BRISA - Continue to update , patient will require family meeting when she is better able to participate - Continue MNPR for now 01/12 -Increase venlafaxine ER to 112.5 mg. -Reduce lorazepam to 0.5 mg every morning and 1 mg at bedtime to try to reduce daytime somnolence. Initiate risperidone 1 mg twice daily to target psychotic depression and thought blocking. Fasting labs ordered for tomorrow for monitoring on an atypical antipsychotic, as well as folate acid and vitamin B12 levels as part of her organic work-up for psychosis. Refer to PCP for brain MRI after discharge. -Continue private room due to psychosis, not yet ready to tolerate family meeting with . 01/13 -Continue venlafaxine ER 112.5 mg and risperidone 0.5 mg twice daily. If she can tolerate risperidone better without significant fatigue, then risperidone will be titrated further up to 1 mg twice a day. -Fasting lab results reviewed with the patient. Fasting glucose elevated at 107, triglycerides at 157 and cholesterol at 241 but all other values are WNL. Folate and vitamin B12 level are still pending. -Continue MNPR. 01/14 -Consolidate risperidone to bedtime to minimize daytime sedation. Continue to encourage patient to be out of her room participating in groups -Schedule family meeting with her and sister to begin discharge planning. Sister indicated interest in additional supports in the home, possibly mobile psych rehab or psych home health nursing. She would benefit from a PHP or IOP, unfortunately not available in our community. 01/15 -The patient numbers that she is feeling "more depressed" today, but adds that overall she knows that she is getting better and has been generally less depressed than at the time of admission. The patient also reports that she is tolerating her medications, including venlafaxine, well without any noted adverse effects. -Today, we will increase her dose of venlafaxine to venlafaxine XL 150 mg a day, first dose in the morning. -We are also changing her dose schedule for risperidone from 1 mg at bedtime to 0.25 mg twice a day and 0.5 mg at bedtime because today the patient says that she is feeling more depressed and somewhat more prone to rumination and excessive worrying than she had yesterday. -The patient appears to be responding favorably to a combination of venlafaxine and risperidone. We are in the process of making various adjustments and titrations to these medications. Her sleep is improved and her anxiety levels have diminished. However, the patient continues to tell us that she is depressed, and continues to require assistance encouragement to perform basic activities of daily living such as showering. 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 twice daily today and discontinue her daytime Risperdal. If we see evidence of improved response, we will plan to discontinue the nighttime Risperdal and continue with the olanzapine instead tomorrow. Reviewed history of diabetes and metabolic risks associated with atypical antipsychotics with patient. She reports her diabetes is typically well controlled at home. She has recently suffered a significant weight loss associated with her depression. She will need to watch weight trend on olanzapine however hopefully this is only a temporary intervention until her depression more adequately remits -She will continue the increased dose of Effexor as above with plan to continue titration pending need and tolerability. 01/17 -Affect modestly brighter today and appears a little less catastrophic and thought content. Additionally she is pending slowly increasing amounts of time in activities outside of room -She looks less restless and reports decreased rumination today, will discontinue the Risperdal completely and continue the olanzapine at 2.5 mg p.o. twice daily moving to morning and bedtime -Discussed consideration for dose further escalation of Effexor which remains well-tolerated but will defer decision to tomorrow at her request 01/18 - Will titrate venlafaxine to 187.5mg tomorrow morning. Continue olanzapine at 2.5mg BID at this time. Continue lorazepam at HS, though may consider ability to gradually taper dose as tolerated. - Family meeting via phone with and sister today. Pt reports it was anxiety-provoking, but has difficulty giving in-depth information regarding topics discussed - Pt does appear to be less thought blocked and is observed to be attending more spontaneously to ADLs, however it seems that she would still have great difficulty tolerating community re-entry at this time. 01/19 - Continue titrated dose of venlafaxine 187.5mg qAM - continue scheduled olanzapine 2.5mg BID, offering prn dose of olanzapine if needed for acute anxiety - Family meeting yesterday, overall positive - family supportive, patient willing for case management referral 01/20 - Continue venlafaxine 187.5mg, patient declining further titration at this time. Will reduce lorazepam to 0.5mg qHS. Continue olanzapine 2.5mg BID with an additional dose as needed for anxiety - Pt met with [facility] yesterday, but is now declining case management referral without clear explanation - Pt seems to be decompensating recently, as she has been more isolative and has attended groups less consistently - now refusing outpatient recommendations (2) Severe anxiety: 01/08 -The patient has been given a medically necessary private room because of her extreme restlessness and need to pace. -Patient has been offered a trial of diazepam 5 mg by mouth. The context is that the patient's report that lorazepam 1 mg by mouth providers earlier in the day was helpful to her, but the benefit was not sustained. Accordingly, we will try diazepam because it is longer acting. -As tolerated, the patient will be given diazepam 2 mg 3 times daily as a standing dose medication. -Hydroxyzine is available as an as needed medication. She will also be eligible to receive hydroxyzine 50 mg at bedtime for sleep, and her third dose of diazepam 2 mg will be given near to the hours of sleep, and may serve as a soporific. 01/09--Valium trial as per Dr. Zamora, monitor gait given age and fall risk. 01/10--patient is requesting something less sedating, will replace with Ativan 1 mg po BID starting tonight and as valium clears. 01/11 - Continue as above - patient continues to be very anxious, delayed responses to questions. 01/12 -patient has spent the last 2 days in bed, refusing groups, and reports lethargy and sedation. Will decrease lorazepam as above, and start risperidone. 01/13 - Patient is spent more time outside to her room and reports she feels still anxious without any improvement. - Lorazepam 0.5 mg every morning and 1 mg nightly will be continued. 01/14 -Anxiety much improved, decrease lorazepam to 1 mg at bedtime. 01/15 -The patient reports that she feels that her anxiety and tendency to obsessively ruminate has seemed a bit today. She attributes this to being "homesick," but it may be that the consolidation of risperidone to 1 mg at bedtime (with no daytime dosages) may be contributing. The plan will be to continue lorazepam 1 mg at bedtime, and, as above, we are changing her schedule for risperidone from 1 mg at bedtime with no daytime coverage to risperidone 0.25 mg twice a day, 7 and 1400, and 0.5 mg at bedtime. 01/16 -Trial olanzapine as above which may be more effective for anxiolysis and reduced risk for akathisia as compared to the Risperdal 01/17 -Reporting mild improvement in anxiety yesterday. Continuing olanzapine as alternative to Risperdal as above. -As anxiety improves, will consider tapering of benzodiazepine to reduce sedation 01/18 - Continue as above - patient reporting increased anxiety today, specifically as it relates to her family meeting 01/19 - Continue olanzapine 2.5mg BID scheduled, will have an additional prn dose available for acute anxiety as needed (3) UTI (urinary tract infection): 01/08 -Although the patient does not complain of any urinary tract infection symptoms, there were 4+ bacteria in her urine sample, and it was recommended in the emergency department that she be treated with an antibiotic empirically. -We will continue to monitor for symptoms of urinary tract infection 01/09--reviewed. UC pending. 01/10--corynbacter, no sensitivities, tolerating antibiotic, no urinary symptoms. 01/15 -No UTI symptoms noted or reported. Inventory Assets Strengths: Positive premorbid history. Strong supportive marriage. Intelligent. Needs: Improved mood. Risk Factors Assessment Male: No : Yes Do You Have Access To A Gun?: No Health Problems: Yes Mental Health Diagnoses: Yes Substance Use Disorders: No Previous Attempt: No Family History of Suicide: No Previous Psychiatric Hospitalization: Yes Hopelessness: Yes Smoker: No Protective Factors Assessment Mormon Beliefs: Yes : Yes Responsible for Young Children: No Employed: No Stable Relationships: Yes Supportive Family: Yes Good Rapport with Provider: No Absence of Any Risk Factors Above: No Interval History Identifying Information DELMI RAMIREZ is a 64-year-old F who currently lives in the [place] area with her . Has a history of anxiety and depression, and was admitted on 01/09/20 14:08 on a 201 voluntary commitment for intractable anxiety, inability to adequately care for her own physical needs, and severe depression. Chief Complaint "Ok." Review of Systems Notes Constitutional: reports an episodes of dizziness this morning Cardiovascular: denied Respiratory: denied Gastrointestinal: denied Neurological: denied Psychiatric: denies symptoms other than stated above Total of at least 10 systems reviewed, pertinent positives as above and in HPI. Sleep Information Total Hours of Sleep: 9 Sleep Comments: pt on q-15 minute checks Meal Information Percent Meal Consumed - Breakfast: 25 Percent Meal Consumed - Lunch: 25 Percent Meal Consumed - Dinner: 100 Nutrition Comment: pt. has poor appetite; not able to identify any foods that sound appealing at this time. Subjective Subjective Patient was seen & assessed and interval progress reviewed with treatment team. Staff report the patient had not been attending groups as frequently, and did inform staff that she felt disconnected from the group. Pt rated her mood a 5/10 last evening and refused community meeting this morning. Staff state the patient had reported feeling dizzy and was asked to sit down and hydrate. Pt then walked back to her room of her own accord without reported issue and laid in bed. Pt was seen today to assess progress since admission. Pt states she is "ok" and then shares that she recently had a dizzy spell. She states "that's the first that ever happened." Pt was reminded that sister has mentioned some gait instability recently, and patient states "oh yeah, I guess she did mention that." Pt denied any other associated symptoms such as vision changes, leg weakness, or pain/numbness/tingling. Pt denies other physical concerns presently. Pt initially stated her mood is "ok", but was challenged on this as her behavior has been suggesting significant depression. The patient states "I guess I'm still struggling." Pt was encouraged to attend group programming, even if hesitant to participate in great detail. Pt was asked if there were any barriers to her attending groups, but denied this simply stating "I'm trying." She's stating that comments she made yesterday suggesting she felt ostracized from the group were "not accurate" - despite her statements being clearly passed along to staff this morning in report. Pt admits that she declined case management services yesterday, stating that she felt overwhelmed by the questions. Pt is now stating she does not understand what the service is or why it is recommended, despite this being talked about in detail during her family meeting. The explanation was reviewed again today and patient was encouraged to ask any additional questions to help her feel more comfortable with what the service can offer to her. Pt denied SI, states she is eating and sleeping well. She has not, however, showered in several days and is rather withdrawn to her room. Pt denied other needs or concerns at this time. Physical Exam Psychiatric Orientation: alert, oriented x 3 and + guarded (rather uncooperative, limited participation in conversation) Apperance: appropriately dressed and + disheveled (appearing somewhat unkempt, likely has not showered in several days) Eye Contact: + fair eye contact Motor Behavior: no abnormal motor movements (observed while laying in bed) Speech: normal rate/rhythm/volume of speech (timly response to questions, but rather brief answers to questions) Affect: + depressed affect (severely depressed affect) Mood: + depressed mood (initially stated her mood was "ok", then admitted "I'm still struggling") and + anxious mood Thought Process: + concrete thought process Thought Content: reality based without delusions Suicidal Thoughts: denies suicidal thoughts and denies suicidal intent Homicidal Thoughts: denies homicidal thoughts Hallucinations: no auditory hallucinations and no visual hallucinations Cognition: attention grossly intact and language grossly intact Estimated Intelligence: consistent with education level Insight: + limited insight Judgement: + limited judgement Vital Signs (Past 24 Hours) Last Vital Signs Temp 36.7 C 01/21/20 06:36 Pulse 102 H 01/21/20 06:36 Resp 16 01/21/20 06:36 BP 129/83 01/21/20 06:36 Pulse Ox 98 01/09/20 16:30 Results & Data ([facility]) Laboratory Results Laboratory Results - last 24 hr 01/21/20 08:02 POC Glucose 99 Current Inpatient Medications Current Inpatient Medications: Current Inpatient Medications Acetaminophen (Acetaminophen 325 Mg Tab) 650 mg PO Q4H PRN PRN Reason: Headache or Minor Fever Stop: 02/08/20 14:07 Al Hydrox/Mg Hydrox/Simethicone (Aluminum/Magnesium Susp 30 Ml Udc) 30 ml PO Q4H PRN PRN Reason: GI Upset Stop: 02/08/20 14:07 Bismuth Subsalicylate (Bismuth Subsalicylate Liqd 236 Ml) 15 ml PO PRN PRN PRN Reason: Loose Stool Stop: 02/08/20 14:07 Hydroxyzine HCl (Hydroxyzine Hcl 25 Mg Tab) 50 mg PO HSZ PRN PRN Reason: Insomnia Stop: 02/08/20 14:07 Hydroxyzine HCl (Hydroxyzine Hcl 25 Mg Tab) 25 mg PO Q4H PRN PRN Reason: Anxiety Stop: 02/08/20 14:07 Lorazepam (Lorazepam 1 Mg Tab) 1 mg PO HS MOHIT Stop: 02/12/20 21:59 Last Admin: 01/20/20 21:13 Dose: 1 mg Documented by: Magnesium Hydroxide (Magnesium Hydroxide Susp 30 Ml Udc) 30 ml PO DAILY PRN PRN Reason: Constipation Stop: 02/08/20 14:07 Metformin HCl (Metformin Hcl Er 500 Mg Tabcr) 500 mg PO BIDM MOHIT Stop: 02/08/20 17:44 Last Admin: 01/21/20 09:01 Dose: 500 mg Documented by: Olanzapine (Olanzapine 2.5 Mg Tab) 2.5 mg PO BID MOHIT Stop: 02/17/20 20:59 Last Admin: 01/21/20 09:01 Dose: 2.5 mg Documented by: Olanzapine (Olanzapine 2.5 Mg Tab) 2.5 mg PO DAILY PRN PRN Reason: anxiety/thought blocking Stop: 02/20/20 08:59 Sodium Chloride (Sodium Chloride 0.65% Na Soln 45 Ml (Ronda)) 1 - 2 sprays NA PRN PRN PRN Reason: Nasal Dryness/Congestion Stop: 02/08/20 14:07 Venlafaxine HCl (Venlafaxine Hcl Xr 37.5 Mg Capxr) 37.5 mg PO QAM MOHIT Stop: 02/19/20 08:59 Last Admin: 01/21/20 09:01 Dose: 37.5 mg Documented by: Venlafaxine HCl (Venlafaxine Hcl Xr 150 Mg Capxr) 150 mg PO QAM MOHIT Stop: 02/19/20 08:59 Last Admin: 01/21/20 09:01 Dose: 150 mg Documented by: Mental Health & Subst Abuse Tx Psychiatrist Name of Psychiatrist: Shubham Power PA-C Psychiatrist's Date of Appointment with Psychiatrist: 01/28/20 Time of Appointment with Psychiatrist: 10:30am Psychiatric Appointment Comment: [address], [place] [address] Therapist Name of Therapist: Ric Ortiz Therapist's Date of Therapist Appointment: 01/23/20 Time of Therapist Appointment: 10:30 a.m. Therapy Appointment Comment: [address] [place] [address] Thresher [facility]roomcorn Name of Thresher Broomcorn: . Post Discharge Appointments Primary Care Physician Name Of Family Doctor: [facility] - Dr. Mark Kellogg Primary Care Provider Appointment Comment: [address], [address], [place] [address] Contact Information Discharge Discharge Address: [address] [place] [address],[place] [address] (1) UTI (urinary tract infection) Hematuria presence: without hematuria Urinary tract infection type: site unspecified Qualified Code(s): N39.0 - Urinary tract infection, site not specified
[2020-01-21] MEDS: LORazepam 0.5 MG TAB PO SCH (21:15)
[2020-01-22] MEDS: metFORMIN HCL ER 500 MG TABCR PO SCH ×2 (08:57→17:11)
[2020-01-22] MEDS: VENLAFAXINE HCL XR 37.5 MG CAPXR PO SCH (08:57)
[2020-01-22] MEDS: OLANZAPINE 2.5 MG TAB PO SCH ×2 (08:57→21:17)
[2020-01-22] MEDS: VENLAFAXINE HCL XR 150 MG CAPXR PO SCH (08:57)
--- NOTE | 2020-01-22 08:58 | Psychiatric Progress Note ---
Date of Service January 22, 2020 Impression / Recommendations Impression Per admitting provider: 64-year-old female admitted voluntarily on 01/09/2020 after presenting to the ED with worsening depression, anxiety, and inability to care for herself. 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 She also reported stress related to family discord involving her 3 adult children. She was admitted to [facility] in 10/2019 and was discharged with outpatient treatment, but symptoms worsened to the point that she is unable to care for herself at home, even with support from her family. She has had multiple medication adjustments/trials here. Inpatient psychiatric treatment is medically necessary as patient is still not attending to ADLs, has poor p.o. intake, is unable to function, and is not able to tolerate the stress associated with community re-entry at this time. Her family have expressed concerns that they are unable to manage her independently at home, and she may require additional in-home supports. Patient has demonstrated modest re-compensation but remains severely impaired by her depression and unable to independently adequately meet her daily needs without significant direction and support. Pt did participate in a family support meeting via phone, which included her and sister. reports it sounds as though the patient has made improvements and he feels comfortable with her being discharged in the next few days. Pt states she is now agreeable with case management services and will complete her intake this afternoon with staff assistance. She is certainly still unable to tolerate the stress of community re-entry, and remains at high risk of harm if discharged prematurely. (1) Severe depression: 01/08 -The patient has been admitted to the inpatient psychiatric service at [facility], a locked behavioral health unit. She has been referred for individual, group, activity and family therapy. She is also being closely monitored. -Begin venlafaxine ER 37.5 mg twice a day. 01/09-reviewed, Effexor XR appears to have been ordered for qam, she is currently refusing increase. 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 Zamora. 01/10--improved but seems to have some sedation and confusion either from Valium or resolving delirium component, doesn't appear to be progressing to catatonia. Need to establish baseline with family, ?head imaging. - agreed to increase to 75 mg po qam. 01/11 - Continue current medication regimen - venlafaxine 75mg increased this morning, and lorazepam 1mg BID. - Pt remains withdrawn and anxious, has not been attending to ADLs and requires significant encouragement to attend group programming. She has not showered, is still eating poorly, and has been dressing somewhat bizarrely (still wearing paper scrub shirt, but over other clothing - two layers of socks, etc). - Will gather collateral information and update sister, who has provided written collateral - patient has signed BRISA - Continue to update , patient will require family meeting when she is better able to participate - Continue MNPR for now 01/12 -Increase venlafaxine ER to 112.5 mg. -Reduce lorazepam to 0.5 mg every morning and 1 mg at bedtime to try to reduce daytime somnolence. Initiate risperidone 1 mg twice daily to target psychotic depression and thought blocking. Fasting labs ordered for tomorrow for monitoring on an atypical antipsychotic, as well as folate acid and vitamin B12 levels as part of her organic work-up for psychosis. Refer to PCP for brain MRI after discharge. -Continue private room due to psychosis, not yet ready to tolerate family meeting with . 01/13 -Continue venlafaxine ER 112.5 mg and risperidone 0.5 mg twice daily. If she can tolerate risperidone better without significant fatigue, then risperidone will be titrated further up to 1 mg twice a day. -Fasting lab results reviewed with the patient. Fasting glucose elevated at 107, triglycerides at 157 and cholesterol at 241 but all other values are WNL. Folate and vitamin B12 level are still pending. -Continue MNPR. 01/14 -Consolidate risperidone to bedtime to minimize daytime sedation. Continue to encourage patient to be out of her room participating in groups -Schedule family meeting with her and sister to begin discharge planning. Sister indicated interest in additional supports in the home, possib ly mobile psych rehab or psych home health nursing. She would benefit from a PHP or IOP, unfortunately not available in our community. 01/15 -The patient numbers that she is feeling "more depressed" today, but adds that overall she knows that she is getting better and has been generally less depressed than at the time of admission. The patient also reports that she is tolerating her medications, including venlafaxine, well without any noted adverse effects. -Today, we will increase her dose of venlafaxine to venlafaxine XL 150 mg a day, first dose in the morning. -We are also changing her dose schedule for risperidone from 1 mg at bedtime to 0.25 mg twice a day and 0.5 mg at bedtime because today the patient says that she is feeling more depressed and somewhat more prone to rumination and excessive worrying than she had yesterday. -The patient appears to be responding favorably to a combination of venlafaxine and risperidone. We are in the process of making various adjustments and titrations to these medications. Her sleep is improved and her anxiety levels have diminished. However, the patient continues to tell us that she is depressed, and continues to require assistance encouragement to perform basic activities of daily living such as showering. 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 twice daily today and discontinue her daytime Risperdal. If we see evidence of improved response, we will plan to discontinue the nighttime Risperdal and continue with the olanzapine instead tomorrow. Reviewed history of diabetes and metabolic risks associated with atypical antipsychotics with patient. She reports her diabetes is typically well controlled at home. She has recently suffered a si gnificant weight loss associated with her depression. She will need to watch weight trend on olanzapine however hopefully this is only a temporary intervention until her depression more adequately remits -She will continue the increased dose of Effexor as above with plan to continue titration pending need and tolerability. 01/17 -Affect modestly brighter today and appears a little less catastrophic and thought content. Additionally she is pending slowly increasing amounts of time in activities outside of room -She looks less restless and reports decreased rumination today, will discontinue the Risperdal completely and continue the olanzapine at 2.5 mg p.o. twice daily moving to morning and bedtime -Discussed consideration for dose further escalation of Effexor which remains well-tolerated but will defer decision to tomorrow at her request 01/18 - Will titrate venlafaxine to 187.5mg tomorrow morning. Continue olanzapine at 2.5mg BID at this time. Continue lorazepam at HS, though may consider ability to gradually taper dose as tolerated. - Family meeting via phone with and sister today. Pt reports it was anxiety-provoking, but has difficulty giving in-depth information regarding topics discussed - Pt does appear to be less thought blocked and is observed to be attending more spontaneously to ADLs, however it seems that she would still have great difficulty tolerating community re-entry at this time. 01/19 - Continue titrated dose of venlafaxine 187.5mg qAM - continue scheduled olanzapine 2.5mg BID, offering prn dose of olanzapine if needed for acute anxiety - Family meeting yesterday, overall positive - family supportive, patient willing for case management referral 01/20 - Continue venlafaxine 187.5mg, patient declining further titration at this time. Will reduce lorazepam to 0.5mg qHS. Continue olanzapine 2.5mg BID with an additional dose as needed for anxiety - Pt met with [facility] yesterday, but is now declining case management referral without clear explanation - Pt seems to be decompensating recently, as she has been more isolative and has attended groups less consistently - now refusing outpatient recommendations 01/21 - Continue as above, pt reporting increased anticipatory anxiety related to discharge but feels ready to go home - Repeat meeting with [facility] today to complete case management referral - pt now saying she is willing for the service (2) Severe anxiety: 01/08 -The patient has been given a medically necessary private room because of her extreme restlessness and need to pace. -Patient has been offered a trial of diazepam 5 mg by mouth. The context is that the patient's report that lorazepam 1 mg by mouth providers earlier in the day was helpful to her, but the benefit was not sustained. Accordingly, we will try diazepam because it is longer acting. -As tolerated, the patient will be given diazepam 2 mg 3 times daily as a standing dose medication. -Hydroxyzine is available as an as needed medication. She will also be eligible to receive hydroxyzine 50 mg at bedtime for sleep, and her third dose of diazepam 2 mg will be given near to the hours of sleep, and may serve as a soporific. 01/09--Valium trial as per Dr. Zamora, monitor gait given age and fall risk. 01/10--patient is requesting something less sedating, will replace with Ativan 1 mg po BID starting tonight and as valium clears. 01/11 - Continue as above - patient continues to be very anxious, delayed responses to questions. 01/12 -patient has spent the last 2 days in bed, refusing groups, and reports lethargy and sedation. Will decrease lorazepam as above, and start risperidone. 01/13 - Patient is spent more time outside to her room and reports she feels still anxious without any improvement. - Lorazepam 0.5 mg every morning and 1 mg nightly will be continued. 01/14 -Anxiety much improved, decrease lorazepam to 1 mg at bedtime. 01/15 -The patient reports that she feels that her anxiety and tendency to obsessively ruminate has seemed a bit today. She attributes this to being "homesick," but it may be that the consolidation of risperidone to 1 mg at bedtime (with no daytime dosages) may be contributing. The plan will be to continue lorazepam 1 mg at bedtime, and, as above, we are changing her schedule for risperidone from 1 mg at bedtime with no daytime coverage to risperidone 0.25 mg twice a day, 7 and 1400, and 0.5 mg at bedtime. 01/16 -Trial olanzapine as above which may be more effective for anxiolysis and reduced risk for akathisia as compared to the Risperdal 01/17 -Reporting mild improvement in anxiety yesterday. Continuing olanzapine as alternative to Risperdal as above. -As anxiety improves, will consider tapering of benzodiazepine to reduce sedation 01/18 - Continue as above - patient reporting increased anxiety today, specifically as it relates to her family meeting 01/19 - Continue olanzapine 2.5mg BID scheduled, will have an additional prn dose available for acute anxiety as needed 01/21 - Continue as above. Pt reports anticipatory anxiety related to the idea of discharge, but does admit feeling ready and wanting to go home (3) UTI (urinary tract infection): 01/08 -Although the patient does not complain of any urinary tract infection symptoms, there were 4+ bacteria in her urine sample, and it was recommended in the emergency department that she be treated with an antibiotic empirically. -We will continue to monitor for symptoms of urinary tract infection 01/09--reviewed. UC pending. 01/10--corynbacter, no sensitivities, tolerating antibiotic, no urinary symptoms. 01/15 -No UTI symptoms noted or reported. Inventory Assets Strengths: Positive premorbid history. Strong supportive marriage. Intelligent. Needs: Improved mood. Risk Factors Assessment Male: No : Yes Do You Have Access To A Gun?: No Health Problems: Yes Mental Health Diagnoses: Yes Substance Use Disorders: No Previous Attempt: No Family History of Suicide: No Previous Psychiatric Hospitalization: Yes Hopelessness: Yes Smoker: No Protective Factors Assessment [employer] Beliefs: Yes : Yes Responsible for Young Children: No Employed: No Stable Relationships: Yes Supportive Family: Yes Good Rapport with Provider: No Absence of Any Risk Factors Above: No Interval History Identifying Information DELMI RAMIREZ is a 64-year-old F who currently lives in the [place] area with her . Has a history of anxiety and depression, and was admitted on 01/09/20 14:08 on a 201 voluntary commitment for intractable anxiety, inability to adequately care for her own physical needs, and severe depression. Chief Complaint "I'm ok. Confused and overwhelmed I guess." Review of Systems Notes Constitutional: denied Cardiovascular: denied Respiratory: denied Gastrointestinal: denied Neurological: denied Psychiatric: denies symptoms other than stated above Total of at least 10 systems reviewed, pertinent positives as above and in HPI. Sleep Information Total Hours of Sleep: 7.75 Sleep Comments: pt on q-15 minute checks Meal Information Percent Meal Consumed - Breakfast: 50 Percent Meal Consumed - Lunch: 30 Percent Meal Consumed - Dinner: 30 Nutrition Comment: pt. has poor appetite; not able to identify any foods that sound appealing at this time. Subjective Subjective Patient was seen & assessed and interval progress reviewed with nursing and social work. Staff report the patient had been withdrawn yesterday morning, but did attend most evening groups. Pt rated her mood a 4/10 and "good" last evening. [facility] merchandising representative is planning to meet with the patient this afternoon to complete the case management intake. Pt was seen today to assess progress since admission. Pt states she is "ok" today. Pt does admit to feeling "confused and overwhelmed" but states this is specifically related to "all this discharge stuff." Pt was reassured that many of her appointments have already been scheduled, and that we are planning to have staff sit with her to complete [facility] intake. Pt is now agreeable with receiving this service. When asked if patient felt prepared for anticipated discharge tomorrow, she states "Yeah, I think so. I'd really like to go." Pt is able to verbalize supports she will have available to ease this transition. Pt continues to deny SI as well as other needs at this time. She was encouraged to continue her participation in group programming. Physical Exam Psychiatric Orientation: alert, oriented x 3 and cooperative Apperance: appropriately dressed, appropriately groomed and appeared stated age Eye Contact: good eye contact Motor Behavior: no abnormal motor movements (observed while laying in bed) Speech: normal rate/rhythm/volume of speech Affect: + depressed affect still appearing withdrawn and depressed, though a little brighter and more interactive in conversation today Mood: + anxious mood ("confused and overwhelmed" - reports anticipatory anxiety related to d/c); no depressed mood Thought Process: goal directed thought process and clear/coherent thought process Thought Content: reality based without delusions; no hopelessness and no worthlessness Suicidal Thoughts: denies suicidal thoughts and denies suicidal intent Homicidal Thoughts: denies homicidal thoughts Hallucinations: no auditory hallucinations and no visual hallucinations Cognition: recent memory grossly intact, attention grossly intact and language grossly intact Estimated Intelligence: consistent with education level Insight: + fair insight Judgement: + fair judgement Vital Signs (Past 24 Hours) Last Vital Signs Temp 36.7 C 01/22/20 06:38 Pulse 82 01/22/20 06:38 Resp 16 01/22/20 06:38 BP 118/81 01/22/20 06:38 Pulse Ox 98 01/09/20 16:30 Results & Data ([facility]) Laboratory Results Laboratory Results - last 24 hr 01/22/20 08:48 POC Glucose 104 H Current Inpatient Medications Current Inpatient Medications: Current Inpatient Medications Acetaminophen (Acetaminophen 325 Mg Tab) 650 mg PO Q4H PRN PRN Reason: Headache or Minor Fever Stop: 02/08/20 14:07 Al Hydrox/Mg Hydrox/Simethicone (Aluminum/Magnesium Susp 30 Ml Udc) 30 ml PO Q4H PRN PRN Reason: GI Upset Stop: 02/08/20 14:07 Bismuth Subsalicylate (Bismuth Subsalicylate Liqd 236 Ml) 15 ml PO PRN PRN PRN Reason: Loose Stool Stop: 02/08/20 14:07 Hydroxyzine HCl (Hydroxyzine Hcl 25 Mg Tab) 50 mg PO HSZ PRN PRN Reason: Insomnia Stop: 02/08/20 14:07 Hydroxyzine HCl (Hydroxyzine Hcl 25 Mg Tab) 25 mg PO Q4H PRN PRN Reason: Anxiety Stop: 02/08/20 14:07 Lorazepam (Lorazepam 0.5 Mg Tab) 0.5 mg PO HS MOHIT Stop: 02/20/20 21:59 Last Admin: 01/21/20 21:15 Dose: 0.5 mg Documented by: Magnesium Hydroxide (Magnesium Hydroxide Susp 30 Ml Udc) 30 ml PO DAILY PRN PRN Reason: Constipation Stop: 02/08/20 14:07 Metformin HCl (Metformin Hcl Er 500 Mg Tabcr) 500 mg PO BIDM MOHIT Stop: 02/08/20 17:44 Last Admin: 01/21/20 17:30 Dose: 500 mg Documented by: Olanzapine (Olanzapine 2.5 Mg Tab) 2.5 mg PO BID MOHIT Stop: 02/17/20 20:59 Last Admin: 01/21/20 21:15 Dose: 2.5 mg Documented by: Olanzapine (Olanzapine 2.5 Mg Tab) 2.5 mg PO DAILY PRN PRN Reason: anxiety/thought blocking Stop: 02/20/20 08:59 Sodium Chloride (Sodium Chloride 0.65% Na Soln 45 Ml ([place])) 1 - 2 sprays NA PRN PRN PRN Reason: Nasal Dryness/Congestion Stop: 02/08/20 14:07 Venlafaxine HCl (Venlafaxine Hcl Xr 37.5 Mg Capxr) 37.5 mg PO QAM MOHIT Stop: 02/19/20 08:59 Last Admin: 01/21/20 09:01 Dose: 37.5 mg Documented by: Venlafaxine HCl (Venlafaxine Hcl Xr 150 Mg Capxr) 150 mg PO QAM MOHIT Stop: 02/19/20 08:59 Last Admin: 01/21/20 09:01 Dose: 150 mg Documented by: Mental Health & Subst Abuse Tx Psychiatrist Name of Psychiatrist: Shubham Power PA-C Psychiatrist's Date of Appointment with Psychiatrist: 01/28/20 Time of Appointment with Psychiatrist: 10:30am Psychiatric Appointment Comment: [address], [place] [id number] Therapist Name of Therapist: Ric Ortiz Therapist's Date of Therapist Appointment: 01/23/20 Time of Therapist Appointment: 10:30 a.m. Therapy Appointment Comment: [address] [place] [address] Installation Technician Name of Installation Technician: . Post Discharge Appointments Primary Care Physician Name Of Family Doctor: [facility] - Dr. Mark Kellogg Primary Care Provider Appointment Comment: [address], [address], [place] [address] Contact Information Discharge Discharge Address: [address] [place] [address],[place] [id number] (1) UTI (urinary tract infection) Hematuria presence: without hematuria Urinary tract infection type: site unspecified Qualified Code(s): N39.0 - Urinary tract infection, site not specified
[2020-01-22] MEDS: LORazepam 0.5 MG TAB PO SCH (21:17)
[2020-01-23] MEDS: VENLAFAXINE HCL XR 37.5 MG CAPXR PO SCH (08:42)
[2020-01-23] MEDS: VENLAFAXINE HCL XR 150 MG CAPXR PO SCH (08:42)
[2020-01-23] MEDS: OLANZAPINE 2.5 MG TAB PO SCH (08:42)
[2020-01-23] MEDS: metFORMIN HCL ER 500 MG TABCR PO SCH (08:42)
--- NOTE | 2020-01-23 11:47 | Discharge Summary ---
Date of Service January 23, 2020 History of Present Illness The patient is a 64-year-old woman who had been referred to the emergency room from her primary care physician's office because she disclosed that she had stopped taking all of her medications (somatic and psychiatric) approximately a month ago because of severe anxiety and feelings of impending doom. History is gathered both from the patient and, and directly, from her . The patient reports that until she did not have a history of any psychiatric illnesses. However, in the past 3 or 4 months the patient has developed the fairly rapid onset of severe symptoms of depression and anxiety. 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 Once later, when the business restrictions were revised and it would have been possible for her to reopen her business, she said that she had lost all of her customers and did not know how to go about reestablishing herself. The closure of the business represented a personal defeat for the patient and, also, placed a financial hardship on the family (at least according to the patient). Also, the patient notes that for about the past year she and her have been attempting to assist their 3 adult childrenall 3 of which reportedly have various problems, including marital difficulties and other problems that the patient declines to identify. Within this context, the patient became aware that her anxiety was worsening. She reports that her mood became very depressed, and she experienced other symptoms of depression including apathy, anergia, anhedonia, poor concentration ("I cannot even watch television") and severe anxious distress with a tendency to fret, catastrophize, and ruminate excessively. The patient describes her anxiety as feeling "extremely jumpy," and she notes that it is extremely difficult for her to sit still. Her notes that she is not sleeping very well, and seems to pace almost continuously at home. There is no cogwheeling on examination and, as above, the patient reports that she had stopped all of her medications approximately a month ago. She was hospitalized psychiatrically at [facility], and was placed on several psychiatric medications, including but not limited to sertraline and Abilify. The patient reported these medications did not help, and she states, "nothing has helped!" According to the , this time last year the patient was a high functioning woman who ran a successful business and was a source of emotional support for a number of other people. The patient, herself, says that this time last year she "had the world by the tail," but now she is "barely able to function." Within this context, the patient notes that she has lost approximately 35 pounds because she has had no appetite. She notes that the reason that she is not taking medications is that she is afraid of him because she is afraid that they will turn her into a "zombie," and that she will end up "1 of those people who sleeps all the time and just stares at the torres." Physical Exam Psychiatric Orientation: alert, oriented x 3 and cooperative Apperance: appropriately dressed and appropriately groomed Eye Contact: good eye contact Motor Behavior: steady gait and station The patient's speech is largely nonspontaneous, sparse, and somewhat soft and slowed. Affect: + depressed affect and + anxious affect Mood: + depressed mood Patient reports that while she is depression acknowledges that she is now feeling less depressed and significantly less anxious than she had been at the time of admission. Thought Process: goal directed thought process Thought Content: reality based without delusions Suicidal Thoughts: denies suicidal thoughts Homicidal Thoughts: denies homicidal thoughts Hallucinations: no auditory hallucinations and no visual hallucinations Cognition: recent memory grossly intact Estimated Intelligence: + above average estimated intelligence Insight: + limited insight Judgement: + fair judgement Vital Signs (Past 24 Hours) Last Vital Signs Temp 36.5 C 01/23/20 09:10 Pulse 94 H 01/23/20 09:10 Resp 16 01/23/20 09:10 BP 159/107 H 01/23/20 09:10 Pulse Ox 98 01/23/20 09:10 Principal Diagnosis Major depressive disorder, severe, single episode. Psychiatric Data During the course of hospitalization the patient was offered various modalities of psychiatric treatment and education. In addition, she was offered and received psychiatric chemotherapy. Initially, because the patient was con sistently anxious and appeared to have an agitated depression she was offered diazepam, which was effective. However, continued dosages of diazepam seemed to possibly cause excess sedation, and diazepam was discontinued in favor of low- dose lorazepam with fairly good results. Also, because of the agitated depression the patient was placed on venlafaxine extended release 37.5 mg a day and this dose was titrated during the stay to 150 mg a day. The patient reported that she feels that she is tolerating venlafaxine extended release at 150 mg a day without any noted difficulties. Although the patient remained anxious, she gradually became less agitated. She was also prescribed low-dose risperidone, but was thought to possibly being experiencing a mild akathisia and risperidone was decreased in favor of low-dose olanzapine. Risperidone and olanzapine's were prescribed as adjunctive medications for venlafaxine. Unfortunately, she elected to spend much of her time in her room, particularly during the initial part of the stay, and when encouraged to attend therapy groups she often was largely silent and participated only when called on. With the patient's permission, both her and her sister were actively involved in the treatment, telephonically. She complained of certain unsteadiness on her feet which she said had begun prior to admission. On a Romberg examination the patient appeared to have a unilateral pronator drift, and because of this, and because of the fact that the patient had had no previous psychiatric history and was experiencing a fairly rapid progression of symptoms, a CAT scan was ordered with contrast to rule out brain lesions or other abnormalities. The CAT scan was found to be normal. One of the concerns that had led to admission was the f act that the patient was not spontaneously participating in activities of daily living, such as bathing, grooming, and eating adequately. During the stay, she did progress in terms of her appetite and maintained adequate nutrition and hydration. However, she often had to be reminded to shower. However, by the time of discharge, the patient was independently bathing, grooming, and meeting her own physical needs without reminders. In group therapy, there was a sustained focus on helping the patient plan a daily routine with structured activities, in preparation of her discharge. Inactivity at home, combined with poor oral intake had been a major concern. The patient passively participated in the planning, but of note is that on the day of discharge when asked to describe her plans for keeping herself occupied at home, the patient responded, "I am still thinking about that." On the day of discharge she acknowledges that she remains depressed and somewhat anxious, but she also confirms that both her depression and anxiety have improved. She has consistently reported that she has not been having any suicidal thoughts, and this is consistent with her presentation at admission. The patient also acknowledges that she is having no thoughts of causing physical harm to the person or property of others. While still symptomatic, the patient repeatedly has complained of feeling homesick and eager to "get on with [her] life" at home. The treatment team is in agreement that the patient has reached maximum benefit during the current hospitalization. She is no longer considered to be gravely disabled or otherwise a threat to her own physical safety and wellbeing. We believe that she can now safely and effectively continue treatment on an outpatient basis. Certain characterologic traits were observed by the staff, and the patient did have a tendency to be somewhat passive-aggressive at times and prone to externalization. The patient also seemed angry underneath and slightly resentful of members of the treatment team. One of her identify concerns at admission was disappointment regarding the lives and behaviors of her 3 adult children. Number of attempts were made t o have the patient processed these feelings with this, but these were largely met with dismissive of response such as a shrug and a statement such as "yes, it is disappointing." Day of Discharge Assessment On the day of discharge, the patient was found to be appropriately dressed and groomed. She was cooperative with the discharge assessment and participated, at least passively, and day of discharge discharge planning. Her speech was only occasionally spontaneous, and often her answers consisted of just a few words. However, when requested, the patient was able to elaborate appropriately. Her thought processes demonstrated tight associations. The thought content was devoid of any psychotic features. As noted above, the patient's responses were sometimes seemingly passive-aggressive. For example, much of the focus of treatment during the stay was designed to help the patient plan and commit to a structured set of leisure skills and daily activities to avoid what her had described as being, "just sitting around all day not doing anything." Yet, discharge, the patient denied that this had been part of her therapy during the stay, shrugged and indicated that she will give the matter some thought in the future when she is home. The patient was strongly advised that this will be a formula for sinking back into deeper depression, and it is important for her to remain active, structure time, and avoid isolating herself with her ruminative thoughts. The patient did say that she is planning to participate in supportive psychotherapy. The patient is estimated to have an above average intelligence, based on reports from her family which seem to describe her as quite successful in's various spheres, and quickwitted and intelligent. She convincingly denies any thoughts of suicide, and this has been consistent throughout the hospital stay as well as prior to the admission. She was able to talk about her plans to hopefully reopen her business once the pandemic has passed and she unlawfully reopen. She tells us that her plan is to rely on "word of mouth" which has always been the means to which she has advertised, and she says that she feels reasonably certain at this point that when the time, she can regain her customer based. The patient also convincingly reports that she has no thoughts of causing physical harm to the person or property of others. Insight is somewhat limited, but she does recognize that she is depressed and anxious and is in need of treatment. (The patient had initially been quite reluctant to take medications and required a great deal of support and encouragement in this regard. She became fully adherent with her psychiatric as well as her somatic medications.) The patient's judgment is assessed as being at least fair. Transition of Care Transition Of Care Record: was reviewed with the patient Advance Directives Advance Directives Information Provided: Yes Advance Directives: No Mental Health Advance Directive: No Advance Directives on File: No Living Will: No Power of Special Procedures Technologist: No Advance Directives Reason:: Declines as Mental Health Visit. Risk Factors Assessment Major depressive disorder. Suboptimal response to treatment. History of dangerous neglect of self-care. Male: No : Yes Do You Have Access To A Gun?: No Health Problems: Yes Mental Health Diagnoses: Yes Substance Use Disorders: No Previous Attempt: No Family History of Suicide: No Previous Psychiatric Hospitalization: Yes Hopelessness: Yes Smoker: No Protective Factors Assessment Anabaptist Beliefs: Yes : Yes Responsible for Young Children: No Employed: No Stable Relationships: Yes Supportive Family: Yes Good Rapport with Provider: No Absence of Any Risk Factors Above: No Tobacco Cessation at Discharge Tobacco Cessation Medication Prescribed at Discharge: Not Applicable/Non-Smoker Antipsychotic Medications Olanzapine prescribed and low-dose as an adjunct for her antidepressant medication (venlafaxine). Total Time Total Time Spent: Greater Than 30 Minutes Total Time Includes: Examination of the patient, Discharge Planning, Medication Reconciliation and Communication with other providers Discharge Data Lab Results 10/01/09/20 01/09/20 09:57 09:57 09:57 WBC 5.13 RBC 4.83 Hgb 14.4 Hct 44.0 MCV 91.1 MCH 29.8 MCHC 32.7 RDW Std Deviation 47.4 H RDW Coeff of Americo 14.1 Plt Count 331 MPV 9.2 Immature Gran % (Auto) 0.0 Neut % (Auto) 64.1 Lymph % (Auto) 24.2 Letcher % (Auto) 10.5 Eos % (Auto) 0.8 Baso % (Auto) 0.4 Neut # (Auto) 3.29 Lymph # (Auto) 1.24 Letcher # (Auto) 0.54 Eos # (Auto) 0.04 Baso # (Auto) 0.02 Immature Gran # (Auto) 0.00 Sodium 139 Potassium 3.8 Chloride 106 Carbon Dioxide 26 Anion Gap 7.0 BUN 9 Creatinine 1.01 Est Cr Clr Drug Dosing 48.7 Est GFR ( Amer) 68.1 Est GFR (Non-Af Amer) 58.8 BUN/Creatinine Ratio 9.2 L Glucose 164 H POC Glucose Fasting Glucose Calcium 9.8 Total Bilirubin 0.7 AST 17 ALT 21 Alkaline Phosphatase 85 Total Protein 6.7 Albumin 3.4 Globulin 3.3 Albumin/Globulin Ratio 1.0 Triglycerides Cholesterol LDL Cholesterol, Calc VLDL Cholesterol, Calc HDL Cholesterol Cholesterol/HDL Ratio Vitamin B12 Folate TSH 0.522 Urine Color Urine Appearance Urine pH Ur Specific Herald Urine Protein Urine Glucose (UA) Urine Ketones Urine Blood Urine Nitrite Urine Bilirubin Urine Urobilinogen Ur Leukocyte Esterase Urine WBC (Auto) Urine RBC (Auto) U Hyaline Cast (Auto) U Epithel Cells (Auto) Urine Bacteria (Auto) Urine Crystals Salicylates < 1.7 L Urine Opiates Screen Ur Methadone, Qual Acetaminophen < 2 L Urine Barbiturates Ur Phencyclidine (PCP) U Amphetamin/Meth Scrn MDMA (Ecstasy) Screen U Benzodiazepines Scrn Ur Cocaine Metabolite U Marijuana (THC) Screen Ethyl Alcohol mg/dL COVID-19 Eval Order SARS-CoV-2, RNA, NAAT 01/09/20 01/09/20 01/09/20 09:57 10:48 10:48 WBC RBC Hgb Hct MCV MCH MCHC RDW Std Deviation RDW Coeff of Americo Plt Count MPV Immature Gran % (Auto) Neut % (Auto) Lymph % (Auto) Letcher % (Auto) Eos % (Auto) Baso % (Auto) Neut # (Auto) Lymph # (Auto) Letcher # (Auto) Eos # (Auto) Baso # (Auto) Immature Gran # (Auto) Sodium Potassium Chloride Carbon Dioxide Anion Gap BUN Creatinine Est Cr Clr Drug Dosing Est GFR ( Amer) Est GFR (Non-Af Amer) BUN/Creatinine Ratio Glucose POC Glucose Fasting Glucose Calcium Total Bilirubin AST ALT Alkaline Phosphatase Total Protein Albumin Globulin Albumin/Globulin Ratio Triglycerides Cholesterol LDL Cholesterol, Calc VLDL Cholesterol, Calc HDL Cholesterol Cholesterol/HDL Ratio Vitamin B12 Folate TSH Urine Color Dark Yellow Urine Appearance Cloudy A Urine pH 5.5 Ur Specific Herald 1.021 Urine Protein Negative Urine Glucose (UA) Negative Urine Ketones Negative Urine Blood Negative Urine Nitrite Negative Urine Bilirubin Negative Urine Urobilinogen Negative Ur Leukocyte Esterase 2+ H Urine WBC (Auto) >30 H Urine RBC (Auto) 5-10 H U Hyaline Cast (Auto) 10-30 H U Epithel Cells (Auto) >30 H Urine Bacteria (Auto) 4+ H Urine Crystals Not Reportable Salicylates Urine Opiates Screen Cancelled Ur Methadone, Qual Cancelled Acetaminophen Urine Barbiturates Cancelled Ur Phencyclidine (PCP) Cancelled U Amphetamin/Meth Scrn Cancelled MDMA (Ecstasy) Screen Cancelled U Benzodiazepines Scrn Cancelled Ur Cocaine Metabolite Cancelled U Marijuana (THC) Screen Cancelled Ethyl Alcohol mg/dL < 3.0 COVID-19 Eval Order SARS-CoV-2, RNA, NAAT 01/09/20 01/09/20 01/09/20 12:05 12:16 12:16 WBC RBC Hgb Hct MCV MCH MCHC RDW Std Deviation RDW Coeff of Americo Plt Count MPV Immature Gran % (Auto) Neut % (Auto) Lymph % (Auto) Letcher % (Auto) Eos % (Auto) Baso % (Auto) Neut # (Auto) Lymph # (Auto) Letcher # (Auto) Eos # (Auto) Baso # (Auto) Immature Gran # (Auto) Sodium Potassium Chloride Carbon Dioxide Anion Gap BUN Creatinine Est Cr Clr Drug Dosing Est GFR ( Amer) Est GFR (Non-Af Amer) BUN/Creatinine Ratio Glucose POC Glucose Fasting Glucose Calcium Total Bilirubin AST ALT Alkaline Phosphatase Total Protein Albumin Globulin Albumin/Globulin Ratio Triglycerides Cholesterol LDL Cholesterol, Calc VLDL Cholesterol, Calc HDL Cholesterol Cholesterol/HDL Ratio Vitamin B12 Folate TSH Urine Color Urine Appearance Urine pH Ur Specific Herald Urine Protein Urine Glucose (UA) Urine Ketones Urine Blood Urine Nitrite Urine Bilirubin Urine Urobilinogen Ur Leukocyte Esterase Urine WBC (Auto) Urine RBC (Auto) U Hyaline Cast (Auto) U Epithel Cells (Auto) Urine Bacteria (Auto) Urine Crystals Salicylates Urine Opiates Screen Neg Ur Methadone, Qual Neg Acetaminophen Urine Barbiturates Neg Ur Phencyclidine (PCP) Neg U Amphetamin/Meth Scrn Neg MDMA (Ecstasy) Screen Neg U Benzodiazepines Scrn Neg Ur Cocaine Metabolite Neg U Marijuana (THC) Screen Neg Ethyl Alcohol mg/dL COVID-19 Eval [facility] SARS-CoV-2, RNA, NAAT NEGATIVE 01/10/20 01/11/20 01/12/20 08:12 08:49 08:41 WBC RBC Hgb Hct MCV MCH MCHC RDW Std Deviation RDW Coeff of Americo Plt Count MPV Immature Gran % (Auto) Neut % (Auto) Lymph % (Auto) Letcher % (Auto) Eos % (Auto) Baso % (Auto) Neut # (Auto) Lymph # (Auto) Letcher # (Auto) Eos # (Auto) Baso # (Auto) Immature Gran # (Auto) Sodium Potassium Chloride Carbon Dioxide Anion Gap BUN Creatinine Est Cr Clr Drug Dosing Est GFR ( Amer) Est GFR (Non-Af Amer) BUN/Creatinine Ratio Glucose POC Glucose 121 H 109 H Fasting Glucose 120 H Calcium Total Bilirubin AST ALT Alkaline Phosphatase Total Protein Albumin Globulin Albumin/Globulin Ratio Triglycerides 170 H Cholesterol 222 H LDL Cholesterol, Calc 129 VLDL Cholesterol, Calc 34 HDL Cholesterol 59 Cholesterol/HDL Ratio 4 Vitamin B12 Folate TSH Urine Color Urine Appearance Urine pH Ur Specific Herald Urine Protein Urine Glucose (UA) Urine Ketones Urine Blood Urine Nitrite Urine Bilirubin Urine Urobilinogen Ur Leukocyte Esterase Urine WBC (Auto) Urine RBC (Auto) U Hyaline Cast (Auto) U Epithel Cells (Auto) Urine Bacteria (Auto) Urine Crystals Salicylates Urine Opiates Screen Ur Methadone, Qual Acetaminophen Urine Barbiturates Ur Phencyclidine (PCP) U Amphetamin/Meth Scrn MDMA (Ecstasy) Screen U Benzodiazepines Scrn Ur Cocaine Metabolite U Marijuana (THC) Screen Ethyl Alcohol mg/dL COVID-19 Eval Order SARS-CoV-2, RNA, NAAT 01/13/20 01/13/20 01/14/20 08:19 15:10 07:40 WBC RBC Hgb Hct MCV MCH MCHC RDW Std Deviation RDW Coeff of Americo Plt Count MPV Immature Gran % (Auto) Neut % (Auto) Lymph % (Auto) Letcher % (Auto) Eos % (Auto) Baso % (Auto) Neut # (Auto) Lymph # (Auto) Letcher # (Auto) Eos # (Auto) Baso # (Auto) Immature Gran # (Auto) Sodium Potassium Chloride Carbon Dioxide Anion Gap BUN Creatinine Est Cr Clr Drug Dosing Est GFR ( Amer) Est GFR (Non-Af Amer) BUN/Creatinine Ratio Glucose POC Glucose 102 H 183 H 96 Fasting Glucose Calcium Total Bilirubin AST ALT Alkaline Phosphatase Total Protein Albumin Globulin Albumin/Globulin Ratio Triglycerides Cholesterol LDL Cholesterol, Calc VLDL Cholesterol, Calc HDL Cholesterol Cholesterol/HDL Ratio Vitamin B12 Folate TSH Urine Color Urine Appearance Urine pH Ur Specific Herald Urine Protein Urine Glucose (UA) Urine Ketones Urine Blood Urine Nitrite Urine Bilirubin Urine Urobilinogen Ur Leukocyte Esterase Urine WBC (Auto) Urine RBC (Auto) U Hyaline Cast (Auto) U Epithel Cells (Auto) Urine Bacteria (Auto) Urine Crystals Salicylates Urine Opiates Screen Ur Methadone, Qual Acetaminophen Urine Barbiturates Ur Phencyclidine (PCP) U Amphetamin/Meth Scrn MDMA (Ecstasy) Screen U Benzodiazepines Scrn Ur Cocaine Metabolite U Marijuana (THC) Screen Ethyl Alcohol mg/dL COVID-19 Eval Order SARS-CoV-2, RNA, NAAT 01/14/20 01/14/20 01/15/20 08:17 08:17 12:47 WBC RBC Hgb Hct MCV MCH MCHC RDW Std Deviation RDW Coeff of [place]o Plt Count MPV Immature Gran % (Auto) Neut % (Auto) Lymph % (Auto) Letcher % (Auto) Eos % (Auto) Baso % (Auto) Neut # (Auto) Lymph # (Auto) Letcher # (Auto) Eos # (Auto) Baso # (Auto) Immature Gran # (Auto) Sodium Potassium Chloride Carbon Dioxide Anion Gap BUN Creatinine Est Cr Clr Drug Dosing Est GFR ( Amer) Est GFR (Non-Af Amer) BUN/Creatinine Ratio Glucose POC Glucose 103 H Fasting Glucose 107 H Calcium Total Bilirubin AST ALT Alkaline Phosphatase Total Protein Albumin Globulin Albumin/Globulin Ratio Triglycerides 157 H Cholesterol 241 H LDL Cholesterol, Calc 156 VLDL Cholesterol, Calc 31 HDL Cholesterol 54 Cholesterol/HDL Ratio 5 Vitamin B12 181 L Folate 6.61 TSH Urine Color Urine Appearance Urine pH Ur Specific Herald Urine Protein Urine Glucose (UA) Urine Ketones Urine Blood Urine Nitrite Urine Bilirubin Urine Urobilinogen Ur Leukocyte Esterase Urine WBC (Auto) Urine RBC (Auto) U Hyaline Cast (Auto) U Epithel Cells (Auto) Urine Bacteria (Auto) Urine Crystals Salicylates Urine Opiates Screen Ur Methadone, Qual Acetaminophen Urine Barbiturates Ur Phencyclidine (PCP) U Amphetamin/Meth Scrn MDMA (Ecstasy) Screen U Benzodiazepines Scrn Ur Cocaine Metabolite U Marijuana (THC) Screen Ethyl Alcohol mg/dL COVID-19 Eval Order SARS-CoV-2, RNA, NAAT 01/16/20 01/17/20 01/18/20 09:03 08:51 08:42 WBC RBC Hgb Hct MCV MCH MCHC RDW Std Deviation RDW Coeff of [place] Plt Count MPV Immature Gran % (Auto) Neut % (Auto) Lymph % (Auto) Letcher % (Auto) Eos % (Auto) Baso % (Auto) Neut # (Auto) Lymph # (Auto) Letcher # (Auto) Eos # (Auto) Baso # (Auto) Immature Gran # (Auto) Sodium Potassium Chloride Carbon Dioxide Anion Gap BUN Creatinine Est Cr Clr Drug Dosing Est GFR ( Amer) Est GFR (Non-Af Amer) BUN/Creatinine Ratio Glucose POC Glucose 119 H 108 H 107 H Fasting Glucose Calcium Total Bilirubin AST ALT Alkaline Phosphatase Total Protein Albumin Globulin Albumin/Globulin Ratio Triglycerides Cholesterol LDL Cholesterol, Calc VLDL Cholesterol, Calc HDL Cholesterol Cholesterol/HDL Ratio Vitamin B12 Folate TSH Urine Color Urine Appearance Urine pH Ur Specific Herald Urine Protein Urine Glucose (UA) Urine Ketones Urine Blood Urine Nitrite Urine Bilirubin Urine Urobilinogen Ur Leukocyte Esterase Urine WBC (Auto) Urine RBC (Auto) U Hyaline Cast (Auto) U Epithel Cells (Auto) Urine Bacteria (Auto) Urine Crystals Salicylates Urine Opiates Screen Ur Methadone, Qual Acetaminophen Urine Barbiturates Ur Phencyclidine (PCP) U Amphetamin/Meth Scrn MDMA (Ecstasy) Screen U Benzodiazepines Scrn Ur Cocaine Metabolite U Marijuana (THC) Screen Ethyl Alcohol mg/dL COVID-19 Eval Order SARS-CoV-2, RNA, NAAT 01/19/20 01/20/20 01/21/20 08:35 08:16 08:02 WBC RBC Hgb Hct MCV MCH MCHC RDW Std Deviation RDW Coeff of [place] Plt Count MPV Immature Gran % (Auto) Neut % (Auto) Lymph % (Auto) Letcher % (Auto) Eos % (Auto) Baso % (Auto) Neut # (Auto) Lymph # (Auto) Letcher # (Auto) Eos # (Auto) Baso # (Auto) Immature Gran # (Auto) Sodium Potassium Chloride Carbon Dioxide Anion Gap BUN Creatinine Est Cr Clr Drug Dosing Est GFR ( Amer) Est GFR (Non-Af Amer) BUN/Creatinine Ratio Glucose POC Glucose 101 H 106 H 99 Fasting Glucose Calcium Total Bilirubin AST ALT Alkaline Phosphatase Total Protein Albumin Globulin Albumin/Globulin Ratio Triglycerides Cholesterol LDL Cholesterol, Calc VLDL Cholesterol, Calc HDL Cholesterol Cholesterol/HDL Ratio Vitamin B12 Folate TSH Urine Color Urine Appearance Urine pH Ur Specific Herald Urine Protein Urine Glucose (UA) Urine Ketones Urine Blood Urine Nitrite Urine Bilirubin Urine Urobilinogen Ur Leukocyte Esterase Urine WBC (Auto) Urine RBC (Auto) U Hyaline Cast (Auto) U Epithel Cells (Auto) Urine Bacteria (Auto) Urine Crystals Salicylates Urine Opiates Screen Ur Methadone, Qual Acetaminophen Urine Barbiturates Ur Phencyclidine (PCP) U Amphetamin/Meth Scrn MDMA (Ecstasy) Screen U Benzodiazepines Scrn Ur Cocaine Metabolite U Marijuana (THC) Screen Ethyl Alcohol mg/dL COVID-19 Eval Order SARS-CoV-2, RNA, NAAT 01/22/20 01/23/20 08:48 08:06 WBC RBC Hgb Hct MCV MCH MCHC RDW Std Deviation RDW Coeff of Americo Plt Count MPV Immature Gran % (Auto) Neut % (Auto) Lymph % (Auto) Letcher % (Auto) Eos % (Auto) Baso % (Auto) Neut # (Auto) Lymph # (Auto) Letcher # (Auto) Eos # (Auto) Baso # (Auto) Immature Gran # (Auto) Sodium Potassium Chloride Carbon Dioxide Anion Gap BUN Creatinine Est Cr Clr Drug Dosing Est GFR ( Amer) Est GFR (Non-Af Amer) BUN/Creatinine Ratio Glucose POC Glucose 104 H 91 Fasting Glucose Calcium Total Bilirubin AST ALT Alkaline Phosphatase Total Protein Albumin Globulin Albumin/Globulin Ratio Triglycerides Cholesterol LDL Cholesterol, Calc VLDL Cholesterol, Calc HDL Cholesterol Cholesterol/HDL Ratio Vitamin B12 Folate TSH Urine Color Urine Appearance Urine pH Ur Specific Herald Urine Protein Urine Glucose (UA) Urine Ketones Urine Blood Urine Nitrite Urine Bilirubin Urine Urobilinogen Ur Leukocyte Esterase Urine WBC (Auto) Urine RBC (Auto) U Hyaline Cast (Auto) U Epithel Cells (Auto) Urine Bacteria (Auto) Urine Crystals Salicylates Urine Opiates Screen Ur Methadone, Qual Acetaminophen Urine Barbiturates Ur Phencyclidine (PCP) U Amphetamin/Meth Scrn MDMA (Ecstasy) Screen U Benzodiazepines Scrn Ur Cocaine Metabolite U Marijuana (THC) Screen Ethyl Alcohol mg/dL COVID-19 Eval Order SARS-CoV-2, RNA, NAAT Hospital Course (1) Severe depression: 01/08 -The patient has been admitted to the inpatient psychiatric service at [facility], a [facility] behavioral health unit. She has been referred for individual, group, activity and family therapy. She is also being closely monitored. -Begin venlafaxine ER 37.5 mg twice a day. 01/09-reviewed, Effexor XR appears to have been ordered for qam, she is currently refusing increase. 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 Zamora. 01/10--improved but seems to have some sedation and confusion either from Valium or resolving delirium component, doesn't appear to be progressing to catatonia. Need to establish baseline with family, ?head imaging. - agreed to increase to 75 mg po qam. 01/11 - Continue current medication regimen - venlafaxine 75mg increased this morning, and lorazepam 1mg BID. - Pt remains withdrawn and anxious, has not been attending to ADLs and requires significant encouragement to attend group programming. She has not showered, is still eating poorly, and has been dressing somewhat bizarrely (still wearing paper scrub shirt, but over other clothing - two layers of socks, etc). - Will gather collateral information and update sister, who has provided written collateral - patient has signed BRISA - Continue to update , patient will require family meeting when she is better able to participate - Continue MNPR for now 01/12 -Increase venlafaxine ER to 112.5 mg. -Reduce lorazepam to 0.5 mg every morning and 1 mg at bedtime to try to reduce daytime somnolence. Initiate risperidone 1 mg twice daily to target psychotic depression and thought blocking. Fasting labs ordered for tomorrow for monitoring on an atypical antipsychotic, as well as folate acid and vitamin B12 levels as part of her organic work-up for psychosis. Refer to PCP for brain MRI after discharge. -Continue private room due to psychosis, not yet ready to tolerate family meeting with . 01/13 -Continue venlafaxine ER 112.5 mg and risperidone 0.5 mg twice daily. If she can tolerate risperidone better without significant fatigue, then risperidone will be titrated further up to 1 mg twice a day. -Fasting lab results reviewed with the patient. Fasting glucose elevated at 107, triglycerides at 157 and cholesterol at 241 but all other values are WNL. Folate and vitamin B12 level are still pending. -Continue MNPR. 01/14 -Consolidate risperidone to bedtime to minimize daytime sedation. Continue to encourage patient to be out of her room participating in groups -Schedule family meeting with her and sister to begin discharge planning. Sister indicated interest in additional supports in the home, possibly mobile psych rehab or psych home health nursing. She would benefit from a PHP or IOP, unfortunately not available in our community. 01/15 -The patient numbers that she is feeling "more depressed" today, but adds that overall she knows that she is getting better and has been generally less depressed than at the time of admission. The patient also reports that she is tolerating her medications, including venlafaxine, well without any noted adverse effects. -Today, we will increase her dose of venlafaxine to venlafaxine XL 150 mg a day, first dose in the morning. -We are also changing her dose schedule for risperidone from 1 mg at bedtime to 0.25 mg twice a day and 0.5 mg at bedtime because today the patient says that she is feeling more depressed and somewhat more prone to rumination and excess jorje worrying than she had yesterday. -The patient appears to be responding favorably to a combination of venlafaxine and risperidone. We are in the process of making various adjustments and titrations to these medications. Her sleep is improved and her anxiety levels have diminished. However, the patient continues to tell us that she is depressed, and continues to require assistance encouragement to perform basic activities of daily living such as showering. 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 twice daily today and discontinue her daytime Risperdal. If we see evidence of improved response, we will plan to discontinue the nighttime Risperdal and continue with the olanzapine instead tomorrow. Reviewed history of diabetes and metabolic risks associated with atypical antipsychotics with patient. She reports her diabetes is typically well controlled at home. She has recently suffered a significant weight loss associated with her depression. She will need to watch weight trend on olanzapine however hopefully this is only a temporary intervention until her depression more adequately remits -She will continue the increased dose of Effexor as above with plan to continue titration pending need and tolerability. 01/17 -Affect modestly brighter today and appears a little less catastrophic and thought content. Additionally she is pending slowly increasing amounts of time in activities outside of room -She looks less restless and reports decreased rumination today, will discontinue the Risperdal completely and continue the olanzapine at 2.5 mg p.o. twice daily moving to morning and bedtime -Discussed consideration for dose further escalation of Effexor which remains well-tolerated but will defer decision to tomorrow at her request 01/18 - Will titrate venlafaxine to 187.5mg tomorrow morning. Continue olanzapine at 2.5mg BID at this time. Continue lorazepam at HS, though may consider ability to gradually taper dose as tolerated. - Family meeting via phone with and sister today. Pt reports it was anxiety-provoking, but has difficulty giving in-depth information regarding topics discussed - Pt does appear to be less thought blocked and is observed to be attending more spontaneously to ADLs, however it seems that she would still have great difficulty tolerating community re-entry at this time. 01/19 - Continue titrated dose of venlafaxine 187.5mg qAM - continue scheduled olanzapine 2.5mg BID, offering prn dose of olanzapine if needed for acute anxiety - Family meeting yesterday, overall positive - family supportive, patient willing for case management referral 01/20 - Continue venlafaxine 187.5mg, patient declining further titration at this time. Will reduce lorazepam to 0.5mg qHS. Continue olanzapine 2.5mg BID with an additional dose as needed for anxiety - Pt met with [facility] yesterday, but is now declining case management referral without clear explanation - Pt seems to be decompensating recently, as she has been more isolative and has attended groups less consistently - now refusing outpatient recommendations 01/21 - Continue as above, pt reporting increased anticipatory anxiety related to discharge but feels ready to go home - Repeat meeting with [facility] today to complete case management referral - pt now saying she is willing for the service 01/22 -Patient was discharged to the community today. Her condition is improved, but her depression and anxiety persist. Her prognosis is somewhat guarded because the patient does not seem to have fully committed herself to adherence with recommendations, such as the need for her to be active and apply structured time in her daily routine following discharge. (2) Severe anxiety: 01/08 -The patient has been given a medically necessary private room because of her extreme restlessness and need to pace. -Patient has been offered a trial of diazepam 5 mg by mouth. The context is that the patient's report that lorazepam 1 mg by mouth providers earlier in the day was helpful to her, but the benefit was not sustained. Accordingly, we will try diazepam because it is longer acting. -As tolerated, the patient will be given diazepam 2 mg 3 times daily as a standing dose medication. -Hydroxyzine is available as an as needed medication. She will also be eligible to receive hydroxyzine 50 mg at bedtime for sleep, and her third dose of diazepam 2 mg will be given near to the hours of sleep, and may serve as a soporific. 01/09--Valium trial as per Dr. Zamora, monitor gait given age and fall risk. 01/10--patient is requesting something less sedating, will replace with Ativan 1 mg po BID starting tonight and as valium clears. 01/11 - Continue as above - patient continues to be very anxious, delayed responses to questions. 01/12 -patient has spent the last 2 days in bed, refusing groups, and reports l ethargy and sedation. Will decrease lorazepam as above, and start risperidone. 01/13 - Patient is spent more time outside to her room and reports she feels still anxious without any improvement. - Lorazepam 0.5 mg every morning and 1 mg nightly will be continued. 01/14 -Anxiety much improved, decrease lorazepam to 1 mg at bedtime. 01/15 -The patient reports that she feels that her anxiety and tendency to obsessively ruminate has seemed a bit today. She attributes this to being "homesick," but it may be that the consolidation of risperidone to 1 mg at bedtime (with no daytime dosages) may be contributing. The plan will be to continue lorazepam 1 mg at bedtime, and, as above, we are changing her schedule for risperidone from 1 mg at bedtime with no daytime coverage to risperidone 0.25 mg twice a day, 7 and 1400, and 0.5 mg at bedtime. 01/16 -Trial olanzapine as above which may be more effective for anxiolysis and reduced risk for akathisia as compared to the Risperdal 01/17 -Reporting mild improvement in anxiety yesterday. Continuing olanzapine as alternative to Risperdal as above. -As anxiety improves, will consider tapering of benzodiazepine to reduce sedation 01/18 - Continue as above - patient reporting increased anxiety today, specifically as it relates to her family meeting 01/19 - Continue olanzapine 2.5mg BID scheduled, will have an additional prn dose avai lable for acute anxiety as needed 01/21 - Continue as above. Pt reports anticipatory anxiety related to the idea of discharge, but does admit feeling ready and wanting to go home 01/22 -The patient is discharged today. She will continue venlafaxine, olanzapine, and lorazepam on an outpatient basis. -She reports that she is feeling significantly less anxious than she had been feeling prior to and at the time of admission, but reports that she is continued to have some trouble some anxiety at this point. (3) UTI (urinary tract infection): 01/08 -Although the patient does not complain of any urinary tract infection symptoms, there were 4+ bacteria in her urine sample, and it was recommended in the emergency department that she be treated with an antibiotic empirically. -We will continue to monitor for symptoms of urinary tract infection 01/09--reviewed. UC pending. 01/10--corynbacter, no sensitivities, tolerating antibiotic, no urinary symptoms. 01/15 -No UTI symptoms noted or reported. 01/22 -The patient reiterates that she is not experiencing any symptoms of urinary tract infection such as frequency, burning, or hesitancy, and she describes her urine as being "clear and yellow." Mental Health & Subst Abuse Tx Psychiatrist Name of Psychiatrist: Shubham Power PA-C Psychiatrist's Date of Appointment with Psychiatrist: 01/28/20 Time of Appointment with Psychiatrist: 10:30am [facility] [address] [facility]This will be a phone appt, they will call you) Psychiatrist Release of Information: Obtained, Reviewed and Signed Therapist Name of Therapist: Ric Ortiz Therapist's Date of Therapist Appointment: 01/23/20 Time of Therapist Appointment: 10:30 a.m. Therapy Appointment Comment: [address] [place] [address] Therapist Release of Information: Obtained, Reviewed and Signed Director Risk Name of Director Risk: DAYAN Mahmood Phone Number for Director Risk: [phone] Case Management Appointment Comment: She will call you to schedule Director Risk Release of Information: Obtained, Reviewed and Signed Post Discharge Appointments Primary Care Physician Name Of Family Doctor: [facility] - Dr. Mark Kellogg Primary Care Provider Appointment Comment: [address], [address], [place] [address] Primary Care Release of Information: Obtained, Reviewed and Signed Smoking Cessation Counseling Tobacco Cessation Medication Prescribed at Discharge: Not Applicable/Non-Smoker Contact Information Discharge Discharge [address]: [address] [place] [id number] Discharge Plan Discharge Items Patient Disposition: Home - Self-Care Reason For Visit: MAJOR DEPRESSION Discharge Diagnosis: Major Depression Activity: Resume your previous activity Activity Comment: Keep active and avoid inactivity. Structure your time. Non-emergency contact: Primary Care Provider, Psychiatrist and Therapist Call non-emergency contact if: you have any medication questions and your symptoms worsen Follow-up/Referrals: Bess Flores [Primary Care Provider] - Diet: Carb Consistent or DM2 Addtl Attending Provider Instructions: SPECIAL CARE INSTRUCTIONS: 1. Follow through with your scheduled aftercare appointments. If unable to keep an appointment, please call to reschedule. 2. Take your medication only as prescribed. Medication should not be changed or stopped without the approval of your doctor. In the event of worsening symptoms or concerns about side effects, contact your doctor immediately. 3. Utilize new healthy coping skills, anger management skills, and stress management skills learned during your hospitalization. Journal feelings and process them with a support person. Identify stressors or situations that may result in relapse, deterioration or inappropriate behaviors and develop a plan to deal with those issues. 4. If your coping skills are ineffective and you are in crisis, contact your outpatient providers for direction. If unable to reach your providers, please call the [facility] CRISIS LINE AT , go to the [facility] walk-in center at [address], [address], [place], or go to the closest Emergency Room. 5. Avoid alcohol and un-prescribed drugs. 6. You have been provided with the Mental Health Advance Directives Pamphlet for your review. AFTERCARE APPOINTMENTS: * Please call your insurance company prior to your scheduled appointment to confirm your aftercare providers are covered. Take your insurance information to your appointments. WHO TO CALL AND WHEN: Medical Emergencies: For questions or emergencies related to your hospital stay, please contact the Inpatient Behavioral Health Unit at [phone]. A instructor psychiatric aide is on-call 16/10 for the Behavioral Health Unit for emergencies At any time you feel your situation is an emergency, you may also call 511 immediately. Pending Studies at Discharge: No Stand-Alone Forms: My Life[employer], Smoking Cessation, Suicide Prevention Resources Medications and DC Order Prescriptions: New venlafaxine 37.5 mg Capsule,Extended Release 24hr 37.5 mg PO QAM Qty: 30 RF: 0 venlafaxine 150 mg Capsule,Extended Release 24hr 150 mg PO QAM Qty: 30 RF: 0 olanzapine 2.5 mg Tablet 2.5 mg PO BID Qty: 30 RF: 0 lorazepam 0.5 mg Tablet 0.5 mg PO HS PRN (Reason: Sleep) Qty: 30 RF: 0 Continued pyridoxine (vitamin B6) 50 mg capsule 50 mg PO DAILY RF: 0 albuterol sulfate [ProAir HFA] 90 mcg/actuation Hfa Aerosol Inhaler 2 puff INHALATION QID PRN (Reason: Wheezing) RF: 0 ciclopirox 8 % Solution 1 applic TOPICAL HS RF: 0 pravastatin 80 mg Tablet 80 mg PO HS RF: 0 amlodipine 10 mg Tablet 10 mg PO DAILY RF: 0 telmisartan 80 mg Tablet 80 mg PO DAILY RF: 0 mupirocin 2 % Ointment 1 applic TOPICAL TID RF: 0 metformin 500 mg Tablet 500 mg PO BID RF: 0 coenzyme Q10 [CoQ-10] 30 mg Capsule 90 mg PO DAILY RF: 0 cholecalciferol (vitamin D3) 25 mcg (1,000 unit) Tablet 25 mcg PO DAILY RF: 0 aspirin 81 mg Tablet,Delayed Release (Dr/Ec) 81 mg PO DAILY RF: 0 montelukast 10 mg Tablet 10 mg PO HS RF: 0 fluticasone propion-salmeterol [Advair Diskus] 250-50 mcg/dose Blister With Device 1 inh INHALATION BID RF: 0 fluticasone propionate 50 mcg/actuation [place],Suspension 1 spray INTRANASAL DAILY RF: 0 Discontinued aripiprazole 5 mg Tablet 5 mg PO BID RF: 0 nortriptyline 50 mg Capsule 50 mg PO HS RF: 0 Discharge Orders: Discharge Order (Routine); Ordered 01/23/20 Ordered By: Emir Segal/Other Patient Handouts: Depression Affects Your Mind and Body, Diabetic Neuropathy Admission Data Admit Date/Time: 01/09/20 14:08 Attending Provider: My [facility] Admit Provider: Emir Zamora Primary Care Provider: Bess Flores Other Interventions: Discharge Summary Assessment (RN) Last Done: 01/23/20 09:10 PSY Interdisciplinary Discharge Planning Last Done: 01/23/20 09:28 [place] [address] D/C day mgmt > 30 min Patient Type Established History Expanded Problem Focused Medical Decision Making Moderate Complexity Diagnoses Severe depression F32.2 Severe anxiety F41.9 UTI (urinary tract infection) N39.0 Hematuria presence: without hematuria Urinary tract infection type: site unspecified Time Spent (min) 60
== END 2020-01-23 09:52 | disposition home or self-care (01) | DRG 885 ==
LOC: ED 09:20 → SUATTDRO 14:08 → 3S 14:08